=== PATIENT | male | born 1955 | race Caucasian/White ===

== ENCOUNTER 2017-09-16 04:02 | Inpatient (IN) | payer OTHER, SELFPAY ==
[2017-09-16] VITALS (23 sets, daily range): BP systolic 80–108; BP diastolic 44–66; PULSE 76–111; RESP 16–35; TEMP 36.3–37.4; O2SAT 76–96; BMI 16.9; BMI 16.5; BMI 17.0
--- NOTE | 2017-09-16 04:42 | EKG12_ITS ---
Test Reason : SOB Blood Pressure : / mmHG Vent. Rate : 101 BPM Atrial Rate : 101 BPM P-R Int : 238 ms QRS Dur : 136 ms QT Int : 336 ms P-R-T Axes : 081 041 191 degrees QTc Int : 435 ms Sinus tachycardia with 1st degree A-V block Left bundle branch block Abnormal ECG Confirmed by GAVINO CASON, JOSE ([id number]), magazine editor DIXON ALLEN ([id number] on 09/19/2017 3:05:17 PM Referred By: CHON Confirmed By:JOSE MANCIA MD
[2017-09-16 05:00] LABS: Absolute Lymphocyte Count 0.22 X10^3/ul (0.83-4.51); Absolute Neutrophil Count 11.2 X10^3/uL (2.0-7.7); Basophil# 0.02 X10^3/uL; Basophil% 0.2 % (0-1); Eosinophil# 0.02 X10^3/uL; Eosinophils% 0.2 % (0-5); Hematocrit 35.3 % (40-54); Hemoglobin 12.1 g/dl (13.0-16.5); Lymphocyte # 0.22 X10^3/ul (4.0); Lymphocyte % 1.8 % (19-41); Mean Corp Hgb Conc 34.3 g/gl (32-36); Mean Corpuscular Hgb 29.5 pg (27.0-32.0); Mean Corpuscular Volume 86.1 fL (80-94); Mean Platelet Vol. 10.4 fl (6.2-12.0); Monocyte# 0.47 X10^3/uL; Monocyte% 3.9 % (0-10); Neutrophil # 11.21 X10^3/uL (2.7-7.7); Neutrophil % 93.7 % (47-70); Platelet Count 386 K/mm3 (150-450); RBC Distribution Width CV 19.7 % (11.6-14.6); RBC Distribution Width SD 60.1 fl (35.1-43.9)
--- NOTE | 2017-09-16 05:00 | RAD_ITS ---
STUDY: X-RAY CHEST REASON FOR EXAM: Male, 62 years old. Shortness of breath TECHNIQUE: Single AP portable view of the chest. COMPARISON: 01/04/2017. FINDINGS: The lungs are hyper expanded. Patchy left lung opacities. Chronic interstitial changes. Surgical clips right apex. There is no demonstrated pleural abnormality. Normal size heart. Patient status post sternotomy. Normal mediastinum and liza. Normal visualized pulmonary arteries. Normal visualized aortic arch and descending thoracic aorta. Normal visualized thoracic spine. Normal visualized ribs and shoulders. Healed right clavicle. There is no demonstrated abnormality of the visualized soft tissue structures of the upper abdomen. RAD/Chest 1 View (Portable) IMPRESSION: Patchy left lung infiltrates. Hyperinflation. Electronically Signed: Live Fajardo DO at 6:08 EDT , Service support ,
[2017-09-16 05:02] LABS: Differential Indicated SCAN CRITERIA MET; POSITIVE COUNT NO; POSITIVE DIFFERENTIAL YES; POSITIVE MORPHOLOGY NO
[2017-09-16 05:09] LABS: ALB/GLOB Ratio 0.6 RATIO (0.9-2.4); AST(SGOT) 26 U/L (15-37); Alanine Aminotransfer ALT/SGPT 31 U/L (16-61); Albumin, Serum 2.9 g/dL (3.2-5.0); Alkaline Phosphatase 198 U/L (45-117); Anion Gap 9 (5-15); BUN 30 mg/dL (7-18); BUN/Creat Ratio 25.2 RATIO (10-20); Calcium,Total 8.2 mg/dL (8.5-10.1); Chloride 99 mmol/L (98-107); Creatinine, Serum 1.19 mg/dL (0.70-1.30); EST Glomerular Filtration Rate 66 mL/min (>60); Est Glom Filt Rate - Afr Amer 80 mL/min (>60); Estimated Creatinine Clearance 56.92 ml/min; Globulin 4.6 g/dL (2.2-4.2); Glucose 84 mg/dL (74-106); Potassium 4.3 mmol/L (3.5-5.1); Protein, Total 7.5 g/dL (6.4-8.2); Sodium Level 138 mmol/L (136-145)
[2017-09-16 05:12] LABS: Differential Comment SCANNED
[2017-09-16 05:16] LABS: Lactic Acid 2.7 mmol/L (0.4-2.0)
[2017-09-16 05:53] LABS: Prothrombin Time (Protime)PT. 42.8 SECONDS (11.7-14.9)
[2017-09-16 05:54] LABS: Partial Thromboplast Time 52.6 Seconds (24.1-36.2)
[2017-09-16 06:01] LABS: International Normalized Ratio 4.5
--- NOTE | 2017-09-16 06:02 | NURSING ---
Addendum entered by Aditi Lemus 09/16/17 06:10: Original Note: MD NOTIFIED OF PT4.5
[2017-09-16 06:11] LABS: Allen Test POS; Base Excess 2 mmol/L (-2 to +2); Bicarbonate 26.6 mmol/L (22-26); Blood Gas Specimen Type ART; O2 Delivery Device Nasal Can; PO2 75 mmHG (75-100); SITE R Radial; SO2 95 % (95-99); Time Given 606; Total Carbon Dioxide 28 mmol/L; pCO2 44.7 mmHg (35-45); pH 7.38 (7.35-7.45)
[2017-09-16 06:55] LABS: Mucous, Urine 0 SEEN /hpf (<or=2+); Red Blood Cells-Urine 0 SEEN /hpf (0-5)
[2017-09-16 07:01] LABS: Color, Urine Yellow (Yellow); Glucose, Dipstick Normal (Normal); Ketone-Dipstick 5 mg/dl (Negative); Leukocyte Esterase-Dipstick 25 /ul (Negative); Nitrite-Dipstick Negative (Negative); Occult Blood-Urine Negative /ul (Negative); Protein-Dipstick 30 mg/dl (Negative); Specific Gravity, Urine 1.025 (1.002-1.030); Urine Clarity Sl. Cloudy (Clear); Urine Urobilinogen 8 mg/dl (Normal)
[2017-09-16 07:08] LABS: Urine Bilirubin Dipstick 1 mg/dL (Negative)
[2017-09-16 07:09] LABS: Bacteria RARE /hpf (None Seen); Squamous Epithelial Cells - UA 0-5 SEEN /hpf (0-5); White Blood Cells 0-5 SEEN /hpf (0-5)
--- NOTE | 2017-09-16 07:35 | ED.RN ---
REPEAT LACTIC ACID DRAWN PER HOSPITAL POLICY
[2017-09-16 08:49] LABS: Reflex Lactate? Y
[2017-09-16 08:59] LABS: Lactic Acid 1.5 mmol/L (0.4-2.0)
--- NOTE | 2017-09-16 09:48 | NURSING ---
CALLED L[facility]TON IN ER TO TELL HER PT WAS OKAY TO SEND UP.
[2017-09-16] MEDS: 0.9% Normal Saline 1,000 ML 150 ML IV (10:30)
[2017-09-16] MEDS: Heparin Injection (Vial) 5,000 UNIT/ML VIAL 5000 UNIT SC ×2 (11:17→21:18)
--- NOTE | 2017-09-16 12:00 | CON.PCM_ITS ---
Problem List (1) Dysphasia Status: Acute (2) Aspiration pneumonia due to food (regurgitated) Status: Acute Qualifiers: Laterality: left Lung location: upper lobe of lung Qualified Code(s): J69.0 - Pneumonitis due to inhalation of food and vomit (3) CHF (congestive heart failure) Status: Chronic (4) Subtherapeutic international normalized ratio (INR) Status: Acute (5) Chronic anticoagulation Status: Chronic (6) Status post mitral valve replacement Status: Chronic (7) Status post aortic valve replacement Status: Chronic (8) Normochromic normocytic anemia Status: Chronic (9) Atrial fibrillation Status: Chronic Qualifiers: (10) Hodgkin's disease in remission Status: Chronic Reason for Consult Date of Consultation: 09/16/17 Reason for Consultation: Hypoxic respiratory failure History of Present Illness: The patient is a 62 year old M, with past medical history listed below, who presented to [facility] on 09/16/2017 secondary to increasing shortness of breath. Patient reports a long history of progressive shortness of breath, but had an acute aspiration event yesterday. Patient states that he tried to take some p.o. food while lying on his left side. Patient developed a coughing episode. Patient denies any obvious emesis, but states he had a cough productive of green to yellow sputum this morning. No ER documentation is reported at this time, but the E HR states the patient was 76% on room air, blood pressure of 94/66 with a temperature of 37.4?C. Patient was placed on 6 L nasal cannula oxygen with improvement. There was some concern patient may require intubation, but did improve with therapy provided in the emergency room. Patient was admitted to the PCU for further monitoring. On my arrival, patient reports subjective improvement in overall condition. Patient reports some fatigue and a cough productive of yellow to green sputum. Patient denies any exposure to asbestos or TB. Patient did receive radiation as part of his cancer therapy. Patient reports a history of pleural effusions, but this is improved after initiation of Lasix therapy. Patient states this does not feel like a pleural effusion. Chest x-ray shows extensive left-sided infiltrates. Patient was clear that he was lying on his left side during the choking episode. Patient reports a long history of breathing difficulties, but has had extensive workup and [facility] indicating dysphasia. Patient states he has been seen by Dr. Mallory in the past at [facility] secondary to pleural effusions. Patient is unclear if he ever had pulmonary function testing. Patient states he was on supplemental oxygen transiently in the past, but this was discontinued sometime ago. Patient does not routinely use inhaler therapy. Patient does have a history of Hodgkin's lymphoma status post radiation. Patient has noted significant weight loss following therapy in an inability to regain weight. Extensive workup at [facility] has shown patient has dysphasia and is supposed to have a PEG tube placed early next week per his report. Patient is on prednisone therapy at baseline, but is unclear of the medication. Patient does report an extensive heart history that is also taking care of at [facility]. Past Medical History Past Medical History (Chronic Problems): Chronic Problems CHF (congestive heart failure) (Chronic) Hypothyroidism (Chronic) Chronic anticoagulation (Chronic) Status post mitral valve replacement (Chronic) Status post aortic valve replacement (Chronic) Normochromic normocytic anemia (Chronic) Bilateral pleural effusion (Chronic) Atrial fibrillation (Chronic) Pleural effusion (Chronic) Hodgkin's disease in remission (Chronic) Mitral valve regurgitation (Chronic) Aortic valve regurgitation (Chronic) Allergies meloxicam Adverse Reaction (Verified 09/16/17 04:11) Nausea naproxen [From Naprosyn] Adverse Reaction (Verified 09/16/17 04:11) Nausea Home Medications: Ambulatory Orders Medication Instructions Recorded Aspirin [Aspirin, Baby] 81 mg PO DAILY@0800 01/23/16 Furosemide [Lasix] 20 mg PO QODAY 01/23/16 Levothyroxine [Synthroid] 100 mcg PO DAILY 01/23/16 Amiodarone HCl [Pacerone] 100 mg PO DAILY 01/01/17 Omeprazole 20 mg PO DAILY 01/01/17 Prednisone 5 mg PO DAILY 01/01/17 Spironolactone [Aldactone] 25 mg PO QODAY 09/16/17 Warfarin [Coumadin] 1 mg PO DAILY@1700 09/16/17 Surgical History: arthroscopy, knee, - - splenectomy for Hodgkin's disease, fracture rt arm, repair of right foot drop, exploratory laparotomy of chest and abdomen for Hodgkin's disease, s/p nasal surgery, bioprosthetic AVR and MVR at [facility] Psychiatric History: No pertinent psych hx Smoking Status: Former smoker - *Family History Maternal History Items: Cancer - colon cancer Review of Systems Comment: See HPI, otherwise negative ?10 systems. Patient Problems: Active and Suspected Problems Dysphasia (Acute) Aspiration pneumonia due to food (regurgitated) (Acute) Objective: Chest x-ray was personally reviewed and shows extensive alveolar infiltrates on the left. - Physical Exam General: Alert, Oriented x3, Cooperative, - - Mild respiratory distress. Cachectic. Appears older than stated age. HEENT: Atraumatic, PERRLA, EOMI, Normocephalic, - - No scleral icterus or injection noted. Oral: Moist Mucosa, No Gingival or Mucosal Lesions/ Ulcerations, - - Good dentition noted. Neck: Supple, No JVD, No Nodes, Trachea Midline Lungs: No wheeze, No rales, Diminished, Rhonchi - Left, - - Symmetric expansion. No dullness to percussion. Cardiovascular: Normal S1, Normal S2, No murmurs, Irregular Rate, No rub noted, No Gallop, - - Mechanical heart sounds noted. Abdomen: Bowel Sounds Present, Soft, Non Tender, Non-Distended Extremities: No cyanosis, No edema, Capillary Refill Less than 3 Seconds, Clubbing Skin: No rashes, No breakdown Musculoskeletal: No Tenderness to Palpation of Joints or Extremities Lymphatic: No Cervical, Supraclavicular, or Inguinal Adenopathy Neurological: Cranial nerves II-XII grossly intact, Neuro grossly intact, Motor Exam 5/5 strength throughout Psych/Mental Status: Alert and oriented to time, place, person, mood and affect Vital Signs Temp Pulse Resp BP Pulse Ox 36.7 C 78 18 103/57 L 95 09/16/17 11:19 09/16/17 11:19 09/16/17 11:19 09/16/17 11:19 09/16/17 11:19 Oxygen Flow Rate (L/min) 4 Oxygen Delivery Method Nasal Cannula Weight: 59.9 kg Body Mass Index (BMI) 16.5 Laboratory Tests 09/16/17 09/16/17 09/16/17 04:20 04:20 04:20 WBC 12.0 H RBC 4.10 L Hgb 12.1 L Hct 35.3 L MCV 86.1 MCH 29.5 MCHC 34.3 RDW 19.7 H RDW Differential 60.1 H Plt Count 386 MPV 10.4 Immature Gran % (Auto) 0.200 Neut % (Auto) 93.7 H Lymph % (Auto) 1.8 L Cottle % (Auto) 3.9 Eos % (Auto) 0.2 Baso % (Auto) 0.2 Absolute Neuts (auto) 11.2 H Absolute Lymphs (auto) 0.22 L Total Counted Not Reportable Differential Comment SCANNED PT Cancelled INR Cancelled APTT Cancelled Specimen Type Sample Site pH Bicarbonate Actual POC Total CO2 Base Excess O2 Saturation ABG pCO2 ABG pO2 Percy Test O2 Delivery Device Liter Flow Blood Gas Notified Whom Blood Gas Notified Time Sodium 138 Potassium 4.3 Chloride 99 Carbon Dioxide 30.0 Anion Gap 9 BUN 30 H Creatinine 1.19 Estim Creat Clear Calc 56.92 Est GFR (MDRD) Af Amer 80 Est GFR (MDRD) Non-Af 66 BUN/Creatinine Ratio 25.2 H Glucose 84 Lactic Acid Calcium 8.2 L Total Bilirubin 0.80 AST 26 ALT 31 Alkaline Phosphatase 198 H Troponin I < 0.015 Total Protein 7.5 Albumin 2.9 L Globulin 4.6 H Albumin/Globulin Ratio 0.6 L Urine Color Urine Clarity Urine pH Ur Specific [place] Urine Protein Urine Glucose (UA) Urine Ketones Urine Occult Blood Urine Nitrite Urine Bilirubin Urine Urobilinogen Ur Leukocyte Esterase Urine RBC Urine WBC Ur Squamous Epith Cells Urine Bacteria Urine Mucus 09/16/17 09/16/17 09/16/17 04:20 05:00 05:40 WBC RBC Hgb Hct MCV MCH MCHC RDW RDW Differential Plt Count MPV Immature Gran % (Auto) Neut % (Auto) Lymph % (Auto) Cottle % (Auto) Eos % (Auto) Baso % (Auto) Absolute Neuts (auto) Absolute Lymphs (auto) Total Counted Differential Comment PT Cancelled 42.8 H INR Cancelled 4.5 H* APTT Cancelled 52.6 H Specimen Type Sample Site pH Bicarbonate Actual POC Total CO2 Base Excess O2 Saturation ABG pCO2 ABG pO2 Percy Test O2 Delivery Device Liter Flow Blood Gas Notified Whom Blood Gas Notified Time Sodium Potassium Chloride Carbon Dioxide Anion Gap BUN Creatinine Estim Creat Clear Calc Est GFR (MDRD) Af Amer Est GFR (MDRD) Non-Af BUN/Creatinine Ratio Glucose Lactic Acid 2.7 H Calcium Total Bilirubin AST ALT Alkaline Phosphatase Troponin I Total Protein Albumin Globulin Albumin/Globulin Ratio Urine Color Urine Clarity Urine pH Ur Specific [place] Urine Protein Urine Glucose (UA) Urine Ketones Urine Occult Blood Urine Nitrite Urine Bilirubin Urine Urobilinogen Ur Leukocyte Esterase Urine RBC Urine WBC Ur Squamous Epith Cells Urine Bacteria Urine Mucus 09/16/17 09/16/17 09/16/17 06:08 06:51 07:50 WBC RBC Hgb Hct MCV MCH MCHC RDW RDW Differential Plt Count MPV Immature Gran % (Auto) Neut % (Auto) Lymph % (Auto) Cottle % (Auto) Eos % (Auto) Baso % (Auto) Absolute Neuts (auto) Absolute Lymphs (auto) Total Counted Differential Comment PT INR APTT Specimen Type ART Sample Site R Radial pH 7.38 Bicarbonate Actual 26.6 H POC Total CO2 28 Base Excess 2 O2 Saturation 95 ABG pCO2 44.7 ABG pO2 75 Percy Test POS O2 Delivery Device Nasal Can Liter Flow 4.0 Blood Gas Notified Whom ED Blood Gas Notified Time 606 Sodium Potassium Chloride Carbon Dioxide Anion Gap BUN Creatinine Estim Creat Clear Calc Est GFR (MDRD) Af Amer Est GFR (MDRD) Non-Af BUN/Creatinine Ratio Glucose Lactic Acid 1.5 Calcium Total Bilirubin AST ALT Alkaline Phosphatase Troponin I Total Protein Albumin Globulin Albumin/Globulin Ratio Urine Color Yellow Urine Clarity Sl. Cloudy Urine pH 6.0 Ur Specific [place] 1.025 Urine Protein 30 H Urine Glucose (UA) Normal Urine Ketones 5 H Urine Occult Blood Negative Urine Nitrite Negative Urine Bilirubin 1 H Urine Urobilinogen 8 H Ur Leukocyte Esterase 25 H Urine RBC 0 SEEN Urine WBC 0-5 SEEN Ur Squamous Epith Cells 0-5 SEEN Urine Bacteria RARE Urine Mucus 0 SEEN Clinical Impression(s) from Imaging Studies Chest X-Ray 09/16/17 05:00 IMPRESSION: Patchy left lung infiltrates. Hyperinflation. Electronically Signed: Live Fajardo DO at 6:08 EDT , Service support , Assessment/Plan All Active Problems Dysphasia (Acute) Aspiration pneumonia due to food (regurgitated) (Acute) Septic shock (Acute) Dehydration (Acute) Subtherapeutic international normalized ratio (INR) (Acute) Elevated troponin (Acute) Hyperbilirubinemia (Acute) Hyperkalemia (Acute) Hyponatremia (Acute) Acute renal failure (Acute) Community acquired pneumonia (Acute) CHF (congestive heart failure) (Ruled-out) RECOMMENDATIONS: 1. Continue empiric aspiration antibiotics 2. Bronchodilators as ordered 3. Wean oxygen as tolerated 4. Consider speech therapy evaluation versus surgery for PEG placement 5. Monitor telemetry and renal function IMPRESSIONS: 1. Acute hypoxic respiratory failure secondary to probable aspiration pneumonia Not much objective data to review at this time. Patient reportedly has been seen at [facility] with extensive workup showing aspiration. Patient does report appropriate positioning on the left side to lead to aspiration and radiologic findings. Patient appears to be responding well. Low clinical suspicion for pleural effusion leading to current situation despite reported systolic congestive heart failure. Defer to hospitalist on whether speech therapy should be consulted for possible modifications versus consultation with surgery to have PEG placement. Wean oxygen as tolerated. BiPAP rescue nightly if necessary. Cannot exclude decompensation over the next 24 hours, but currently appears to be improving with therapy. ABG shows adequate oxygenation and ventilation on nasal cannula oxygen. 2. Elevated INR Patient with a reported history of mechanical heart valves. Would not recommend aggressive reversal of INR without heparin drip coverage. Patient is not reporting any bleeding complications at this time. However, INR will likely be prolonged with the addition of IV antibiotics. Recommend checking INR on a daily basis. Rapid reversal can be initiated if patient develops bleeding complications. 3. Acute versus chronic kidney disease Patient has a creatinine of 1.19, but given current BMI this appears to be elevated. Patient does get most of his care at an outside facility. Unknown baseline at this time. This may be secondary to chronic kidney disease and not acute prerenal etiology. Avoid nephrotoxic medications. No indication for renal replacement therapy at this time. 4. Severe malnutrition/dysphagia/history of Hodgkin's lymphoma/chronic systolic congestive heart failure/A. fib Complicates care, management, recovery and prognosis. Patient would benefit from initiation of tube feeds. Low clinical suspicion for active congestive heart failure at this time. Code Visit Inpatient E&M: 49221 Init Hosp L3
--- NOTE | 2017-09-16 12:03 | PCM.HP.STD ---
History of Present Illness Date of Admission: 09/16/17 Chief Complaint: sob, cough The patient is a 62 year old M with a hx of malnutrition, esophageal dysmotility, COPD, bronchiectasis, Hodgkins disease in remission, chronic anemia, hypothyroid, CHF, afib, prior AV/MV replacement, who presented to the ER with chief complaint of SOB and cough. This became severely worse over the last two days after he choked on food at home. He is supposed to be having a PEG tube placed to help him recover severe malnourishment which he developed 2/2 radiation induced esophageal dysfunction from treatment for Hodgkins disease (pt of Dr. Vanegas). Despite this the speech therapists at [facility] have not placed him on a thickened diet. He also is supposed to use O2 at home but it was taken away because he stopped using it, stating he checked his sats and they were fine. He has had fever, chills, malaise, fatigue, cough productive of yellow/green mucus. He was initially found to have a low BP in the ER on presentation but this improved with IV fluid administration. He appears to have a left sided pna on film, and prior CT shows bronchiectasis, although he does not see a apprentice architect. He is currently resting comfortably on 6 lpm in the ER without signs of conversational dyspnea. He was last admitted December last year with CHF/Pleural effusions and did require ICU stay on pressors. [] Past Medical History Past Medical History (Chronic Problems): Chronic Problems CHF (congestive heart failure) (Chronic) Hypothyroidism (Chronic) Chronic anticoagulation (Chronic) Status post mitral valve replacement (Chronic) Status post aortic valve replacement (Chronic) Normochromic normocytic anemia (Chronic) Bilateral pleural effusion (Chronic) Atrial fibrillation (Chronic) Pleural effusion (Chronic) Hodgkin's disease in remission (Chronic) Mitral valve regurgitation (Chronic) Aortic valve regurgitation (Chronic) Allergies meloxicam Adverse Reaction (Verified 09/16/17 04:11) Nausea naproxen [From Naprosyn] Adverse Reaction (Verified 09/16/17 04:11) Nausea Home Medications: Ambulatory Orders Medication Instructions Recorded Aspirin [Aspirin, Baby] 81 mg PO DAILY@0800 01/23/16 Furosemide [Lasix] 20 mg PO QODAY 01/23/16 Levothyroxine [Synthroid] 100 mcg PO DAILY 01/23/16 Amiodarone HCl [Pacerone] 100 mg PO DAILY 01/01/17 Omeprazole 20 mg PO DAILY 01/01/17 Prednisone 5 mg PO DAILY 01/01/17 Spironolactone [Aldactone] 25 mg PO QODAY 09/16/17 Warfarin [Coumadin] 1 mg PO DAILY@1700 09/16/17 Surgical History: arthroscopy, knee, - - splenectomy for Hodgkin's disease, fracture rt arm, repair of right foot drop, exploratory laparotomy of chest and abdomen for Hodgkin's disease, s/p nasal surgery, bioprosthetic AVR and MVR at [facility] Psychiatric History: No pertinent psych hx Lives: Spouse/ Significant Other Smoking Status: Former smoker Tobacco Use: Non-smoker Alcohol: None Drugs: None - *Family History Maternal History Items: Cancer - colon cancer Review of Systems Constitutional: Reports: Chills, Fever, Malaise, Weakness, Fatigue Cardiovascular: Denies: Chest Pain, Chest Pressure, Chest Tightness, Heaviness, Light Headedness, Palpitations Respiratory: Reports: Cough, Shortness of Breath, Shortness of breath at rest, Shortness of breath upon exertion. Denies: Hemoptysis, Pleuritic Pain Gastrointestinal: Denies: Abdominal Pain, Nausea, Vomiting Genitourinary: Denies: Dysuria Musculoskeletal: Denies: Joint Pain, Joint Tenderness Neurological: Denies: Numbness, Tingling, Focal weakness Psychiatric: Denies: Anxiety, Depression, Homicidal Ideations, Suicidal Ideations VTE Information - Inpt Only VTE Present on Admission: No VTE Mechan Device Prophylaxis: None VTE Pharm Prophylaxis ordered?: Yes Patient Problems: Active and Suspected Problems Dysphasia (Acute) Aspiration pneumonia due to food (regurgitated) (Acute) - Physical Exam Vital Signs Temp Pulse Resp BP Pulse Ox 98.1 F 78 18 103/57 L 95 09/16/17 11:19 09/16/17 11:19 09/16/17 11:19 09/16/17 11:19 09/16/17 11:19 Oxygen Flow Rate (L/min) 4 Oxygen Delivery Method Nasal Cannula Weight: 132 lb 0.91 oz Body Mass Index (BMI) 16.5 Assessment/Plan All Active Problems Dysphasia (Acute) Aspiration pneumonia due to food (regurgitated) (Acute) Septic shock (Acute) Dehydration (Acute) Subtherapeutic international normalized ratio (INR) (Acute) Elevated troponin (Acute) Hyperbilirubinemia (Acute) Hyperkalemia (Acute) Hyponatremia (Acute) Acute renal failure (Acute) Community acquired pneumonia (Acute) CHF (congestive heart failure) (Ruled-out) 1. Acute severe sepsis 2/2 Acute left sided pna CAP vs. aspiration - start unasyn, received rocephin/azith in ER. Consult to pulm / critical care. Mucinex, aerosols, PEP/IS therapy, check sputum cx, blood cx, urine antigens. Severe sepsis as evidenced by pna, elevated WBCs, tachypnea, tachycardia, elevated lactate. BP recovered with fluids. 2. Acute hypoxic respiratory failure 2/2 above - stable on 6lpm O2. Continue care as above. Does not use home O2, but has in the past. 2. Esophageal dysmotility with dysphagia - speech therapy eval. was not doing anything at home. Is scheduled for outpatient PEG tube. 3. Severe protein calorie malnutrition - consult principal process engineer. 4. Hx AF - in NSR - hold coumadin for elevated inr. Continue amiodarone 5. COPD - does not appear to be in acute exacerbation 6. Hx CHF, diastolic - EF 50%. He does not appear volume overloaded. Hold lasix with borderline pressures. 7. Mild normocytic anemia - stable 8. Hypothyroidism - synthroid 9. GERD - ppi. 10. Hx MV, AV replacement. DVT ppx: Heparin DC planning: PTOT. This patient was seen by Lobo Dean PA-C under the supervision of Doctor Hutton.
--- NOTE | 2017-09-16 12:08 | HP.PCM_ITS ---
History of Present Illness Date of Admission: 09/16/17 Chief Complaint: sob, cough The patient is a 62 year old M with a hx of malnutrition, esophageal dysmotility , COPD, bronchiectasis, Hodgkins disease in remission, chronic anemia, hypothyroid, CHF, afib, prior AV/MV replacement, who presented to the ER with chief complaint of SOB and cough. This became severely worse over the last two days after he choked on food at home. He is supposed to be having a PEG tube placed to help him recover severe malnourishment which he developed 2/2 radiation induced esophageal dysfunction from treatment for Hodgkins disease ( pt of Dr. Vanegas). Despite this the speech therapists at [facility] have not placed him on a thickened diet. He also is supposed to use O2 at home but it was taken away because he stopped using it, stating he checked his sats and they were fine. He has had fever, chills, malaise, fatigue, cough productive of yellow/ green mucus. He was initially found to have a low BP in the ER on presentation but this improved with IV fluid administration. He appears to have a left sided pna on film, and prior CT shows bronchiectasis, although he does not see a tectonophysicist. He is currently resting comfortably on 6 lpm in the ER without signs of conversational dyspnea. He was last admitted December last year with CHF/Pleural effusions and did require ICU stay on pressors. [] Past Medical History Past Medical History (Chronic Problems): Chronic Problems CHF (congestive heart failure) (Chronic) Hypothyroidism (Chronic) Chronic anticoagulation (Chronic) Status post mitral valve replacement (Chronic) Status post aortic valve replacement (Chronic) Normochromic normocytic anemia (Chronic) Bilateral pleural effusion (Chronic) Atrial fibrillation (Chronic) Pleural effusion (Chronic) Hodgkin's disease in remission (Chronic) Mitral valve regurgitation (Chronic) Aortic valve regurgitation (Chronic) Allergies meloxicam Adverse Reaction (Verified 09/16/17 04:11) Nausea naproxen [From Naprosyn] Adverse Reaction (Verified 09/16/17 04:11) Nausea Home Medications: Ambulatory Orders Medication Instructions Recorded Aspirin [Aspirin, Baby] 81 mg PO DAILY@0800 01/23/16 Furosemide [Lasix] 20 mg PO QODAY 01/23/16 Levothyroxine [Synthroid] 100 mcg PO DAILY 01/23/16 Amiodarone HCl [Pacerone] 100 mg PO DAILY 01/01/17 Omeprazole 20 mg PO DAILY 01/01/17 Prednisone 5 mg PO DAILY 01/01/17 Spironolactone [Aldactone] 25 mg PO QODAY 09/16/17 Warfarin [Coumadin] 1 mg PO DAILY@1700 09/16/17 Surgical History: arthroscopy, knee, - - splenectomy for Hodgkin's disease, fracture rt arm, repair of right foot drop, exploratory laparotomy of chest and abdomen for Hodgkin's disease, s/p nasal surgery, bioprosthetic AVR and MVR at [facility] Psychiatric History: No pertinent psych hx Lives: Spouse/ Significant Other Smoking Status: Former smoker Tobacco Use: Non-smoker Alcohol: None Drugs: None - *Family History Maternal History Items: Cancer - colon cancer Review of Systems Constitutional: Reports: Chills, Fever, Malaise, Weakness, Fatigue Cardiovascular: Denies: Chest Pain, Chest Pressure, Chest Tightness, Heaviness, Light Headedness, Palpitations Respiratory: Reports: Cough, Shortness of Breath, Shortness of breath at rest, Shortness of breath upon exertion. Denies: Hemoptysis, Pleuritic Pain Gastrointestinal: Denies: Abdominal Pain, Nausea, Vomiting Genitourinary: Denies: Dysuria Musculoskeletal: Denies: Joint Pain, Joint Tenderness Neurological: Denies: Numbness, Tingling, Focal weakness Psychiatric: Denies: Anxiety, Depression, Homicidal Ideations, Suicidal Ideations VTE Information - Inpt Only VTE Present on Admission: No VTE Mechan Device Prophylaxis: None VTE Pharm Prophylaxis ordered?: Yes Patient Problems: Active and Suspected Problems Dysphasia (Acute) Aspiration pneumonia due to food (regurgitated) (Acute) - Physical Exam Vital Signs Temp Pulse Resp BP Pulse Ox 98.1 F 78 18 103/57 L 95 09/16/17 11:19 09/16/17 11:19 09/16/17 11:19 09/16/17 11:19 09/16/17 11:19 Oxygen Flow Rate (L/min) 4 Oxygen Delivery Method Nasal Cannula Weight: 132 lb 0.91 oz Body Mass Index (BMI) 16.5 Assessment/Plan All Active Problems Dysphasia (Acute) Aspiration pneumonia due to food (regurgitated) (Acute) Septic shock (Acute) Dehydration (Acute) Subtherapeutic international normalized ratio (INR) (Acute) Elevated troponin (Acute) Hyperbilirubinemia (Acute) Hyperkalemia (Acute) Hyponatremia (Acute) Acute renal failure (Acute) Community acquired pneumonia (Acute) CHF (congestive heart failure) (Ruled-out) 1. Acute severe sepsis 2/2 Acute left sided pna CAP vs. aspiration - start unasyn, received rocephin/azith in ER. Consult to pulm / critical care. Mucinex , aerosols, PEP/IS therapy, check sputum cx, blood cx, urine antigens. Severe sepsis as evidenced by pna, elevated WBCs, tachypnea, tachycardia, elevated lactate. BP recovered with fluids. 2. Acute hypoxic respiratory failure 2/2 above - stable on 6lpm O2. Continue care as above. Does not use home O2, but has in the past. 2. Esophageal dysmotility with dysphagia - speech therapy eval. was not doing anything at home. Is scheduled for outpatient PEG tube. 3. Severe protein calorie malnutrition - consult county engineer. 4. Hx AF - in NSR - hold coumadin for elevated inr. Continue amiodarone 5. COPD - does not appear to be in acute exacerbation 6. Hx CHF, diastolic - EF 50%. He does not appear volume overloaded. Hold lasix with borderline pressures. 7. Mild normocytic anemia - stable 8. Hypothyroidism - synthroid 9. GERD - ppi. 10. Hx MV, AV replacement. DVT ppx: Heparin DC planning: PTOT. This patient was seen by Lobo Dean PA-C under the supervision of Doctor Hutton.
[2017-09-16] MEDS: Ipratropium/Albuterol Sulfate 3 ML AMPUL.NEB INHALATION ×2 (13:22→20:21)
[2017-09-16] MEDS: 0.9% Normal Saline 1,000 ML 100 ML IV (16:20)
[2017-09-17] VITALS (15 sets, daily range): BP systolic 106–115; BP diastolic 50–61; PULSE 76–86; RESP 16–18; TEMP 36.6–36.8; O2SAT 88–95
[2017-09-17] MEDS: Ipratropium/Albuterol Sulfate 3 ML AMPUL.NEB INHALATION ×4 (01:42→21:00)
[2017-09-17] MEDS: 0.9% Normal Saline 1,000 ML 100 ML IV ×2 (03:50→14:11)
--- NOTE | 2017-09-17 06:00 | RAD_ITS ---
STUDY: X-RAY CHEST REASON FOR EXAM: Male, 62 years old. Shortness of breath. TECHNIQUE: Single AP portable view of the chest. COMPARISON: September 16, 2017. FINDINGS: The patient has had a sternotomy. Cardiac monitoring leads are present. The lungs are expanded. There is patchy left-sided airspace consolidation. There is diffuse increase in attenuation of the left hemithorax compared to the right. This is unchanged since the previous study. This could be the result of airspace disease or pleural thickening. There is also increased attenuation of the right lung base similar to previous study that may represent airspace disease. There is mild interstitial thickening in both lungs. There are bilateral pleural effusions. There is borderline cardiomegaly. Normal mediastinum and liza. There is prominence of the pulmonary hilar arteries without peripheral pulmonary vascular congestion. There is atherosclerotic calcification of the aortic arch with tortuosity. There is demineralization of the osseous structures. There is deformity of the right clavicle probably related to old fracture. Surgical clips are visible near the right lung apex. There is no demonstrated abnormality of the visualized soft tissue structures of the upper abdomen. RAD/Chest 1 View (Portable) IMPRESSION: Essentially unchanged appearance the chest with multiple findings as described. Electronically Signed: Kristi Leon MD at 11:52 EDT , Service support ,
[2017-09-17 06:05] LABS: Hematocrit 35.2 % (40-54); Hemoglobin 11.3 g/dl (13.0-16.5); Mean Corp Hgb Conc 32.1 g/gl (32-36); Mean Corpuscular Hgb 28.8 pg (27.0-32.0); Mean Corpuscular Volume 89.6 fL (80-94); Mean Platelet Vol. 10.6 fl (6.2-12.0); Platelet Count 346 K/mm3 (150-450); RBC Distribution Width CV 19.5 % (11.6-14.6); RBC Distribution Width SD 63.5 fl (35.1-43.9); Red Blood Count 3.93 M/mm3 (4.6-6.2); White Blood Count 13.2 K/mm3 (4.4-11.0)
[2017-09-17 06:12] LABS: Scan Indicated on CBC? Y/N NO
[2017-09-17 06:20] LABS: Prothrombin Time (Protime)PT. 56.5 SECONDS (11.7-14.9)
[2017-09-17 06:25] LABS: International Normalized Ratio 6.3
[2017-09-17 06:32] LABS: Anion Gap 11 (5-15); BUN 28 mg/dL (7-18); BUN/Creat Ratio 32.1 RATIO (10-20); Calcium,Total 8.4 mg/dL (8.5-10.1); Chloride 106 mmol/L (98-107); Creatinine, Serum 0.87 mg/dL (0.70-1.30); EST Glomerular Filtration Rate 94 mL/min (>60); Est Glom Filt Rate - Afr Amer 114 mL/min (>60); Estimated Creatinine Clearance 76.81 ml/min; Glucose 64 mg/dL (74-106); Potassium 4.2 mmol/L (3.5-5.1); Sodium Level 142 mmol/L (136-145)
[2017-09-17] MEDS: Aspirin 81 MG TAB.CHEW PO (10:28)
[2017-09-17] MEDS: Amiodarone 200 MG Tablet 100 MG PO (10:28)
[2017-09-17] MEDS: predniSONE 5 MG Tablet PO (10:29)
[2017-09-17] MEDS: Pantoprazole Sodium 20 MG Tablet PO (10:29)
[2017-09-17] MEDS: Levothyroxine 100 MCG Tablet PO (10:30)
--- NOTE | 2017-09-17 12:26 | PCM.PROGNOTE ---
Patient Problems: Active and Suspected Problems Dysphasia (Acute) Aspiration pneumonia due to food (regurgitated) (Acute) Subjective: overall improved. Continues to have yellow green productive sputum occasionally pink streaked without bright red blood. No fever or chills. He is anxious to eat. No chest pain at this time. - Physical Exam General: Alert, Oriented x3, Cooperative HEENT: Atraumatic, PERRLA, EOMI, Normocephalic Neck: Supple, No JVD, Negative Carotid Bruits Lungs: Rales - mild left sided Cardiovascular: Regular rate, No murmurs Abdomen: Bowel Sounds Present, Soft, Non Tender Extremities: No edema, Capillary Refill Less than 3 Seconds Skin: No rashes, No breakdown Musculoskeletal: No Tenderness to Palpation of Joints or Extremities Neurological: Cranial nerves II-XII grossly intact Psych/Mental Status: Normal Affect, Appropriate, Alert and oriented to time, place, person, mood and affect Vital Signs Temp Pulse Resp BP Pulse Ox 98.1 F 82 16 115/61 95 09/17/17 10:22 09/17/17 10:54 09/17/17 10:22 09/17/17 10:22 09/17/17 10:22 Oxygen Flow Rate (L/min) 1.5 Oxygen Delivery Method Room Air Weight: 134 lb 4.184 oz Body Mass Index (BMI) 16.5 Intake and Output for Last 24 Hours 09/15/17 09/16/17 09/17/17 23:59 23:59 23:59 Intake Total 892 / 892 1411 / 1411 Output Total 200 / 200 175 / 175 Balance 692 / 692 1236 / 1236 Laboratory Tests Past 24 Hrs 09/17/17 09/17/17 09/17/17 05:43 05:43 05:43 WBC 13.2 H RBC 3.93 L Hgb 11.3 L Hct 35.2 L MCV 89.6 MCH 28.8 MCHC 32.1 RDW 19.5 H RDW Differential 63.5 H Plt Count 346 MPV 10.6 PT 56.5 H INR 6.3 H* Sodium 142 Potassium 4.2 Chloride 106 Carbon Dioxide 25.0 Anion Gap 11 BUN 28 H Creatinine 0.87 Estim Creat Clear Calc 76.81 Est GFR (MDRD) Af Amer 114 Est GFR (MDRD) Non-Af 94 BUN/Creatinine Ratio 32.1 H Glucose 64 L Calcium 8.4 L Troponin I 09/17/17 08:35 WBC RBC Hgb Hct MCV MCH MCHC RDW RDW Differential Plt Count MPV PT INR Sodium Potassium Chloride Carbon Dioxide Anion Gap BUN Creatinine Estim Creat Clear Calc Est GFR (MDRD) Af Amer Est GFR (MDRD) Non-Af BUN/Creatinine Ratio Glucose Calcium Troponin I < 0.015 Medical Necessity - Tobacco Use Smoking Status: Former smoker Tobacco Use: Non-smoker Assessment/Plan All Active Problems Dysphasia (Acute) Aspiration pneumonia due to food (regurgitated) (Acute) Septic shock (Resolved) Dehydration (Resolved) Subtherapeutic international normalized ratio (INR) (Acute) Elevated troponin (Resolved) Hyperbilirubinemia (Resolved) Hyperkalemia (Resolved) Hyponatremia (Resolved) Acute renal failure (Resolved) Community acquired pneumonia (Acute) CHF (congestive heart failure) (Ruled-out) 1. Acute severe sepsis 2/2 Acute left sided pna CAP vs. aspiration - continue unasyn, speech therapy, IS/PEP, aerosols -Repeat CXR with minimal change -mild increase in leukocytosis. -strep antigen neg, legionella antigen pending -blood cx pending -pulm following 2. Acute hypoxic respiratory failure 2/2 above - Continue care as above. Does not use home O2, but has in the past. -O2 demand has improved significantly since admission. 2. Esophageal dysmotility with dysphagia - speech therapy eval. was not doing anything at home with regards to dietary modification. Is scheduled for outpatient PEG tube. 3. Severe protein calorie malnutrition - consult senior electronics technician. 4. Hx AF - in NSR - hold coumadin for elevated inr. Continue amiodarone. Defer vitK for now. 5. Hx Bronchiectasis per old CT. 6. Hx CHF, diastolic - EF 50%. He does not appear volume overloaded. Hold lasix with borderline pressures. 7. Mild normocytic anemia - stable 8. Hypothyroidism - synthroid 9. GERD - ppi. 10. Hx bioprosthetic MV, AV replacement. DVT ppx: Heparin DC planning: PTOT. This patient was seen by Lobo Dean PA-C under the supervision of Doctor Hutton.
--- NOTE | 2017-09-17 13:39 | PN_ITS ---
Patient Problems: Active and Suspected Problems Dysphasia (Acute) Aspiration pneumonia due to food (regurgitated) (Acute) Subjective: Patient reports significant improvement in overall condition compared to previous. Patient denies any dyspnea at rest and is currently at room air. Patient has reported a minimally productive cough. Patient's is currently at the bedside. - Physical Exam General: Alert, Oriented x3, Cooperative, - - Cachectic. Speaking in full sentences. HEENT: Atraumatic, PERRLA, EOMI, Normocephalic, - - Temporal wasting noted. Oral: Moist Mucosa, No Gingival or Mucosal Lesions/ Ulcerations Neck: Supple, No JVD, No Nodes, Trachea Midline Lungs: No wheeze, No rales, Diminished, Rhonchi - Left base Cardiovascular: Regular rate, Regular Rhythm, Normal S1, Normal S2, No murmurs, No rub noted, No Gallop Abdomen: Bowel Sounds Present, Soft, Non Tender, Non-Distended, - - Scaphoid abdomen Extremities: No cyanosis, No edema, Capillary Refill Less than 3 Seconds, Clubbing Skin: - - No significant change compared to previous Musculoskeletal: Cachexia, Muscle Wasting Lymphatic: No Cervical, Supraclavicular, or Inguinal Adenopathy Neurological: Cranial nerves II-XII grossly intact, Neuro grossly intact, Motor Exam 5/5 strength throughout Psych/Mental Status: Alert and oriented to time, place, person, mood and affect Vital Signs Temp Pulse Resp BP Pulse Ox 36.7 C 82 16 115/61 95 09/17/17 10:22 09/17/17 10:54 09/17/17 10:22 09/17/17 10:22 09/17/17 10:22 Oxygen Flow Rate (L/min) 1.5 Oxygen Delivery Method Room Air Weight: 60.9 kg Body Mass Index (BMI) 16.5 Intake and Output for Last 24 Hours 09/15/17 09/16/17 09/17/17 23:59 23:59 23:59 Intake Total 892 / 892 2140 / 2140 Output Total 200 / 200 475 / 475 Balance 692 / 692 1665 / 1665 Laboratory Tests Past 24 Hrs 09/17/17 09/17/17 09/17/17 05:43 05:43 05:43 WBC 13.2 H RBC 3.93 L Hgb 11.3 L Hct 35.2 L MCV 89.6 MCH 28.8 MCHC 32.1 RDW 19.5 H RDW Differential 63.5 H Plt Count 346 MPV 10.6 PT 56.5 H INR 6.3 H* Sodium 142 Potassium 4.2 Chloride 106 Carbon Dioxide 25.0 Anion Gap 11 BUN 28 H Creatinine 0.87 Estim Creat Clear Calc 76.81 Est GFR (MDRD) Af Amer 114 Est GFR (MDRD) Non-Af 94 BUN/Creatinine Ratio 32.1 H Glucose 64 L Calcium 8.4 L Troponin I 09/17/17 08:35 WBC RBC Hgb Hct MCV MCH MCHC RDW RDW Differential Plt Count MPV PT INR Sodium Potassium Chloride Carbon Dioxide Anion Gap BUN Creatinine Estim Creat Clear Calc Est GFR (MDRD) Af Amer Est GFR (MDRD) Non-Af BUN/Creatinine Ratio Glucose Calcium Troponin I < 0.015 Clinical Impression(s) from Imaging Studies Chest X-Ray 09/17/17 06:00 IMPRESSION: Essentially unchanged appearance the chest with multiple findings as described. Electronically Signed: Kristi Leon MD at 11:52 EDT , Service support , Medical Necessity - Tobacco Use Smoking Status: Former smoker Tobacco Use: Non-smoker Assessment/Plan All Active Problems Dysphasia (Acute) Aspiration pneumonia due to food (regurgitated) (Acute) Septic shock (Resolved) Dehydration (Resolved) Subtherapeutic international normalized ratio (INR) (Acute) Elevated troponin (Resolved) Hyperbilirubinemia (Resolved) Hyperkalemia (Resolved) Hyponatremia (Resolved) Acute renal failure (Resolved) Community acquired pneumonia (Acute) CHF (congestive heart failure) (Ruled-out) RECOMMENDATIONS: 1. Continue empiric aspiration antibiotics 2. Bronchodilators as ordered 3. Wean oxygen as tolerated 4. Consider speech therapy evaluation versus surgery for PEG placement 5. Consider low-dose vitamin K IMPRESSIONS: 1. Acute hypoxic respiratory failure secondary to probable aspiration pneumonia Not much objective data to review at this time. Patient reportedly has been seen at [facility] with extensive workup showing aspiration. Patient does report appropriate positioning on the left side to lead to aspiration and radiologic findings. Patient appears to be responding well. Patient is back to room air this morning. Patient should likely be treated with 5-7 days of antibiotics, Augmentin would be appropriate as a p.o. option. Did discuss with the patient at length about the importance of possibly moving up the PEG placement to avoid future aspiration events. Patient states that it is currently scheduled for October 03. 2. Elevated INR Patient with a reported history of mechanical heart valves. Would not recommend aggressive reversal of INR without heparin drip coverage. Patient is not reporting any bleeding complications at this time. However, INR will likely be prolonged with the addition of IV antibiotics. Recommend checking INR on a daily basis. Consider low-dose vitamin K. 3. Acute versus chronic kidney disease Improved compared to admission creatinine of 1.19, but given current BMI this appears to be elevated. Patient does get most of his care at an outside facility. Unknown baseline at this time. This may be secondary to chronic kidney disease and not acute prerenal etiology. Avoid nephrotoxic medications. No indication for renal replacement therapy at this time. 4. Severe malnutrition/dysphagia/history of Hodgkin's lymphoma/chronic systolic congestive heart failure/A. fib Complicates care, management, recovery and prognosis. Patient would benefit from initiation of tube feeds. Low clinical suspicion for active congestive heart failure at this time. Code Visit Inpatient E&M: 99051 Subs Hosp L2
[2017-09-18] VITALS (13 sets, daily range): BP systolic 130–146; BP diastolic 63–86; PULSE 77–91; RESP 16–18; TEMP 36.4–36.7; O2SAT 90–95
[2017-09-18] MEDS: 0.9% Normal Saline 1,000 ML 100 ML IV (00:25)
--- NOTE | 2017-09-18 01:25 | ED.VISSUMM ---
- ER Visit Summary Date of Service: 09/16/17 Chief Complaint: dyspnea, cough History of Present Illness: The patient is a 62 M presents with increasing dyspnea and c Complains of chills. Sputum production.No chest pains.patient history of Hodgkin's lymphoma d radiation therapy. Does have history of pleural effusions in the past requiring O2 therapy. His recommended continuing of oxygen, zizy reports that he signed a waiver to stop oxygSpouse is present. Does admit to congestive heart failure history. History of paroxysmal atrial fibrillat Patient complains of recent vomiting and diarrhea, no recent antibiotics. history of poor oral intake. States he is scheduled to get a feeding tube October 02 through the [facility]. Remote tobacco in the past. Physical Examination: General: Cachetic male, alert and oriented, no acute distress HEENT: Normocephalic, nontraumatic. Moist mucosa membranes. Neck: Supple, nontender Cardiovascular: Regular tachycardicrate and rhythm, no murmurs Lungs: no distress,mild wheezing left lung. Abdomen: Soft, nontender, nondistended, normal bowel sounds. Extremities: Active range of motion ?4. No edema. Pulses intact ?4. Neurological: No focal neurological deficits. Test Results: EKG sinus rhythm one oh one. First-degree block. No White count twelve. Humulin 12.1. Cr Liver enzymes normal. INR 9.5.Troponin negative. Blood culture ?2 pending. Lactic acid ABG pH 7.38, CO2 forty-four, PO2 seventy-fiveon 6 L of oxygen.Chest x-ray: Left sided infiltrate Emergency Department Course and Treatment: initial blood pressure 94/66 arrival. Pulse ox was 76% on RA. Sepsis protocol initiate due to low blood pressure. IV fluids were given continued on oxygen.chest x-ray noted left sided infiltrate. Blood cultures ?2. Lactic acid is 2.7. aBG stable on 6 L. Cardiac studies are negative. Patient meets community-acquired p 2 g Rocephin IV and Zithromax was Recheck blood pressure 96/50 with a map of 68. Blood pressure borderline, however clinic Initially spoke with hospitalist , checked with nursing staff initially, the bed availability's. Discussed with patient and spouse, and initiated process to transfer to the [facility]. During process and day team arrival, reported there was room for the patient to stay at this hospital. Discussed with patient, who would like to stay here.Awaiting call back from daytime hospitalist. Signout to morning physician to admit. Treatment Plan: [] Disposition: admission Impression: 1. Severe sepsis 2. community-acquired pneumonia 3. hypoxemia This note was generated with [employer] dictation software. It may contain incorrect words, spelling, and punctuation that were not noted in review of the chart prior to signing ED Disposition - Plan for ED Patient: Disposition: Acute Care Hospital [facility] Chief Complaint: Shortness of Breath Diagnosis: Community acquired pneumonia, Severe sepsis, Hypoxemia
--- NOTE | 2017-09-18 01:34 | ED.DCSUM_ITS ---
- ER Visit Summary Date of Service: 09/16/17 Chief Complaint: dyspnea, cough History of Present Illness: The patient is a 62 M presents with increasing dyspnea and c Complains of chills. Sputum production.No chest pains.patient history of Hodgkin's lymphoma d radiation therapy. Does have history of pleural effusions in the past requiring O2 therapy. His recommended continuing of oxygen , izzy reports that he signed a waiver to stop oxygSpouse is present. Does admit to congestive heart failure history. History of paroxysmal atrial fibrillat Patient complains of recent vomiting and diarrhea, no recent antibiotics. history of poor oral intake. States he is scheduled to get a feeding tube October 02 through the [facility]. Remote tobacco in the past. Physical Examination: General: Cachetic male, alert and oriented, no acute distress HEENT: Normocephalic, nontraumatic. Moist mucosa membranes. Neck: Supple, nontender Cardiovascular: Regular tachycardicrate and rhythm, no murmurs Lungs: no distress,mild wheezing left lung. Abdomen: Soft, nontender, nondistended, normal bowel sounds. Extremities: Active range of motion ?4. No edema. Pulses intact ?4. Neurological: No focal neurological deficits. Test Results: EKG sinus rhythm one oh one. First-degree block. No White count twelve. Humulin 12.1. Cr Liver enzymes normal. INR 9.5.Troponin negative. Blood culture ?2 pending. Lactic acid ABG pH 7.38, CO2 forty-four, PO2 seventy- fiveon 6 L of oxygen.Chest x-ray: Left sided infiltrate Emergency Department Course and Treatment: initial blood pressure 94/66 arrival. Pulse ox was 76% on RA. Sepsis protocol initiate due to low blood pressure. IV fluids were given continued on oxygen.chest x-ray noted left sided infiltrate. Blood cultures ?2. Lactic acid is 2.7. aBG stable on 6 L. Cardiac studies are negative. Patient meets community-acquired p 2 g Rocephin IV and Zithromax was Recheck blood pressure 96/50 with a map of 68. Blood pressure borderline, however clinic Initially spoke with hospitalist , checked with nursing staff initially, the bed availability's. Discussed with patient and spouse, and initiated process to transfer to the [facility]. During process and day team arrival, reported there was room for the patient to stay at this hospital. Discussed with patient, who would like to stay here.Awaiting call back from daytime hospitalist. Signout to morning physician to admit. Treatment Plan: [] Disposition: admission Impression: 1. Severe sepsis 2. community-acquired pneumonia 3. hypoxemia This note was generated with [employer] dictation software. It may contain incorrect words, spelling, and punctuation that were not noted in review of the chart prior to signing ED Disposition - Plan for ED Patient: Disposition: Acute Care Hospital [facility] Chief Complaint: Shortness of Breath Diagnosis: Community acquired pneumonia, Severe sepsis, Hypoxemia
[2017-09-18 05:54] LABS: Prothrombin Time (Protime)PT. 55.1 SECONDS (11.7-14.9)
[2017-09-18 06:12] LABS: Basophil# 0.01 X10^3/uL; Basophil% 0.1 % (0-1); Eosinophils% 0.9 % (0-5); Hematocrit 34.8 % (40-54); Lymphocyte % 4.5 % (19-41); Mean Corp Hgb Conc 31.6 g/gl (32-36); Mean Corpuscular Hgb 28.1 pg (27.0-32.0); Mean Platelet Vol. 10.3 fl (6.2-12.0); Monocyte# 0.46 X10^3/uL; Monocyte% 4.1 % (0-10); Neutrophil # 10.04 X10^3/uL (2.7-7.7); Neutrophil % 90.3 % (47-70); Platelet Count 334 K/mm3 (150-450); RBC Distribution Width CV 19.5 % (11.6-14.6); Red Blood Count 3.91 M/mm3 (4.6-6.2); White Blood Count 11.1 K/mm3 (4.4-11.0)
[2017-09-18] MEDS: Levothyroxine 100 MCG Tablet PO (06:20)
[2017-09-18 06:43] LABS: Differential Indicated SCAN CRITERIA MET; POSITIVE COUNT NO; POSITIVE DIFFERENTIAL YES; POSITIVE MORPHOLOGY NO
[2017-09-18 06:57] LABS: International Normalized Ratio 6.1
[2017-09-18 07:03] LABS: Acanthocytes 1+; Differential Comment SCANNED; Hypochromasia 1+; Microcytosis 2+; Ovalocyte 1+; Schistocytes RARE; Target Cells 1+
[2017-09-18 07:04] LABS: Howell-Jolly Body RARE
--- NOTE | 2017-09-18 07:09 | RAD_ITS ---
STUDY: X-RAY CHEST REASON FOR EXAM: Male, 62 years old. Shortness of breath. Pleural effusions. TECHNIQUE: AP and lateral views of the chest. COMPARISON: Comparison is made with prior study dated September 17, 2017. FINDINGS: EKG electrodes are seen. Surgical clips are seen in the right axillary region. Bilateral pleural effusions right greater than left with underlying infiltration and/or atelectasis superimposed on CHF. Since prior study, there has been progression of the bilateral effusions and bibasilar atelectasis. Sternal cerclage wires and vascular clips are present from a prior sternotomy and coronary artery bypass graft procedure (CABG). Normal mediastinum and liza. Normal visualized pulmonary arteries. There is atherosclerotic calcification of the aortic arch with tortuosity. Normal visualized thoracic spine. Normal visualized ribs, clavicles, and shoulders. There is no demonstrated abnormality of the visualized soft tissue structures of the upper abdomen. RAD/Chest PA and Lateral IMPRESSION: Progressive bilateral pleural effusions with underlying infiltration and/or atelectasis superimposed on CHF. Electronically Signed: Daniel Bueno MD at 14:30 EDT Tel [phone], Service support ,
[2017-09-18] MEDS: Ipratropium/Albuterol Sulfate 3 ML AMPUL.NEB INHALATION ×3 (07:26→19:40)
--- NOTE | 2017-09-18 07:37 | CPS ---
rt added oxygen humidity for dryness.
[2017-09-18] MEDS: Amiodarone 200 MG Tablet 100 MG PO (09:27)
[2017-09-18] MEDS: Spironolactone 25 MG Tablet PO (09:27)
[2017-09-18] MEDS: predniSONE 5 MG Tablet PO (09:27)
[2017-09-18] MEDS: Aspirin 81 MG TAB.CHEW PO (09:27)
[2017-09-18] MEDS: Pantoprazole Sodium 20 MG Tablet PO (09:27)
--- NOTE | 2017-09-18 10:29 | PCM.PROGNOTE ---
Patient Problems: Active and Suspected Problems Severe sepsis (Acute) Hypoxemia (Acute) Dysphasia (Acute) Aspiration pneumonia due to food (regurgitated) (Acute) Community acquired pneumonia (Acute) Subjective: The patient was seen and examined at the bedside this morning. Events from the last 24 hours have been reviewed. The patient is currently afebrile, hemodynamically stable and maintaining appropriate oxygen saturations on 2 L/min via nasal cannula. He is awaiting modified barium swallow today. He remains n.p.o. Objective: The patient's most recent lab work, culture data and imaging studies have all been personally reviewed. Blood cultures have shown no growth to date. Strep and urine Legionella antigens were both negative. Urine cultures show no growth to date. - Physical Exam General: Alert, Cooperative, No apparent distress, - - Sitting in bedside recliner. HEENT: Atraumatic, PERRLA, Normocephalic Oral: No Gingival or Mucosal Lesions/ Ulcerations Neck: Supple, No Nodes, Trachea Midline Lungs: No wheeze, No rales, Diminished, Rhonchi Cardiovascular: Regular rate, Regular Rhythm, Normal S1, Normal S2, No murmurs Abdomen: Bowel Sounds Present, Soft, Non Tender Extremities: No clubbing, No cyanosis, No edema Skin: No breakdown Musculoskeletal: Cachexia, Muscle Wasting Lymphatic: No Cervical, Supraclavicular, or Inguinal Adenopathy Neurological: Neuro grossly intact Psych/Mental Status: Normal Affect, Appropriate Vital Signs Temp Pulse Resp BP Pulse Ox 98.1 F 89 16 136/85 H 95 09/18/17 09:30 09/18/17 09:30 09/18/17 09:30 09/18/17 09:30 09/18/17 09:30 Oxygen Flow Rate (L/min) [ 2 AMBULATION with Oxygen] Oxygen Flow Rate (L/min) 2 Oxygen Delivery Method Nasal Cannula Weight: 138 lb 7.205 oz Body Mass Index (BMI) 16.5 Intake and Output for Last 24 Hours 09/16/17 09/17/17 09/18/17 23:59 23:59 23:59 Intake Total 892 / 892 3545 / 3545 120 / 120 Output Total 200 / 200 675 / 675 200 / 200 Balance 692 / 692 2870 / 2870 -80 / -80 Microbiology Past 72 Hours 09/17/17 06:51 Legionella Antigen - Final Urine, Clean Catch Laboratory Tests Past 24 Hrs 09/18/17 09/18/17 05:10 05:10 WBC 11.1 H RBC 3.91 L Hgb 11.0 L Hct 34.8 L MCV 89.0 MCH 28.1 MCHC 31.6 L RDW 19.5 H RDW Differential 63.0 H Plt Count 334 MPV 10.3 Immature Gran % (Auto) 0.100 Neut % (Auto) 90.3 H Lymph % (Auto) 4.5 L Esmeralda % (Auto) 4.1 Eos % (Auto) 0.9 Baso % (Auto) 0.1 Absolute Neuts (auto) 10.0 H Absolute Lymphs (auto) 0.50 L Total Counted Not Reportable Differential Comment SCANNED Hypochromasia 1+ Microcytosis 2+ Target Cells 1+ Ovalocytes 1+ [place] Bodies RARE Acanthocytes (Spur) 1+ Schistocytes RARE PT 55.1 H INR 6.1 H* Clinical Impression(s) from Imaging Studies Chest X-Ray 09/16/17 05:00 IMPRESSION: Patchy left lung infiltrates. Hyperinflation. Electronically Signed: Live Fajardo DO at 6:08 EDT , Service support , Chest X-Ray 09/17/17 06:00 IMPRESSION: Essentially unchanged appearance the chest with multiple findings as described. Electronically Signed: Kristi Leon MD at 11:52 EDT , Service support , Medical Necessity - Tobacco Use Smoking Status: Former smoker Tobacco Use: Non-smoker Assessment/Plan All Active Problems Severe sepsis (Acute) Hypoxemia (Acute) Dysphasia (Acute) Aspiration pneumonia due to food (regurgitated) (Acute) Septic shock (Resolved) Dehydration (Resolved) Subtherapeutic international normalized ratio (INR) (Acute) Elevated troponin (Resolved) Hyperbilirubinemia (Resolved) Hyperkalemia (Resolved) Hyponatremia (Resolved) Acute renal failure (Resolved) Community acquired pneumonia (Acute) CHF (congestive heart failure) (Ruled-out) RECOMMENDATIONS: 1. Patient to remain n.p.o. 2. Continue Unasyn for aspiration coverage. 3. Recommend evaluation by general surgery for PEG tube placement. 4. Continue to hold Coumadin. No indication for acute reversal of the patient's INR. Recommend administering FFP prior to potential PEG tube placement. 5. Modified barium swallow today. IMPRESSIONS: 1. Acute hypoxic respiratory failure secondary to probable aspiration pneumonia Patient reportedly has been seen at [facility] with extensive workup showing aspiration. Patient does report appropriate positioning on the left side to lead to aspiration and radiologic findings. Continue Unasyn and treatment for presumptive aspiration pneumonia. Speech therapy is following with the patient. Plan for modified barium swallow today. Will ask Dr. Sandoval of surgery to evaluate the patient for potential PEG placement. He will likely require FFP administration, given his supratherapeutic INR at the current time. 2. Elevated INR Patient with a reported history of mechanical heart valves. Would not recommend aggressive reversal of INR without heparin drip coverage. Patient is not reporting any bleeding complications at this time. However, INR will likely be prolonged with the addition of IV antibiotics. Recommend checking INR on a daily basis. No evidence of bleeding. Therefore, no acute indication for reversal. Plan to administer FFP prior to potential PEG tube placement. 3. Acute versus chronic kidney disease Improved compared to admission creatinine of 1.19, but given current BMI this appears to be elevated. Patient does get most of his care at an outside facility. Unknown baseline at this time. This may be secondary to chronic kidney disease and not acute prerenal etiology. Avoid nephrotoxic medications. No indication for renal replacement therapy at this time. 4. Severe malnutrition/dysphagia/history of Hodgkin's lymphoma/chronic systolic congestive heart failure/A. fib Complicates care, management, recovery and prognosis. Patient would benefit from initiation of tube feeds. Low clinical suspicion for active congestive heart failure at this time. This note was generated with [employer] dictation software. It may contain incorrect words, spelling, and punctuation that were not noted in checking the note before signing. Code Visit Inpatient E&M: 08631 Subs Hosp L2
--- NOTE | 2017-09-18 12:25 | CASEMGMT ---
Addendum entered by Louis Winston 09/18/17 12:44: Call to Jenny Zhu @ [facility]. They are able to accept pt for enteral TF teaching, care w/anticipated dc date Mon09/20/17. Order placed for RN EVELYN. Original Note: See RN RY Assessment. DC PLAN: Home with Enteral Feedings, Home Health through [facility]. -Plan is for feeding tube placement tomorrow. Pt will need Tube feed supplies and Home Health on discharge. -Spoke with pt re: [facility]/DME choices [facility] with insurance. Pt requested [facility] for DME supplies. -Script for Feeding supplies and tube feed to be completed by physician and signed. Will fax to [facility] when completed. Kymberly BSN RN ACM
--- NOTE | 2017-09-18 12:36 | PCM.PROGNOTE ---
Patient Problems: Active and Suspected Problems Severe sepsis (Acute) Hypoxemia (Acute) Dysphasia (Acute) Aspiration pneumonia due to food (regurgitated) (Acute) Community acquired pneumonia (Acute) Subjective: Pt is feeling overall improved. He is resting comfortably off O2. He has no fevers or chills. His cough is decreasing in frequency. Still some sputum production. No further pink sputum noted. He is anxious to eat. No nausea/vomiting. C/o right nasal congestion. - Physical Exam General: Alert, Oriented x3, Cooperative, - - frail/cachectic HEENT: Atraumatic, PERRLA, EOMI, Normocephalic Neck: Supple, No JVD, Negative Carotid Bruits Lungs: Rales - L>R. Cardiovascular: Regular rate, No murmurs Abdomen: Bowel Sounds Present, Soft, Non Tender Extremities: No edema, Capillary Refill Less than 3 Seconds Skin: No rashes, No breakdown Musculoskeletal: No Tenderness to Palpation of Joints or Extremities Neurological: Cranial nerves II-XII grossly intact Psych/Mental Status: Normal Affect, Appropriate Vital Signs Temp Pulse Resp BP Pulse Ox 98.1 F 83 16 136/85 H 95 09/18/17 09:30 09/18/17 11:03 09/18/17 09:30 09/18/17 09:30 09/18/17 09:30 Oxygen Flow Rate (L/min) [ 2 AMBULATION with Oxygen] Oxygen Flow Rate (L/min) 2 Oxygen Delivery Method Nasal Cannula Weight: 138 lb 7.205 oz Body Mass Index (BMI) 16.5 Intake and Output for Last 24 Hours 09/16/17 09/17/17 09/18/17 23:59 23:59 23:59 Intake Total 892 / 892 3545 / 3545 120 / 120 Output Total 200 / 200 675 / 675 200 / 200 Balance 692 / 692 2870 / 2870 -80 / -80 Microbiology Past 72 Hours 09/17/17 06:51 Legionella Antigen - Final Urine, Clean Catch Laboratory Tests Past 24 Hrs 09/18/17 09/18/17 05:10 05:10 WBC 11.1 H RBC 3.91 L Hgb 11.0 L Hct 34.8 L MCV 89.0 MCH 28.1 MCHC 31.6 L RDW 19.5 H RDW Differential 63.0 H Plt Count 334 MPV 10.3 Immature Gran % (Auto) 0.100 Neut % (Auto) 90.3 H Lymph % (Auto) 4.5 L [place] % (Auto) 4.1 Eos % (Auto) 0.9 Baso % (Auto) 0.1 Absolute Neuts (auto) 10.0 H Absolute Lymphs (auto) 0.50 L Total Counted Not Reportable Differential Comment SCANNED Hypochromasia 1+ Microcytosis 2+ Target Cells 1+ Ovalocytes 1+ Grady-[place] Bodies RARE Acanthocytes (Spur) 1+ Schistocytes RARE PT 55.1 H INR 6.1 H* Medical Necessity - Tobacco Use Smoking Status: Former smoker Tobacco Use: Non-smoker Assessment/Plan All Active Problems Severe sepsis (Acute) Hypoxemia (Acute) Dysphasia (Acute) Aspiration pneumonia due to food (regurgitated) (Acute) Septic shock (Resolved) Dehydration (Resolved) Subtherapeutic international normalized ratio (INR) (Acute) Elevated troponin (Resolved) Hyperbilirubinemia (Resolved) Hyperkalemia (Resolved) Hyponatremia (Resolved) Acute renal failure (Resolved) Community acquired pneumonia (Acute) CHF (congestive heart failure) (Ruled-out) 1. Acute severe sepsis 2/2 Acute left sided pna CAP vs. aspiration - continue unasyn, speech therapy, IS/PEP, aerosols. Needs peg placement. Dr. Sandoval consulted. Going for modified barium swallow. Leukocytosis improving. Afebrile. 2. Acute hypoxic respiratory failure 2/2 above - Continue care as above. Does not use home O2, but has in the past. -O2 demand has improved significantly since admission. -still using o2 overnight. 2. Esophageal dysmotility with dysphagia - speech therapy eval. was not doing anything at home with regards to dietary modification. As above, Jaime c/s. 3. Severe protein calorie malnutrition - consult football scout. 4. Hx AF - in NSR - hold coumadin for elevated inr. Continue amiodarone. Defer vitK for now. 5. Hx Bronchiectasis per old CT. 6. Hx CHF, diastolic - EF 50%. He does not appear volume overloaded. Hold lasix with borderline pressures. 7. Mild normocytic anemia - stable 8. Hypothyroidism - synthroid 9. GERD - ppi. 10. Hx bioprosthetic MV, AV replacement. 11. Hx Hodgkins in remission s/p radiation therapy. DVT ppx: Heparin DC planning: PTOT. This patient was seen by Lobo Dean PA-C under the supervision of Doctor Hutton.
--- NOTE | 2017-09-18 12:41 | PN_ITS ---
Patient Problems: Active and Suspected Problems Severe sepsis (Acute) Hypoxemia (Acute) Dysphasia (Acute) Aspiration pneumonia due to food (regurgitated) (Acute) Community acquired pneumonia (Acute) Subjective: Pt is feeling overall improved. He is resting comfortably off O2. He has no fevers or chills. His cough is decreasing in frequency. Still some sputum production. No further pink sputum noted. He is anxious to eat. No nausea/ vomiting. C/o right nasal congestion. - Physical Exam General: Alert, Oriented x3, Cooperative, - - frail/cachectic HEENT: Atraumatic, PERRLA, EOMI, Normocephalic Neck: Supple, No JVD, Negative Carotid Bruits Lungs: Rales - L>R. Cardiovascular: Regular rate, No murmurs Abdomen: Bowel Sounds Present, Soft, Non Tender Extremities: No edema, Capillary Refill Less than 3 Seconds Skin: No rashes, No breakdown Musculoskeletal: No Tenderness to Palpation of Joints or Extremities Neurological: Cranial nerves II-XII grossly intact Psych/Mental Status: Normal Affect, Appropriate Vital Signs Temp Pulse Resp BP Pulse Ox 98.1 F 83 16 136/85 H 95 09/18/17 09:30 09/18/17 11:03 09/18/17 09:30 09/18/17 09:30 09/18/17 09:30 Oxygen Flow Rate (L/min) [ 2 AMBULATION with Oxygen] Oxygen Flow Rate (L/min) 2 Oxygen Delivery Method Nasal Cannula Weight: 138 lb 7.205 oz Body Mass Index (BMI) 16.5 Intake and Output for Last 24 Hours 09/16/17 09/17/17 09/18/17 23:59 23:59 23:59 Intake Total 892 / 892 3545 / 3545 120 / 120 Output Total 200 / 200 675 / 675 200 / 200 Balance 692 / 692 2870 / 2870 -80 / -80 Microbiology Past 72 Hours 09/17/17 06:51 Legionella Antigen - Final Urine, Clean Catch Laboratory Tests Past 24 Hrs 09/18/17 09/18/17 05:10 05:10 WBC 11.1 H RBC 3.91 L Hgb 11.0 L Hct 34.8 L MCV 89.0 MCH 28.1 MCHC 31.6 L RDW 19.5 H RDW Differential 63.0 H Plt Count 334 MPV 10.3 Immature Gran % (Auto) 0.100 Neut % (Auto) 90.3 H Lymph % (Auto) 4.5 L [place] % (Auto) 4.1 Eos % (Auto) 0.9 Baso % (Auto) 0.1 Absolute Neuts (auto) 10.0 H Absolute Lymphs (auto) 0.50 L Total Counted Not Reportable Differential Comment SCANNED Hypochromasia 1+ Microcytosis 2+ Target Cells 1+ Ovalocytes 1+ Grady-[place] Bodies RARE Acanthocytes (Spur) 1+ Schistocytes RARE PT 55.1 H INR 6.1 H* Medical Necessity - Tobacco Use Smoking Status: Former smoker Tobacco Use: Non-smoker Assessment/Plan All Active Problems Severe sepsis (Acute) Hypoxemia (Acute) Dysphasia (Acute) Aspiration pneumonia due to food (regurgitated) (Acute) Septic shock (Resolved) Dehydration (Resolved) Subtherapeutic international normalized ratio (INR) (Acute) Elevated troponin (Resolved) Hyperbilirubinemia (Resolved) Hyperkalemia (Resolved) Hyponatremia (Resolved) Acute renal failure (Resolved) Community acquired pneumonia (Acute) CHF (congestive heart failure) (Ruled-out) 1. Acute severe sepsis 2/2 Acute left sided pna CAP vs. aspiration - continue unasyn, speech therapy, IS/PEP, aerosols. Needs peg placement. Dr. Sandoval consulted. Going for modified barium swallow. Leukocytosis improving. Afebrile. 2. Acute hypoxic respiratory failure 2/2 above - Continue care as above. Does not use home O2, but has in the past. -O2 demand has improved significantly since admission. -still using o2 overnight. 2. Esophageal dysmotility with dysphagia - speech therapy eval. was not doing anything at home with regards to dietary modification. As above, Jaime c/s. 3. Severe protein calorie malnutrition - consult manager ccu. 4. Hx AF - in NSR - hold coumadin for elevated inr. Continue amiodarone. Defer vitK for now. 5. Hx Bronchiectasis per old CT. 6. Hx CHF, diastolic - EF 50%. He does not appear volume overloaded. Hold lasix with borderline pressures. 7. Mild normocytic anemia - stable 8. Hypothyroidism - synthroid 9. GERD - ppi. 10. Hx bioprosthetic MV, AV replacement. 11. Hx Hodgkins in remission s/p radiation therapy. DVT ppx: Heparin DC planning: PTOT. This patient was seen by Lobo Dean PA-C under the supervision of Doctor Hutton.
--- NOTE | 2017-09-18 13:30 | SP.MBSS_ITS ---
PRIMARY / SECONDARY DIAGNOSIS: dysphagia (R13.2; R13.14) REFERRING PHYSICIAN: Dr. Albert Hutton MD CURRENT DIET: NPO DENTITION: WFL MENTAL STATUS: appropriate for participation RESPIRATORY STATUS: O2 via room air PREVIOUS MODIFIED BARIUM SWALLOW STUDY: MBS competed at [facility]: results unavailable at time of study, Patient reporting extensive deficits, no diet texture adjustments or compensatory strategies recalled by the Patient. REASON FOR REFERRAL: Patient is a 62 year old male referred for a modified barium swallow (MBS) study to objectively assess the Patients oropharyngeal swallow function under fluoroscopy secondary to reported persistent PO diet texture intolerance resulting in current admission for suspected aspiration related pneumonia attributed to esophageal dysmotility status post esophageal dilatation (x2) and resulting severe malnutrition following radiation intervention due to Hodgkin's disease (1986). Patient details a long history of dysphagia with multiple assessments under fluoroscopy via MBS (x1) and esophagram / upper GI series (at least once), as well as FEES; multiple dilatations (x2) with what sounds like aperistalsis vs. megaesophagus status post dilatation upon description from Patient; intolerance appearing to increase over the last few weeks, with the Patient reporting intermittent coughing with both solids and liquids. Patient initially planned to undergo percutaneous endoscopic gastrostomy (PEG) tube placement in September, though may proceed during current admission. ADDITIONAL OBJECTIVE ASSESSMENT RESULTS: 09/18/2017 CXR revealed 09/17/2017 CXR revealed patchy left-sided airspace consolidation; diffuse increase in attenuation of the left hemithorax compared to the right, unchanged since the previous study; increased attenuation of the right lung base similar to previous study that may represent airspace disease; bilateral pleural effusions; borderline cardiomegaly. 09/16/2017 CXR revealed patchy left lung infiltrates; hyperinflation. MEDICAL HISTORY: Hodgkin's disease in remission (1986) status post radiation intervention resulting in esophageal dysmotility status post esophageal dilatation (x2) and resulting severe malnutrition, bronchiectasis, chronic obstructive pulmonary disease, congestive heart failure STUDY FINDINGS: Patient participated in a Modified Barium Swallow (MBS) study on 09/18/2017. Dr. Bueno was the radiologist present for this evaluation. This study was recorded in the lateral view and images were sent to PACs for storage. The following consistencies were presented to this patient for analysis of oropharyngeal swallow function: thin liquids; remainder or protocol held due to concerns for safety. Results of the MBS are as follows: PENETRATION / ASPIRATION SCALE (PIERRE): 1 = does not enter airway 2 = enters airway/above vocal folds/ejected 3 = enters airway/above vocal folds/not ejected 4 = enters airway/contacts vocal folds/ejected 5 = enters airway/contacts vocal folds/not ejected 6 = enters airway/below vocal folds/ejected 7 = enters airway/below vocal folds/not ejected despite effort 8 = enters airway/below vocal folds/no effort PENETRATION / ASPIRATION SCALE (SCORE): Thin liquid - 5 mL tsp.: 1* Thin liquids via cup (single sip): 1* Thin liquids via cup (single sip): 1* * denotes no appreciated functional swallow response, with all contrast channeling from the valleculae laterally down through the pyriforms and into the esophagus where the upper esophageal sphincter was completely relaxed. Would clearly exhibit gross aspiration with any increase in volume; strong concern for asphyxiation with solids. IMPRESSION: DIAGNOSIS: profound oropharyngeal and pharyngoesophageal phase dysphagia ( R13.12, R13.14) ORAL PHASE CHARACTERIZED BY: LABIAL SEAL: no labial escape TONGUE CONTROL DURING BOLUS MANIPULATION: posterior escape of greater than half of bolus BOLUS TRANSPORT / LINGUAL MOTION: slowed tongue motion ORAL RESIDUE: residue collection on oral structures PHARYNGEAL PHASE CHARACTERIZED BY: INITIATION OF PHARYNGEAL SWALLOW: no visible initiation at any location SOFT PALATE ELEVATION: trace column of contrast/air between soft palate and pharyngeal wall LARYNGEAL ELEVATION: minimal to partial superior movement of thyroid cartilage/ minimal approximation of arytenoids cartilage to epiglottic petiole ANTERIOR HYOID EXCURSION: no anterior movement EPIGLOTTIC MOVEMENT: no epiglottic inversion LARYNGEAL VESTIBULE CLOSURE AT HEIGHT OF SWALLOW: no laryngeal vestibule closure with wide column of air/contrast in laryngeal vestibule PHARYNGEAL STRIPPING WAVE: pharyngeal stripping wave absent PHARYNGOESOPHAGEAL SEGMENT OPENING: complete distension throughout the assessment, with brief contraction during the swallow TONGUE BASE RETRACTION: no visible posterior motion of tongue base PHARYNGEAL RESIDUE: minimal to no pharyngeal clearance ESOPHAGEAL PHASE CHARACTERIZED BY: ESOPHAGEAL BOLUS CLEARANCE IN THE UPRIGHT POSITION: no esophageal contraction DIET TEXTURE RECOMMENDATIONS: Recommend strict NPO with considerations for alternative means of nutrition. INTERPRETATION OF RESULTS: Patient presents with profound oropharyngeal dysphagia (R13.12) and pharyngoesophageal dysphagia (R13.14) secondary to prior Hodgkin's disease status post radiation intervention (1986) resulting in esophageal dysmotility status post esophageal dilatation (x2) and resulting severe malnutrition, bronchiectasis, chronic obstructive pulmonary disease. Patiens swallow function impaired globally, most notably within the pharyngeal phase, with absent pharyngeal swallow (Patient reporting on multiple occasions that he swallowed, with no significant movement appreciated or any effect on bolus motility); inability to effect closure of the airway during deglutition with the laryngeal vestibule completely exposed while the bolus gradually moved through the pharynx ; and profound pharyngeal dysmotility, with no pharyngeal constriction noted, all bolus movement attributed to gravity vs. pharyngeal constrictor action. Very wide diameter within the pharyngeal arena, with clear musculature atrophy. Results indicate not only a high risk for aspiration, but also an extremely high risk for asphyxiation with more solid textures, with trials of more viscous textures held due to concerns for safety. RECOMMENDATIONS: It is unlikely that the Patient will achieve improvements necessary to clinically return to a PO diet without either non-compliance or alterations in care to include quality vs. quantity of life approach. However, would recommend a repeat modified barium swallow study status post PEG tube placement if the Patient is able to stabilize and increase weight / strength, with possible improvements in swallow function, though this would be considered unlikely. Would consider implementation of the [place] Free Water Protocol (FFWP) following Patient and family education if deemed clinically appropriate. Patient may benefit from continued skilled speech-language intervention targeting training and implementation of recommended oropharyngeal strengthening exercises to facilitate improved oropharyngeal strength and coordination; training, implementation, and Patient education regarding implementation of the FFWP. ADDITIONAL COMMENTS/RECOMMENDATIONS: Results and recommendations were discussed with the Patient immediately following MBS completion, with the Patient verbalizing understanding and agreement with all recommendations and education provided. IMAGE COUNT: [id number] Tristan Cisse M.A., CCC-SWAT TEAM MEMBER [facility] Speech-Language Pathology Department [email or web address]
--- NOTE | 2017-09-18 13:30 | RAD_ITS ---
STUDY: SWALLOWING STUDY REASON FOR EXAM: Male, 62 years old. Dysphagia. TECHNIQUE: The examination was performed with Speech Pathology in attendance. Under fluoroscopic observation, the patient ingested thin barium, thick barium, barium pudding, and barium coated cracker. FLUOROSCOPY TIME: 2:06 minutes/seconds. Possible aspiration. RADIOLOGIST INVOLVEMENT: Radiologist was present and providing direct supervision. COMPARISON: None. FINDINGS: The following was observed during swallowing of the various mixtures of barium: Severe impairment of the swallowing mechanism. Thin Barium: There was no evidence of aspiration or laryngeal penetration. Large amount of residual is seen in the vallecula and piriform sinuses. RAD/Swallowing Function w/Video IMPRESSION: Limited examination. Marked impairment of the swallowing mechanism. Large amount of residual is seen in the vallecula as well as piriform sinus. The swallow study findings were discussed with the patient by the speech pathologist at the conclusion of the examination. Please see speech pathology report for more information and recommendations. Electronically Signed: Daniel Bueno MD at 14:16 EDT Tel [phone], Service support ,
--- NOTE | 2017-09-18 14:28 | CASEMGMT ---
RN CM Note: Tube feed order script completed by Dr. Sandoval. Discussed continuous vs bolus. Per Dr. Sandoval, would like continuous 24/day tube feed first week or two. Script Faxed to [facility]. Genie @ [facility] said they will order the tube feed for delivery. Anticipated Dc Date Mon09/20/17. Pt updated that [facility] will provide DME/Tube feeds and [facility] will provide mcfp. Kymberly CEEN RN ACM
--- NOTE | 2017-09-18 15:08 | CASEMGMT ---
Addendum entered by Louis Winston 09/18/17 15:38: [facility] cannot staff pt until next week. Referral declined. Referral called and faxed to Yazmin @ [facility] Phone: Fax: Original Note: RN RY NOTE. Received call from [facility] that they cannot staff pt on dc due to distance. Call to Corrie @ [facility] . Referral faxed to . It will need to be reviewed and approved prior to accepting pt. Kymberly BSN YOLANDA ACM
--- NOTE | 2017-09-18 17:32 | PCM.CONS.GEN ---
Reason for Consult Date of Consultation: 09/18/17 History of Present Illness: The patient is a 62 year old M with weight loss, dysphagia and failed a cookie swallowing test. He was admitted on September 16 with a diagnosis of likely aspiration pneumonia and early sepsis. The patient is currently being treated with antibiotics.-Unisyn. The patient has a long-standing relatively complex history. He was treated for Hodgkin's lymphoma including radiation to the chest. the patient has had progressive issues with dysphagia for some time. He was referred to and was seen by Dr. Live Licea GI/[facility]. Dr. Licea noted on his last office note: ~Sin was last seen by me in the office on March 10. ~At that time, the impression was dysphagia. ~His last EGD did ~not show a stenosis and on further evaluation, he had on May 10 a barium swallow from Speech Pathology showing oral phase ~dysphagia and pharyngeal dysphagia. ~The patient was also seen by Dr. Bryant in swallowing and this showed low LES pressure failed ~peristalsis and all swallows with absence of contractility. ~He has ~weakness in all muscles. ~There is no motor function in both the ~proximal and distal esophagus indicating a myopathy. 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 ~The patient did have an EMG, May 24, 2017, and on May, the patient was notified by Neurology and told that there is ~clearly a myopathic process. 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 ~Consider feeding tube placement Dr. Licea planned to perform EGD with PEG tube placement. The patient states he wanted to try oral feeding to maintain his weight for the last 2 months, but is failing. He states his maximum weight in the past was around 175, 280 pounds. He is now in the 125 to 1:30 range he feels. the patient has a history of valvular heart disease secondary to he understands his radiation. he underwent aortic and mitral valve replacement [facility] December,. he had staging laparotomy with splenectomy for his Hodgkin's lymphoma in 1986. He has undergone previous upper and lower endoscopies. He has had esophageal dilation in the past. He is taking Coumadin. His INR level has been increasing felt to be secondary to his antibiotic use. His INR today is 6.1. I am being consulted for PEG tube placement. Past Medical History Past Medical History (Chronic Problems): Chronic Problems CHF (congestive heart failure) (Chronic) Hypothyroidism (Chronic) Chronic anticoagulation (Chronic) Status post mitral valve replacement (Chronic) Status post aortic valve replacement (Chronic) Normochromic normocytic anemia (Chronic) Bilateral pleural effusion (Chronic) Atrial fibrillation (Chronic) Pleural effusion (Chronic) Hodgkin's disease in remission (Chronic) Mitral valve regurgitation (Chronic) Aortic valve regurgitation (Chronic) Allergies meloxicam Adverse Reaction (Verified 09/16/17 04:11) Nausea naproxen [From Naprosyn] Adverse Reaction (Verified 09/16/17 04:11) Nausea Home Medications: Ambulatory Orders Medication Instructions Recorded Aspirin [Aspirin, Baby] 81 mg PO DAILY@0800 01/23/16 Furosemide [Lasix] 20 mg PO QODAY 01/23/16 Levothyroxine [Synthroid] 100 mcg PO DAILY 01/23/16 Amiodarone HCl [Pacerone] 100 mg PO DAILY 01/01/17 Omeprazole 20 mg PO DAILY 01/01/17 Prednisone 5 mg PO DAILY 01/01/17 Spironolactone [Aldactone] 25 mg PO QODAY 09/16/17 Warfarin [Coumadin] 1 mg PO DAILY@1700 09/16/17 Surgical History: arthroscopy, knee, - - splenectomy for Hodgkin's disease, fracture rt arm, repair of right foot drop, exploratory laparotomy of chest and abdomen for Hodgkin's disease, s/p nasal surgery, bioprosthetic AVR and MVR at [facility] Psychiatric History: No pertinent psych hx Lives: Spouse/ Significant Other Smoking Status: Former smoker Tobacco Use: Non-smoker Alcohol: None Drugs: None - *Family History Maternal History Items: Cancer - colon cancer Review of Systems Constitutional: Reports: Anorexia, Weight Change. Denies: Chills, Fever HEENT: Reports: Difficulty Swallowing. Denies: Head Aches, Sinus Congestion, Sinus Drainage Cardiovascular: Denies: Chest Pain, Palpitations Respiratory: Reports: Shortness of Breath. Denies: Cough, Shortness of breath at rest, Sputum production Gastrointestinal: Denies: Abdominal Pain, Nausea, Vomiting Genitourinary: Denies: Dysuria Musculoskeletal: Denies: Joint Pain, Joint Tenderness Skin: Denies: Rash, Wounds Neurological: Denies: Numbness, Tingling, Focal weakness Psychiatric: Denies: Anxiety, Depression, Homicidal Ideations, Suicidal Ideations Hematologic/ Lymphatic: Denies: Easy Bruising, Easy Bleeding Patient Problems: Active and Suspected Problems Severe sepsis (Acute) Hypoxemia (Acute) Dysphasia (Acute) Aspiration pneumonia due to food (regurgitated) (Acute) Community acquired pneumonia (Acute) - Physical Exam General: Alert, Oriented x3, - - protein malnourished, well hydrated Lungs: Clear to auscultation, Diminished Cardiovascular: Regular rate, Regular Rhythm Abdomen: Bowel Sounds Present, Soft, - - well-healed midline incision Vital Signs Temp Pulse Resp BP Pulse Ox 98.0 F 88 18 141/86 H 93 09/18/17 15:30 09/18/17 15:30 09/18/17 15:30 09/18/17 15:30 09/18/17 15:30 Oxygen Flow Rate (L/min) [ 2 AMBULATION with Oxygen] Oxygen Flow Rate (L/min) 2 Oxygen Delivery Method Nasal Cannula Weight: 62.8 kg Body Mass Index (BMI) 16.5 Intake and Output for Last 24 Hours 09/16/17 09/17/17 09/18/17 23:59 23:59 23:59 Intake Total 892 / 892 3545 / 3545 1380 / 1380 Output Total 200 / 200 675 / 675 450 / 450 Balance 692 / 692 2870 / 2870 930 / 930 Microbiology Past 72 Hours 09/17/17 06:51 Legionella Antigen - Final Urine, Clean Catch Laboratory Tests Past 24 Hrs 09/18/17 09/18/17 09/18/17 05:10 05:10 12:50 WBC 11.1 H RBC 3.91 L Hgb 11.0 L Hct 34.8 L MCV 89.0 MCH 28.1 MCHC 31.6 L RDW 19.5 H RDW Differential 63.0 H Plt Count 334 MPV 10.3 Immature Gran % (Auto) 0.100 Neut % (Auto) 90.3 H Lymph % (Auto) 4.5 L [place] % (Auto) 4.1 Eos % (Auto) 0.9 Baso % (Auto) 0.1 Absolute Neuts (auto) 10.0 H Absolute Lymphs (auto) 0.50 L Total Counted Not Reportable Differential Comment SCANNED Hypochromasia 1+ Microcytosis 2+ Target Cells 1+ Ovalocytes 1+ [place] Bodies RARE Acanthocytes (Spur) 1+ Schistocytes RARE PT 55.1 H INR 6.1 H* Blood Type O POSITIVE Antibody Screen NEGATIVE Assessment/Plan All Active Problems Severe sepsis (Acute) Hypoxemia (Acute) Dysphasia (Acute) Aspiration pneumonia due to food (regurgitated) (Acute) Septic shock (Resolved) Dehydration (Resolved) Subtherapeutic international normalized ratio (INR) (Acute) Elevated troponin (Resolved) Hyperbilirubinemia (Resolved) Hyperkalemia (Resolved) Hyponatremia (Resolved) Acute renal failure (Resolved) Community acquired pneumonia (Acute) CHF (congestive heart failure) (Ruled-out) esophageal motility disorder, aspiration, aspiration pneumonia, warfarin toxicity, need for feeding access I plan to perform an EGD with PEG tube placement tomorrow. The patient understands the risks, benefits, possible complications, including risk of bleeding, and agrees to the procedure.. We will make him nothing by mouth for the procedure tomorrow. He is currently on Unasyn for his pneumonia. This will be appropriate robotic coverage for his PEG tube. Since he will require repeat anticoagulation due to his replaced aortic and mitral valves, I have asked that we just give 2 units of FFP at a proximally 10:30 with planned for procedure at noon
--- NOTE | 2017-09-18 17:40 | CON.PCM_ITS ---
Reason for Consult Date of Consultation: 09/18/17 History of Present Illness: The patient is a 62 year old M with weight loss, dysphagia and failed a cookie swallowing test. He was admitted on September 16 with a diagnosis of likely aspiration pneumonia and early sepsis. The patient is currently being treated with antibiotics.-Unisyn. The patient has a long-standing relatively complex history. He was treated for Hodgkin's lymphoma including radiation to the chest. the patient has had progressive issues with dysphagia for some time. He was referred to and was seen by Dr. Live Licea GI/[facility]. Dr. Licea noted on his last office note: ~Sin was last seen by me in the office on March 10. ~At that time, the impression was dysphagia. ~His last EGD did ~not show a stenosis and on further evaluation, he had on May 10 a barium swallow from Speech Pathology showing oral phase ~dysphagia and pharyngeal dysphagia. ~The patient was also seen by Dr. Bryant in swallowing and this showed low LES pressure failed ~peristalsis and all swallows with absence of contractility. ~He has ~ weakness in all muscles. ~There is no motor function in both the ~proximal and distal esophagus indicating a myopathy. 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 ~The patient did have an EMG, May, and on May, the patient was notified by Neurology and told that there is ~clearly a myopathic process. 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 ~Consider feeding tube placement Dr. Licea planned to perform EGD with PEG tube placement. The patient states he wanted to try oral feeding to maintain his weight for the last 2 months, but is failing. He states his maximum weight in the past was around 175, 280 pounds. He is now in the 125 to 1:30 range he feels. the patient has a history of valvular heart disease secondary to he understands his radiation. he underwent aortic and mitral valve replacement [facility] December,. he had staging laparotomy with splenectomy for his Hodgkin's lymphoma in 1986. He has undergone previous upper and lower endoscopies. He has had esophageal dilation in the past. He is taking Coumadin. His INR level has been increasing felt to be secondary to his antibiotic use. His INR today is 6.1. I am being consulted for PEG tube placement. Past Medical History Past Medical History (Chronic Problems): Chronic Problems CHF (congestive heart failure) (Chronic) Hypothyroidism (Chronic) Chronic anticoagulation (Chronic) Status post mitral valve replacement (Chronic) Status post aortic valve replacement (Chronic) Normochromic normocytic anemia (Chronic) Bilateral pleural effusion (Chronic) Atrial fibrillation (Chronic) Pleural effusion (Chronic) Hodgkin's disease in remission (Chronic) Mitral valve regurgitation (Chronic) Aortic valve regurgitation (Chronic) Allergies meloxicam Adverse Reaction (Verified 09/16/17 04:11) Nausea naproxen [From Naprosyn] Adverse Reaction (Verified 09/16/17 04:11) Nausea Home Medications: Ambulatory Orders Medication Instructions Recorded Aspirin [Aspirin, Baby] 81 mg PO DAILY@0800 01/23/16 Furosemide [Lasix] 20 mg PO QODAY 01/23/16 Levothyroxine [Synthroid] 100 mcg PO DAILY 01/23/16 Amiodarone HCl [Pacerone] 100 mg PO DAILY 01/01/17 Omeprazole 20 mg PO DAILY 01/01/17 Prednisone 5 mg PO DAILY 01/01/17 Spironolactone [Aldactone] 25 mg PO QODAY 09/16/17 Warfarin [Coumadin] 1 mg PO DAILY@1700 09/16/17 Surgical History: arthroscopy, knee, - - splenectomy for Hodgkin's disease, fracture rt arm, repair of right foot drop, exploratory laparotomy of chest and abdomen for Hodgkin's disease, s/p nasal surgery, bioprosthetic AVR and MVR at [facility] Psychiatric History: No pertinent psych hx Lives: Spouse/ Significant Other Smoking Status: Former smoker Tobacco Use: Non-smoker Alcohol: None Drugs: None - *Family History Maternal History Items: Cancer - colon cancer Review of Systems Constitutional: Reports: Anorexia, Weight Change. Denies: Chills, Fever HEENT: Reports: Difficulty Swallowing. Denies: Head Aches, Sinus Congestion, Sinus Drainage Cardiovascular: Denies: Chest Pain, Palpitations Respiratory: Reports: Shortness of Breath. Denies: Cough, Shortness of breath at rest, Sputum production Gastrointestinal: Denies: Abdominal Pain, Nausea, Vomiting Genitourinary: Denies: Dysuria Musculoskeletal: Denies: Joint Pain, Joint Tenderness Skin: Denies: Rash, Wounds Neurological: Denies: Numbness, Tingling, Focal weakness Psychiatric: Denies: Anxiety, Depression, Homicidal Ideations, Suicidal Ideations Hematologic/ Lymphatic: Denies: Easy Bruising, Easy Bleeding Patient Problems: Active and Suspected Problems Severe sepsis (Acute) Hypoxemia (Acute) Dysphasia (Acute) Aspiration pneumonia due to food (regurgitated) (Acute) Community acquired pneumonia (Acute) - Physical Exam General: Alert, Oriented x3, - - protein malnourished, well hydrated Lungs: Clear to auscultation, Diminished Cardiovascular: Regular rate, Regular Rhythm Abdomen: Bowel Sounds Present, Soft, - - well-healed midline incision Vital Signs Temp Pulse Resp BP Pulse Ox 98.0 F 88 18 141/86 H 93 09/18/17 15:30 09/18/17 15:30 09/18/17 15:30 09/18/17 15:30 09/18/17 15:30 Oxygen Flow Rate (L/min) [ 2 AMBULATION with Oxygen] Oxygen Flow Rate (L/min) 2 Oxygen Delivery Method Nasal Cannula Weight: 62.8 kg Body Mass Index (BMI) 16.5 Intake and Output for Last 24 Hours 09/16/17 09/17/17 09/18/17 23:59 23:59 23:59 Intake Total 892 / 892 3545 / 3545 1380 / 1380 Output Total 200 / 200 675 / 675 450 / 450 Balance 692 / 692 2870 / 2870 930 / 930 Microbiology Past 72 Hours 09/17/17 06:51 Legionella Antigen - Final Urine, Clean Catch Laboratory Tests Past 24 Hrs 09/18/17 09/18/17 09/18/17 05:10 05:10 12:50 WBC 11.1 H RBC 3.91 L Hgb 11.0 L Hct 34.8 L MCV 89.0 MCH 28.1 MCHC 31.6 L RDW 19.5 H RDW Differential 63.0 H Plt Count 334 MPV 10.3 Immature Gran % (Auto) 0.100 Neut % (Auto) 90.3 H Lymph % (Auto) 4.[address] [place] % (Auto) 4.1 Eos % (Auto) 0.9 Baso % (Auto) 0.1 Absolute Neuts (auto) 10.0 H Absolute Lymphs (auto) 0.50 L Total Counted Not Reportable Differential Comment SCANNED Hypochromasia 1+ Microcytosis 2+ Target Cells 1+ Ovalocytes 1+ [place] Bodies RARE Acanthocytes (Spur) 1+ Schistocytes RARE PT 55.1 H INR 6.1 H* Blood Type O POSITIVE Antibody Screen NEGATIVE Assessment/Plan All Active Problems Severe sepsis (Acute) Hypoxemia (Acute) Dysphasia (Acute) Aspiration pneumonia due to food (regurgitated) (Acute) Septic shock (Resolved) Dehydration (Resolved) Subtherapeutic international normalized ratio (INR) (Acute) Elevated troponin (Resolved) Hyperbilirubinemia (Resolved) Hyperkalemia (Resolved) Hyponatremia (Resolved) Acute renal failure (Resolved) Community acquired pneumonia (Acute) CHF (congestive heart failure) (Ruled-out) esophageal motility disorder, aspiration, aspiration pneumonia, warfarin toxicity, need for feeding access I plan to perform an EGD with PEG tube placement tomorrow. The patient understands the risks, benefits, possible complications, including risk of bleeding, and agrees to the procedure.. We will make him nothing by mouth for the procedure tomorrow. He is currently on Unasyn for his pneumonia. This will be appropriate robotic coverage for his PEG tube. Since he will require repeat anticoagulation due to his replaced aortic and mitral valves, I have asked that we just give 2 units of FFP at a proximally 10:30 with planned for procedure at noon
[2017-09-18] MEDS: Sodium Chloride 0.65% 1 SPRAY SPRAY.BTL 2 SPRAY NASAL (21:32)
[2017-09-19] VITALS (29 sets, daily range): BP systolic 118–160; BP diastolic 63–95; PULSE 81–91; RESP 16–21; TEMP 36.4–37.1; O2SAT 89–96; BMI 17.3
[2017-09-19] MEDS: Ipratropium/Albuterol Sulfate 3 ML AMPUL.NEB INHALATION ×3 (01:19→19:36)
[2017-09-19] MEDS: 0.9% NaCl Peripheral Flush Adult/Peds IV (05:59)
[2017-09-19 06:19] LABS: Prothrombin Time (Protime)PT. 55.3 SECONDS (11.7-14.9)
[2017-09-19 06:27] LABS: International Normalized Ratio 6.2
[2017-09-19 06:37] LABS: Anion Gap 10 (5-15); BUN 22 mg/dL (7-18); BUN/Creat Ratio 30.4 RATIO (10-20); Calcium,Total 8.9 mg/dL (8.5-10.1); Chloride 107 mmol/L (98-107); Creatinine, Serum 0.72 mg/dL (0.70-1.30); EST Glomerular Filtration Rate 117 mL/min (>60); Est Glom Filt Rate - Afr Amer 142 mL/min (>60); Estimated Creatinine Clearance 95.32 ml/min; Glucose 70 mg/dL (74-106); Potassium 4.5 mmol/L (3.5-5.1); Sodium Level 142 mmol/L (136-145)
[2017-09-19 06:39] LABS: Absolute Lymphocyte Count 0.57 X10^3/ul (0.83-4.51); Absolute Neutrophil Count 9.9 X10^3/uL (2.0-7.7); Basophil# 0.02 X10^3/uL; Basophil% 0.2 % (0-1); Differential Indicated SCAN CRITERIA MET; Eosinophil# 0.02 X10^3/uL; Eosinophils% 0.2 % (0-5); Hematocrit 35.7 % (40-54); Hemoglobin 11.5 g/dl (13.0-16.5); Lymphocyte # 0.57 X10^3/ul (4.0); Lymphocyte % 5.2 % (19-41); Mean Corp Hgb Conc 32.2 g/gl (32-36); Mean Corpuscular Hgb 28.7 pg (27.0-32.0); Monocyte# 0.46 X10^3/uL; Monocyte% 4.2 % (0-10); Neutrophil # 9.85 X10^3/uL (2.7-7.7); Neutrophil % 90.1 % (47-70); POSITIVE COUNT NO; POSITIVE DIFFERENTIAL YES; POSITIVE MORPHOLOGY NO; Platelet Count 338 K/mm3 (150-450); RBC Distribution Width CV 19.8 % (11.6-14.6); RBC Distribution Width SD 63.5 fl (35.1-43.9); Red Blood Count 4.01 M/mm3 (4.6-6.2); White Blood Count 10.9 K/mm3 (4.4-11.0)
[2017-09-19 06:51] LABS: Anisocytosis 2+; Differential Comment SCANNED; Macrocytosis 1+; Target Cells 2+
[2017-09-19] MEDS: Sodium Chloride 0.65% 1 SPRAY SPRAY.BTL 2 SPRAY NASAL ×2 (08:29→21:30)
--- NOTE | 2017-09-19 10:20 | PCM.PROGNOTE ---
Patient Problems: Active and Suspected Problems Severe sepsis (Acute) Hypoxemia (Acute) Dysphasia (Acute) Aspiration pneumonia due to food (regurgitated) (Acute) Community acquired pneumonia (Acute) Subjective: The patient was seen and examined at the bedside this morning. Events from the last 24 hours have been reviewed. The patient is currently afebrile, hemodynamically stable and maintaining appropriate oxygen saturations on 3 L/min via nasal cannula. The patient swallowing study was completed yesterday and did reveal marked impairment of the swallowing mechanism. He is currently scheduled to undergo PEG tube placement today. FFP is being prepared to be hung, as the patient's INR is still elevated at 6.2 this morning. Objective: The patient's most recent lab work, culture data and imaging studies have all been personally reviewed. Blood cultures have shown no growth to date. Strep and urine Legionella antigens were both negative. Urine cultures show no growth to date. - Physical Exam General: Alert, Cooperative, No apparent distress, - - Sitting in bedside recliner. HEENT: Atraumatic, PERRLA, Normocephalic Oral: No Gingival or Mucosal Lesions/ Ulcerations, Dry Mucosa Neck: Supple, No Nodes, Trachea Midline Lungs: No rhonchi, No wheeze, No rales, Diminished Cardiovascular: Regular rate, Regular Rhythm, Normal S1, Normal S2, No murmurs Abdomen: Bowel Sounds Present, Soft, Non Tender, Non-Distended Extremities: No clubbing, No cyanosis, No edema Skin: No breakdown Musculoskeletal: Cachexia, Muscle Wasting Lymphatic: No Cervical, Supraclavicular, or Inguinal Adenopathy Neurological: Neuro grossly intact Psych/Mental Status: Normal Affect, Appropriate Vital Signs Temp Pulse Resp BP Pulse Ox 97.5 F L 86 18 128/81 H 94 09/19/17 10:15 09/19/17 10:15 09/19/17 10:15 09/19/17 10:15 09/19/17 10:15 Oxygen Flow Rate (L/min) [ 2 AMBULATION with Oxygen] Oxygen Flow Rate (L/min) 3 Oxygen Delivery Method Nasal Cannula Weight: 137 lb 14.4 oz Body Mass Index (BMI) 17.3 Intake and Output for Last 24 Hours 09/17/17 09/18/17 09/19/17 23:59 23:59 23:59 Intake Total 3545 / 3545 1504 / 1504 137 / 137 Output Total 675 / 675 450 / 450 400 / 400 Balance 2870 / 2870 1054 / 1054 -263 / -263 Microbiology Past 72 Hours 09/18/17 15:20 Gram Stain - Final Sputum, Expectorated/Coughed Respiratory Culture - Preliminary Appears to be normal respiratory lucio. Further studies to follow. 09/17/17 06:51 Legionella Antigen - Final Urine, Clean Catch Laboratory Tests Past 24 Hrs 09/18/17 09/19/17 09/19/17 12:50 05:45 05:45 WBC 10.9 RBC 4.01 L Hgb 11.5 L Hct 35.7 L MCV 89.0 MCH 28.7 MCHC 32.2 RDW 19.8 H RDW Differential 63.5 H Plt Count 338 MPV 10.0 Immature Gran % (Auto) 0.100 Neut % (Auto) 90.1 H Lymph % (Auto) 5.2 L [place] % (Auto) 4.2 Eos % (Auto) 0.2 Baso % (Auto) 0.2 Absolute Neuts (auto) 9.9 H Absolute Lymphs (auto) 0.57 L Total Counted Not Reportable Differential Comment SCANNED Anisocytosis 2+ Macrocytosis 1+ Target Cells 2+ PT 55.3 H INR 6.2 H* Sodium Potassium Chloride Carbon Dioxide Anion Gap BUN Creatinine Estim Creat Clear Calc Est GFR (MDRD) Af Amer Est GFR (MDRD) Non-Af BUN/Creatinine Ratio Glucose Calcium Blood Type O POSITIVE Antibody Screen NEGATIVE 09/19/17 05:45 WBC RBC Hgb Hct MCV MCH MCHC RDW RDW Differential Plt Count MPV Immature Gran % (Auto) Neut % (Auto) Lymph % (Auto) [place] % (Auto) Eos % (Auto) Baso % (Auto) Absolute Neuts (auto) Absolute Lymphs (auto) Total Counted Differential Comment Anisocytosis Macrocytosis Target Cells PT INR Sodium 142 Potassium 4.5 Chloride 107 Carbon Dioxide 25.0 Anion Gap 10 BUN 22 H Creatinine 0.72 Estim Creat Clear Calc 95.32 Est GFR (MDRD) Af Amer 142 Est GFR (MDRD) Non-Af 117 BUN/Creatinine Ratio 30.4 H Glucose 70 L Calcium 8.9 Blood Type Antibody Screen Clinical Impression(s) from Imaging Studies Chest X-Ray 09/16/17 05:00 IMPRESSION: Patchy left lung infiltrates. Hyperinflation. Electronically Signed: Live Fajardo DO at 6:08 EDT , Service support , Chest X-Ray 09/17/17 06:00 IMPRESSION: Essentially unchanged appearance the chest with multiple findings as described. Electronically Signed: Kristi Leon MD at 11:52 EDT , Service support , Chest X-Ray 09/18/17 07:09 IMPRESSION: Progressive bilateral pleural effusions with underlying infiltration and/or atelectasis superimposed on CHF. Electronically Signed: Daniel Bueno MD at 14:30 EDT Tel [phone], Service support , Videofluoroscopic Swallow 09/18/17 13:30 IMPRESSION: Limited examination. Marked impairment of the swallowing mechanism. Large amount of residual is seen in the vallecula as well as piriform sinus. The swallow study findings were discussed with the patient by the speech pathologist at the conclusion of the examination. Please see speech pathology report for more information and recommendations. Electronically Signed: Daniel Bueno MD at 14:16 EDT Tel [phone], Service support , Medical Necessity - Tobacco Use Smoking Status: Former smoker Tobacco Use: Non-smoker Assessment/Plan All Active Problems Severe sepsis (Acute) Hypoxemia (Acute) Dysphasia (Acute) Aspiration pneumonia due to food (regurgitated) (Acute) Septic shock (Resolved) Dehydration (Resolved) Subtherapeutic international normalized ratio (INR) (Acute) Elevated troponin (Resolved) Hyperbilirubinemia (Resolved) Hyperkalemia (Resolved) Hyponatremia (Resolved) Acute renal failure (Resolved) Community acquired pneumonia (Acute) CHF (congestive heart failure) (Ruled-out) RECOMMENDATIONS: 1. Patient to remain n.p.o. 2. PEG tube placement today 3. Continue Unasyn for aspiration coverage. 4. Administer FFP given ongoing coagulopathy and plans for surgical intervention. 5. Continue to hold Coumadin. 6. Wean supplemental oxygen as tolerated. Encourage incentive spirometer use. IMPRESSIONS: 1. Acute hypoxic respiratory failure secondary to probable aspiration pneumonia Patient reportedly has been seen at [facility] with extensive workup showing aspiration. Repeat swallowing evaluation completed here did reveal market impairment of the swallowing mechanism. The patient is currently scheduled to undergo PEG tube placement later this morning. FFP will be administered in order to correct the patient's underlying coagulopathy. Continue Unasyn as ordered to complete treatment course. 2. Elevated INR Patient with a reported history of mechanical heart valves. Would not recommend aggressive reversal of INR without heparin drip coverage. Patient is not reporting any bleeding complications at this time. However, INR will likely be increased in the setting of antibiotic utilization. Recommend checking INR on a daily basis. No evidence of bleeding. Therefore, no acute indication for reversal. Plan to administer FFP prior to potential PEG tube placement. 3. Acute versus chronic kidney disease Improved compared to admission creatinine of 1.19, but given current BMI this appears to be elevated. Patient does get most of his care at an outside facility. Unknown baseline at this time. This may be secondary to chronic kidney disease and not acute prerenal etiology. Avoid nephrotoxic medications. No indication for renal replacement therapy at this time. 4. Severe malnutrition/dysphagia/history of Hodgkin's lymphoma/chronic systolic congestive heart failure/A. fib Complicates care, management, recovery and prognosis. Patient would benefit from initiation of tube feeds. As above, PEG tube placement is planned for today. This note was generated with [employer] dictation software. It may contain incorrect words, spelling, and punctuation that were not noted in checking the note before signing. Code Visit Inpatient E&M: 48715 Subs Hosp L2
--- NOTE | 2017-09-19 10:26 | PN_ITS ---
Patient Problems: Active and Suspected Problems Severe sepsis (Acute) Hypoxemia (Acute) Dysphasia (Acute) Aspiration pneumonia due to food (regurgitated) (Acute) Community acquired pneumonia (Acute) Subjective: The patient was seen and examined at the bedside this morning. Events from the last 24 hours have been reviewed. The patient is currently afebrile, hemodynamically stable and maintaining appropriate oxygen saturations on 3 L/ min via nasal cannula. The patient swallowing study was completed yesterday and did reveal marked impairment of the swallowing mechanism. He is currently scheduled to undergo PEG tube placement today. FFP is being prepared to be hung , as the patient's INR is still elevated at 6.2 this morning. Objective: The patient's most recent lab work, culture data and imaging studies have all been personally reviewed. Blood cultures have shown no growth to date. Strep and urine Legionella antigens were both negative. Urine cultures show no growth to date. - Physical Exam General: Alert, Cooperative, No apparent distress, - - Sitting in bedside recliner. HEENT: Atraumatic, PERRLA, Normocephalic Oral: No Gingival or Mucosal Lesions/ Ulcerations, Dry Mucosa Neck: Supple, No Nodes, Trachea Midline Lungs: No rhonchi, No wheeze, No rales, Diminished Cardiovascular: Regular rate, Regular Rhythm, Normal S1, Normal S2, No murmurs Abdomen: Bowel Sounds Present, Soft, Non Tender, Non-Distended Extremities: No clubbing, No cyanosis, No edema Skin: No breakdown Musculoskeletal: Cachexia, Muscle Wasting Lymphatic: No Cervical, Supraclavicular, or Inguinal Adenopathy Neurological: Neuro grossly intact Psych/Mental Status: Normal Affect, Appropriate Vital Signs Temp Pulse Resp BP Pulse Ox 97.5 F L 86 18 128/81 H 94 09/19/17 10:15 09/19/17 10:15 09/19/17 10:15 09/19/17 10:15 09/19/17 10:15 Oxygen Flow Rate (L/min) [ 2 AMBULATION with Oxygen] Oxygen Flow Rate (L/min) 3 Oxygen Delivery Method Nasal Cannula Weight: 137 lb 14.4 oz Body Mass Index (BMI) 17.3 Intake and Output for Last 24 Hours 09/17/17 09/18/17 09/19/17 23:59 23:59 23:59 Intake Total 3545 / 3545 1504 / 1504 137 / 137 Output Total 675 / 675 450 / 450 400 / 400 Balance 2870 / 2870 1054 / 1054 -263 / -263 Microbiology Past 72 Hours 09/18/17 15:20 Gram Stain - Final Sputum, Expectorated/Coughed Respiratory Culture - Preliminary Appears to be normal respiratory lucio. Further studies to follow. 09/17/17 06:51 Legionella Antigen - Final Urine, Clean Catch Laboratory Tests Past 24 Hrs 09/18/17 09/19/17 09/19/17 12:50 05:45 05:45 WBC 10.9 RBC 4.01 L Hgb 11.5 L Hct 35.7 L MCV 89.0 MCH 28.7 MCHC 32.2 RDW 19.8 H RDW Differential 63.5 H Plt Count 338 MPV 10.0 Immature Gran % (Auto) 0.100 Neut % (Auto) 90.1 H Lymph % (Auto) 5.2 L [place] % (Auto) 4.2 Eos % (Auto) 0.2 Baso % (Auto) 0.2 Absolute Neuts (auto) 9.9 H Absolute Lymphs (auto) 0.57 L Total Counted Not Reportable Differential Comment SCANNED Anisocytosis 2+ Macrocytosis 1+ Target Cells 2+ PT 55.3 H INR 6.2 H* Sodium Potassium Chloride Carbon Dioxide Anion Gap BUN Creatinine Estim Creat Clear Calc Est GFR (MDRD) Af Amer Est GFR (MDRD) Non-Af BUN/Creatinine Ratio Glucose Calcium Blood Type O POSITIVE Antibody Screen NEGATIVE 09/19/17 05:45 WBC RBC Hgb Hct MCV MCH MCHC RDW RDW Differential Plt Count MPV Immature Gran % (Auto) Neut % (Auto) Lymph % (Auto) [place] % (Auto) Eos % (Auto) Baso % (Auto) Absolute Neuts (auto) Absolute Lymphs (auto) Total Counted Differential Comment Anisocytosis Macrocytosis Target Cells PT INR Sodium 142 Potassium 4.5 Chloride 107 Carbon Dioxide 25.0 Anion Gap 10 BUN 22 H Creatinine 0.72 Estim Creat Clear Calc 95.32 Est GFR (MDRD) Af Amer 142 Est GFR (MDRD) Non-Af 117 BUN/Creatinine Ratio 30.4 H Glucose 70 L Calcium 8.9 Blood Type Antibody Screen Clinical Impression(s) from Imaging Studies Chest X-Ray 09/16/17 05:00 IMPRESSION: Patchy left lung infiltrates. Hyperinflation. Electronically Signed: Live Fajardo DO at 6:08 EDT , Service support , Chest X-Ray 09/17/17 06:00 IMPRESSION: Essentially unchanged appearance the chest with multiple findings as described. Electronically Signed: Kristi Leon MD at 11:52 EDT , Service support , Chest X-Ray 09/18/17 07:09 IMPRESSION: Progressive bilateral pleural effusions with underlying infiltration and/or atelectasis superimposed on CHF. Electronically Signed: Daniel Bueno MD at 14:30 EDT Tel [phone], Service support , Videofluoroscopic Swallow 09/18/17 13:30 IMPRESSION: Limited examination. Marked impairment of the swallowing mechanism. Large amount of residual is seen in the vallecula as well as piriform sinus. The swallow study findings were discussed with the patient by the speech pathologist at the conclusion of the examination. Please see speech pathology report for more information and recommendations. Electronically Signed: Daniel Bueno MD at 14:16 EDT Tel [phone], Service support , Medical Necessity - Tobacco Use Smoking Status: Former smoker Tobacco Use: Non-smoker Assessment/Plan All Active Problems Severe sepsis (Acute) Hypoxemia (Acute) Dysphasia (Acute) Aspiration pneumonia due to food (regurgitated) (Acute) Septic shock (Resolved) Dehydration (Resolved) Subtherapeutic international normalized ratio (INR) (Acute) Elevated troponin (Resolved) Hyperbilirubinemia (Resolved) Hyperkalemia (Resolved) Hyponatremia (Resolved) Acute renal failure (Resolved) Community acquired pneumonia (Acute) CHF (congestive heart failure) (Ruled-out) RECOMMENDATIONS: 1. Patient to remain n.p.o. 2. PEG tube placement today 3. Continue Unasyn for aspiration coverage. 4. Administer FFP given ongoing coagulopathy and plans for surgical intervention. 5. Continue to hold Coumadin. 6. Wean supplemental oxygen as tolerated. Encourage incentive spirometer use. IMPRESSIONS: 1. Acute hypoxic respiratory failure secondary to probable aspiration pneumonia Patient reportedly has been seen at [facility] with extensive workup showing aspiration. Repeat swallowing evaluation completed here did reveal market impairment of the swallowing mechanism. The patient is currently scheduled to undergo PEG tube placement later this morning. FFP will be administered in order to correct the patient's underlying coagulopathy. Continue Unasyn as ordered to complete treatment course. 2. Elevated INR Patient with a reported history of mechanical heart valves. Would not recommend aggressive reversal of INR without heparin drip coverage. Patient is not reporting any bleeding complications at this time. However, INR will likely be increased in the setting of antibiotic utilization. Recommend checking INR on a daily basis. No evidence of bleeding. Therefore, no acute indication for reversal. Plan to administer FFP prior to potential PEG tube placement. 3. Acute versus chronic kidney disease Improved compared to admission creatinine of 1.19, but given current BMI this appears to be elevated. Patient does get most of his care at an outside facility. Unknown baseline at this time. This may be secondary to chronic kidney disease and not acute prerenal etiology. Avoid nephrotoxic medications. No indication for renal replacement therapy at this time. 4. Severe malnutrition/dysphagia/history of Hodgkin's lymphoma/chronic systolic congestive heart failure/A. fib Complicates care, management, recovery and prognosis. Patient would benefit from initiation of tube feeds. As above, PEG tube placement is planned for today. This note was generated with [employer] dictation software. It may contain incorrect words, spelling, and punctuation that were not noted in checking the note before signing. Code Visit Inpatient E&M: 78404 Subs Hosp L2
[2017-09-19 11:47] LABS: Prothrombin Time (Protime)PT. 38.2 SECONDS (11.7-14.9)
[2017-09-19 11:59] LABS: International Normalized Ratio 3.9
--- NOTE | 2017-09-19 12:03 | PCM.OPRPT ---
Report of Operation Date of Procedure: 09/19/17 Pre-Operative Diagnosis: malnutrition, dysphagia, aspiration Post-Operative Diagnosis: malnutrition, dysphagia, aspiration, oral candidiasis, successful PEG placement Surgery/Procedure Performed:: EGD with PEG placement thread grinder tool: None Type of Anesthesia:: MAC Anesthesiologist: Pernell Fitzpatrick - ASA3 Specimen's removed: none Description of Procedure: The patient was brought to the endoscopy suite. Sign in was performed verifying patient, site, planned procedure, critical nursing information, the patient was monitored with cardiac, pulse oximetric, and blood pressure monitoring devices. Monitored anesthetic care was provided for sedation. Following IV sedation and after the oropharynx was sprayed with Cetacaine spray, a video gastroscope was inserted in the oropharynx and advanced down the esophagus without difficulty. The scope was advanced through the stomach, through the pylorus through the duodenum to the proximal jejunum. Following this, 2 finger breaths below the left costal margin. A site was marked. The demonstrated indentation over the anterior aspect of the body of the stomach. The site was cleaned with Betadine. Local anesthetic was injected and a needle inserted into the stomach under endoscopic guidance. A wire was placed through the needle and grasped with a snare, brought up to the oropharynx. A Ponsky pull-type tube was then affixed to the wire. A small incision made on the anterior skin and the Ponsky pull-type tube was brought to the stomach and secured to the anterior abdominal wall. The wire was cut. A buttress was placed and the catheter secured at 1.5 cm. A roller clamp and feeding adapter applied. Repeat upper endoscopy was performed. This demonstrated good positioning of the mushroom of the feeding tube with no signs of bleeding. The remainder of the stomach and the esophagus were unremarkable The patient tolerated the procedure well and was brought to recovery in stable condition
--- NOTE | 2017-09-19 12:15 | CASEMGMT ---
Addendum entered by Louis Winston 09/19/17 13:20: Intro role of CM to in room. [place] [facility] will go picker tender pump today. Discussed that pt may need Home oxygen and would [place] [facility] [place]. Concentrator that ordered for home will not arrive until Oct 06. - Ana María's phone: [phone] -RN RY discussed coumadin resumption on dc w/physician. Per Dr. Hutton, pt will resume coumadin, no bridge therapy will be needed. -[facility] staff. Referral faxed to Alexia @ [facility]. She has arranged for [facility] to take pt with anticipated dc date dominic. Alexia @ [facility] PH: FAX: Original Note: RN RY Note. Call to [employer]- per Gi they attempted to contact for pump delivery. Notified Gi that pt is having PEG placed today, is not in room. Anticipate discharge home tomorrow. Recommended delivery of TF and supplies be prior to dc tomorrow. needs to contact them for delivery. Kymberly CEEN RN ACM
[2017-09-19] MEDS: Acetaminophen 325 MG Tablet 650 MG PO (13:28)
--- NOTE | 2017-09-19 13:39 | CPS ---
pep on own
--- NOTE | 2017-09-19 15:15 | PCM.PROGNOTE ---
Patient Problems: Active and Suspected Problems Severe sepsis (Acute) Hypoxemia (Acute) Dysphasia (Acute) Aspiration pneumonia due to food (regurgitated) (Acute) Community acquired pneumonia (Acute) Subjective: He is resting comfortably in bed post op. Minimal pain. O2 demand has increased however he is not more SOB. He is not coughing since surgery. No fevers or chills. He will start tube feeds tonight. present at bedside. - Physical Exam General: Alert, Oriented x3, Cooperative HEENT: Atraumatic, PERRLA, EOMI, Normocephalic Neck: Supple, No JVD, Negative Carotid Bruits Lungs: Clear to auscultation, Normal air movement Cardiovascular: Regular rate, No murmurs Abdomen: Bowel Sounds Present, Soft, Non Tender Extremities: No edema, Capillary Refill Less than 3 Seconds Skin: No rashes, No breakdown Musculoskeletal: No Tenderness to Palpation of Joints or Extremities Neurological: Cranial nerves II-XII grossly intact Psych/Mental Status: Normal Affect, Appropriate, Alert and oriented to time, place, person, mood and affect Vital Signs Temp Pulse Resp BP Pulse Ox 97.5 F L 88 21 H 145/95 H 90 09/19/17 12:50 09/19/17 13:31 09/19/17 13:31 09/19/17 12:50 09/19/17 12:50 Oxygen Flow Rate (L/min) [ 2 AMBULATION with Oxygen] Oxygen Flow Rate (L/min) 5 Oxygen Delivery Method Nasal Cannula Weight: 137 lb 14.4 oz Body Mass Index (BMI) 17.3 Intake and Output for Last 24 Hours 09/17/17 09/18/17 09/19/17 23:59 23:59 23:59 Intake Total 3545 / 3545 1504 / 1504 787 / 787 Output Total 675 / 675 450 / 450 650 / 650 Balance 2870 / 2870 1054 / 1054 137 / 137 Microbiology Past 72 Hours 09/18/17 15:20 Gram Stain - Final Sputum, Expectorated/Coughed Respiratory Culture - Preliminary Appears to be normal respiratory lucio. Further studies to follow. 09/17/17 06:51 Legionella Antigen - Final Urine, Clean Catch Laboratory Tests Past 24 Hrs 09/19/17 09/19/17 09/19/17 05:45 05:45 05:45 WBC 10.9 RBC 4.01 L Hgb 11.5 L Hct 35.7 L MCV 89.0 MCH 28.7 MCHC 32.2 RDW 19.8 H RDW Differential 63.5 H Plt Count 338 MPV 10.0 Immature Gran % (Auto) 0.100 Neut % (Auto) 90.1 H Lymph % (Auto) 5.2 L [place] % (Auto) 4.2 Eos % (Auto) 0.2 Baso % (Auto) 0.2 Absolute Neuts (auto) 9.9 H Absolute Lymphs (auto) 0.57 L Total Counted Not Reportable Differential Comment SCANNED Anisocytosis 2+ Macrocytosis 1+ Target Cells 2+ PT 55.3 H INR 6.2 H* Sodium 142 Potassium 4.5 Chloride 107 Carbon Dioxide 25.0 Anion Gap 10 BUN 22 H Creatinine 0.72 Estim Creat Clear Calc 95.32 Est GFR (MDRD) Af Amer 142 Est GFR (MDRD) Non-Af 117 BUN/Creatinine Ratio 30.4 H Glucose 70 L Calcium 8.9 09/19/17 11:26 WBC RBC Hgb Hct MCV MCH MCHC RDW RDW Differential Plt Count MPV Immature Gran % (Auto) Neut % (Auto) Lymph % (Auto) [place] % (Auto) Eos % (Auto) Baso % (Auto) Absolute Neuts (auto) Absolute Lymphs (auto) Total Counted Differential Comment Anisocytosis Macrocytosis Target Cells PT 38.2 H INR 3.9 H* Sodium Potassium Chloride Carbon Dioxide Anion Gap BUN Creatinine Estim Creat Clear Calc Est GFR (MDRD) Af Amer Est GFR (MDRD) Non-Af BUN/Creatinine Ratio Glucose Calcium Medical Necessity - Tobacco Use Smoking Status: Former smoker Tobacco Use: Non-smoker Assessment/Plan All Active Problems Severe sepsis (Acute) Hypoxemia (Acute) Dysphasia (Acute) Aspiration pneumonia due to food (regurgitated) (Acute) Septic shock (Resolved) Dehydration (Resolved) Subtherapeutic international normalized ratio (INR) (Acute) Elevated troponin (Resolved) Hyperbilirubinemia (Resolved) Hyperkalemia (Resolved) Hyponatremia (Resolved) Acute renal failure (Resolved) Community acquired pneumonia (Acute) CHF (congestive heart failure) (Ruled-out) 1. Acute severe sepsis 2/2 Acute left sided pna CAP vs. aspiration - continue unasyn, speech therapy, IS/PEP, aerosols. PEG tube placed today per dr. Sandoval. Doing well. -02 demand increased - encouraged spirometry. Lungs are now clear. 2. Acute hypoxic respiratory failure 2/2 above - Continue care as above. Does not use home O2, but has in the past. 3. Esophageal dysmotility with dysphagia - speech therapy. PEG tube in place. Start feeding tonight 20cc/hr advance 20cc/hr [id number] to 60cc/hr check for residuals. 4. Severe protein calorie malnutrition - consult business technology professor. 5. Hx AF - in NSR - hold coumadin for elevated inr. Continue amiodarone. 2 units ffp this AM. Still high. Recheck inr in am. 6. Hx Bronchiectasis per old CT. 7. Hx CHF, diastolic - EF 50%. He does not appear volume overloaded. Hold lasix with borderline pressures. 8. Mild normocytic anemia - stable 9. Hypothyroidism - synthroid 10. GERD - ppi. 11. Hx bioprosthetic MV and AV replacement. 12. Hx Hodgkins in remission s/p radiation therapy. DVT ppx: coumadin DC planning: PTOT. This patient was seen by Lobo Dean PA-C under the supervision of Doctor Hutton.
--- NOTE | 2017-09-19 15:38 | CASEMGMT ---
YOLANDA RAZA NOTE: Call received from nurse with [facility] [phone] requesting we contact [facility] when has received TF and supplies @ home (being shipped from [employer] via [employer]) and pt is discharged. They will have a nurse on standby to set up pump and tube feed. If pt is not being dc'd, she requested we contact them as soon as possible in am. SHalima GUERRERO CM updated. Kymberly MCDERMOTT RN ACM
[2017-09-19] MEDS: Morphine 2 MG/ML Syringe 1 MG IV (16:02)
[2017-09-19] MEDS: Jevity 1.5 1,000 ML 20 ML GT (16:34)
--- NOTE | 2017-09-19 19:00 | PN.SURG_ITS ---
Patient Problems: Active and Suspected Problems Severe sepsis (Acute) Hypoxemia (Acute) Dysphasia (Acute) Aspiration pneumonia due to food (regurgitated) (Acute) Community acquired pneumonia (Acute) - Physical Exam General: Alert, Oriented x3 Lungs: Clear to auscultation, Normal air movement Cardiovascular: Regular rate, No murmurs Abdomen: Bowel Sounds Present, Soft, Non Tender Vital Signs Temp Pulse Resp BP Pulse Ox 97.6 F L 84 18 131/83 H 95 09/19/17 17:50 09/19/17 17:50 09/19/17 17:50 09/19/17 17:50 09/19/17 17:50 Oxygen Flow Rate (L/min) [ 2 AMBULATION with Oxygen] Oxygen Flow Rate (L/min) 3 Oxygen Delivery Method Room Air Weight: 62.55 kg Body Mass Index (BMI) 17.3 Intake and Output for Last 24 Hours 09/17/17 09/18/17 09/19/17 23:59 23:59 23:59 Intake Total 3545 / 3545 1504 / 1504 969 / 969 Output Total 675 / 675 450 / 450 650 / 650 Balance 2870 / 2870 1054 / 1054 319 / 319 Microbiology Past 72 Hours 09/18/17 15:20 Gram Stain - Final Sputum, Expectorated/Coughed Respiratory Culture - Preliminary Appears to be normal respiratory lucio. Further studies to follow. 09/17/17 06:51 Legionella Antigen - Final Urine, Clean Catch Laboratory Tests Past 24 Hrs 09/19/17 09/19/17 09/19/17 05:45 05:45 05:45 WBC 10.9 RBC 4.01 L Hgb 11.5 L Hct 35.7 L MCV 89.0 MCH 28.7 MCHC 32.2 RDW 19.8 H RDW Differential 63.5 H Plt Count 338 MPV 10.0 Immature Gran % (Auto) 0.100 Neut % (Auto) 90.1 H Lymph % (Auto) 5.2 L [place] % (Auto) 4.2 Eos % (Auto) 0.2 Baso % (Auto) 0.2 Absolute Neuts (auto) 9.9 H Absolute Lymphs (auto) 0.57 L Total Counted Not Reportable Differential Comment SCANNED Anisocytosis 2+ Macrocytosis 1+ Target Cells 2+ PT 55.3 H INR 6.2 H* Sodium 142 Potassium 4.5 Chloride 107 Carbon Dioxide 25.0 Anion Gap 10 BUN 22 H Creatinine 0.72 Estim Creat Clear Calc 95.32 Est GFR (MDRD) Af Amer 142 Est GFR (MDRD) Non-Af 117 BUN/Creatinine Ratio 30.4 H Glucose 70 L Calcium 8.9 09/19/17 11:26 WBC RBC Hgb Hct MCV MCH MCHC RDW RDW Differential Plt Count MPV Immature Gran % (Auto) Neut % (Auto) Lymph % (Auto) [place] % (Auto) Eos % (Auto) Baso % (Auto) Absolute Neuts (auto) Absolute Lymphs (auto) Total Counted Differential Comment Anisocytosis Macrocytosis Target Cells PT 38.2 H INR 3.9 H* Sodium Potassium Chloride Carbon Dioxide Anion Gap BUN Creatinine Estim Creat Clear Calc Est GFR (MDRD) Af Amer Est GFR (MDRD) Non-Af BUN/Creatinine Ratio Glucose Calcium Medical Necessity - Tobacco Use Smoking Status: Former smoker Tobacco Use: Non-smoker Assessment/Plan All Active Problems Severe sepsis (Acute) Hypoxemia (Acute) Dysphasia (Acute) Aspiration pneumonia due to food (regurgitated) (Acute) Septic shock (Resolved) Dehydration (Resolved) Subtherapeutic international normalized ratio (INR) (Acute) Elevated troponin (Resolved) Hyperbilirubinemia (Resolved) Hyperkalemia (Resolved) Hyponatremia (Resolved) Acute renal failure (Resolved) Community acquired pneumonia (Acute) CHF (congestive heart failure) (Ruled-out) esophageal motility disorder, aspiration, aspiration pneumonia, warfarin toxicity, need for feeding access I plan to perform an EGD with PEG tube placement at noon today. The patient understands the risks, benefits, possible complications, including risk of bleeding, and agrees to the procedure.. We will make him nothing by mouth for the procedure tomorrow. He is currently on Unasyn for his pneumonia. This will be appropriate robotic coverage for his PEG tube. Since he will require repeat anticoagulation due to his replaced aortic and mitral valves, I have asked that we just give 2 units of FFP at a proximally 10:00 with planned for procedure at noon. - INR will be obtained between the first and second
[2017-09-19] MEDS: ALPRAZolam 0.5 MG Tablet GT (21:31)
[2017-09-20] VITALS (13 sets, daily range): BP systolic 126–139; BP diastolic 71–84; PULSE 83–87; RESP 16–24; TEMP 36.5–36.8; O2SAT 86–95
[2017-09-20] MEDS: Ipratropium/Albuterol Sulfate 3 ML AMPUL.NEB INHALATION ×2 (01:35→06:55)
[2017-09-20] MEDS: Levothyroxine 100 MCG Tablet PO (06:25)
[2017-09-20 06:36] LABS: Absolute Neutrophil Count 7.8 X10^3/uL (2.0-7.7); Basophil# 0.02 X10^3/uL; Basophil% 0.2 % (0-1); Eosinophil# 0.06 X10^3/uL; Eosinophils% 0.7 % (0-5); Hematocrit 35.1 % (40-54); Hemoglobin 11.1 g/dl (13.0-16.5); Lymphocyte % 5.6 % (19-41); Mean Corp Hgb Conc 31.6 g/gl (32-36); Mean Corpuscular Hgb 28.5 pg (27.0-32.0); Monocyte# 0.51 X10^3/uL; Monocyte% 5.8 % (0-10); Neutrophil # 7.75 X10^3/uL (2.7-7.7); Neutrophil % 87.5 % (47-70); Platelet Count 343 K/mm3 (150-450); RBC Distribution Width CV 19.9 % (11.6-14.6); RBC Distribution Width SD 64.3 fl (35.1-43.9); White Blood Count 8.9 K/mm3 (4.4-11.0)
[2017-09-20 06:37] LABS: Prothrombin Time (Protime)PT. 39.1 SECONDS (11.7-14.9)
[2017-09-20 06:39] LABS: Differential Indicated SCAN CRITERIA MET; POSITIVE COUNT NO; POSITIVE DIFFERENTIAL YES; POSITIVE MORPHOLOGY NO
[2017-09-20 06:47] LABS: ALB/GLOB Ratio 0.6 RATIO (0.9-2.4); AST(SGOT) 31 U/L (15-37); Alanine Aminotransfer ALT/SGPT 29 U/L (16-61); Albumin, Serum 2.9 g/dL (3.2-5.0); Alkaline Phosphatase 190 U/L (45-117); Anion Gap 7 (5-15); BUN 22 mg/dL (7-18); Calcium,Total 8.8 mg/dL (8.5-10.1); Chloride 106 mmol/L (98-107); Creatinine, Serum 0.82 mg/dL (0.70-1.30); EST Glomerular Filtration Rate 102 mL/min (>60); Est Glom Filt Rate - Afr Amer 124 mL/min (>60); Globulin 5.2 g/dL (2.2-4.2); Glucose 178 mg/dL (74-106); Protein, Total 8.1 g/dL (6.4-8.2); Sodium Level 143 mmol/L (136-145)
--- NOTE | 2017-09-20 07:43 | CPS ---
patient does not want the venti mask. put back on 6 lpm, and placed in pt's mouth, discussed with nursing.
[2017-09-20] MEDS: Aspirin 81 MG TAB.CHEW PO (08:56)
[2017-09-20] MEDS: predniSONE 5 MG Tablet PO (08:56)
[2017-09-20] MEDS: Amiodarone 200 MG Tablet 100 MG PO (09:01)
[2017-09-20] MEDS: Pantoprazole Sodium 20 MG Tablet PO (09:01)
--- NOTE | 2017-09-20 10:02 | PCM.PROGNOTE ---
Patient Problems: Active and Suspected Problems Severe sepsis (Acute) Hypoxemia (Acute) Dysphasia (Acute) Aspiration pneumonia due to food (regurgitated) (Acute) Community acquired pneumonia (Acute) Subjective: The patient was seen and examined at the bedside this morning. Events from the last 24 hours have been reviewed. The patient is currently afebrile, hemodynamically stable and maintaining appropriate oxygen saturations on 3 L/min via nasal cannula. The patient did undergo successful PEG tube placement yesterday. INR remains elevated at 4.0. He is in good spirits and tolerating tube feeds currently. Objective: The patient's most recent lab work, culture data and imaging studies have all been personally reviewed. Blood cultures have shown no growth to date. Strep and urine Legionella antigens were both negative. Urine cultures show no growth to date. - Physical Exam General: Alert, Cooperative, No apparent distress HEENT: Atraumatic, PERRLA, Normocephalic Oral: No Gingival or Mucosal Lesions/ Ulcerations, Dry Mucosa Neck: Supple, No Nodes, Trachea Midline Lungs: No rhonchi, No wheeze, No rales, Diminished Cardiovascular: Regular rate, Regular Rhythm, Normal S1, Normal S2, No murmurs Abdomen: Bowel Sounds Present, Soft, Non Tender, - - +PEG (C/D/I) Extremities: No clubbing, No cyanosis, No edema Skin: No breakdown Musculoskeletal: Cachexia, Muscle Wasting Neurological: Neuro grossly intact Psych/Mental Status: Normal Affect, Appropriate Vital Signs Temp Pulse Resp BP Pulse Ox 97.7 F L 87 18 133/71 H 95 09/20/17 09:18 09/20/17 09:18 09/20/17 09:18 09/20/17 09:18 09/20/17 09:18 Oxygen Flow Rate (L/min) [ 2 AMBULATION with Oxygen] Oxygen Flow Rate (L/min) 3 Oxygen Delivery Method Nasal Cannula Weight: 136 lb 10.986 oz Body Mass Index (BMI) 17.3 Intake and Output for Last 24 Hours 09/18/17 09/19/17 09/20/17 23:59 23:59 23:59 Intake Total 1504 / 1504 1158 / 1158 303 / 303 Output Total 450 / 450 950 / 950 300 / 300 Balance 1054 / 1054 208 / 208 3 / 3 Microbiology Past 72 Hours 07/30/18 15:20 Gram Stain - Final Sputum, Expectorated/Coughed Respiratory Culture - Final Presumptive C albicans 09/17/17 06:51 Legionella Antigen - Final Urine, Clean Catch Laboratory Tests Past 24 Hrs 09/19/17 09/20/17 09/20/17 11:26 05:20 05:20 WBC 8.9 RBC 3.90 L Hgb 11.1 L Hct 35.1 L MCV 90.0 MCH 28.5 MCHC 31.6 L RDW 19.9 H RDW Differential 64.3 H Plt Count 343 MPV 10.0 Immature Gran % (Auto) 0.200 Neut % (Auto) 87.5 H Lymph % (Auto) 5.6 L [place] % (Auto) 5.8 Eos % (Auto) 0.7 Baso % (Auto) 0.2 Absolute Neuts (auto) 7.8 H Absolute Lymphs (auto) 0.50 L Total Counted Not Reportable PT 38.2 H 39.1 H INR 3.9 H* 4.0 H* Sodium Potassium Chloride Carbon Dioxide Anion Gap BUN Creatinine Estim Creat Clear Calc Est GFR (MDRD) Af Amer Est GFR (MDRD) Non-Af BUN/Creatinine Ratio Glucose Calcium Total Bilirubin AST ALT Alkaline Phosphatase Total Protein Albumin Globulin Albumin/Globulin Ratio 09/20/17 05:20 WBC RBC Hgb Hct MCV MCH MCHC RDW RDW Differential Plt Count MPV Immature Gran % (Auto) Neut % (Auto) Lymph % (Auto) [place] % (Auto) Eos % (Auto) Baso % (Auto) Absolute Neuts (auto) Absolute Lymphs (auto) Total Counted PT INR Sodium 143 Potassium 4.0 Chloride 106 Carbon Dioxide 30.0 Anion Gap 7 BUN 22 H Creatinine 0.82 Estim Creat Clear Calc 83.70 Est GFR (MDRD) Af Amer 124 Est GFR (MDRD) Non-Af 102 BUN/Creatinine Ratio 27.0 H Glucose 178 H Calcium 8.8 Total Bilirubin 0.90 AST 31 ALT 29 Alkaline Phosphatase 190 H Total Protein 8.1 Albumin 2.9 L Globulin 5.2 H Albumin/Globulin Ratio 0.6 L Clinical Impression(s) from Imaging Studies Chest X-Ray 09/16/17 05:00 IMPRESSION: Patchy left lung infiltrates. Hyperinflation. Electronically Signed: Live Fajardo DO at 6:08 EDT , Service support , Chest X-Ray 09/17/17 06:00 IMPRESSION: Essentially unchanged appearance the chest with multiple findings as described. Electronically Signed: Kristi Leon MD at 11:52 EDT , Service support , Chest X-Ray 09/18/17 07:09 IMPRESSION: Progressive bilateral pleural effusions with underlying infiltration and/or atelectasis superimposed on CHF. Electronically Signed: Daneil Bueno MD at 14:30 EDT Tel [phone], Service support , Videofluoroscopic Swallow 09/18/17 13:30 IMPRESSION: Limited examination. Marked impairment of the swallowing mechanism. Large amount of residual is seen in the vallecula as well as piriform sinus. The swallow study findings were discussed with the patient by the speech pathologist at the conclusion of the examination. Please see speech pathology report for more information and recommendations. Electronically Signed: Daniel Bueno MD at 14:16 EDT Tel [phone], Service support , Medical Necessity - Tobacco Use Smoking Status: Former smoker Tobacco Use: Non-smoker Assessment/Plan All Active Problems Severe sepsis (Acute) Hypoxemia (Acute) Dysphasia (Acute) Aspiration pneumonia due to food (regurgitated) (Acute) Septic shock (Resolved) Dehydration (Resolved) Subtherapeutic international normalized ratio (INR) (Acute) Elevated troponin (Resolved) Hyperbilirubinemia (Resolved) Hyperkalemia (Resolved) Hyponatremia (Resolved) Acute renal failure (Resolved) Community acquired pneumonia (Acute) CHF (congestive heart failure) (Ruled-out) RECOMMENDATIONS: 1. Continue tube feeds as ordered. 2. Transition to Augmentin to complete treatment course for aspiration pneumonia. 3. Continue to hold Coumadin, given supratherapeutic INR 4. Wean supplemental oxygen as tolerated. Encourage incentive spirometer use. IMPRESSIONS: 1. Acute hypoxic respiratory failure secondary to probable aspiration pneumonia Patient reportedly has been seen at [facility] with extensive workup showing aspiration. Repeat swallowing evaluation completed here did reveal market impairment of the swallowing mechanism. The patient subsequently underwent PEG tube placement on September 19 and is currently tolerating tube feeds. He is continued to improve clinically following treatment with Unasyn for aspiration pneumonia. IV antibiotics can be transitioned to Augmentin to complete treatment course. 2. Elevated INR Patient with a reported history of mechanical heart valves. Would not recommend aggressive reversal of INR without heparin drip coverage. Patient is not reporting any bleeding complications at this time. However, INR will likely be increased in the setting of antibiotic utilization. Recommend checking INR on a daily basis. No evidence of bleeding. Therefore, no acute indication for reversal. 3. Acute versus chronic kidney disease Improved compared to admission creatinine of 1.19, but given current BMI this appears to be elevated. Patient does get most of his care at an outside facility. Unknown baseline at this time. This may be secondary to chronic kidney disease and not acute prerenal etiology. Avoid nephrotoxic medications. No indication for renal replacement therapy at this time. 4. Severe malnutrition/dysphagia/history of Hodgkin's lymphoma/chronic systolic congestive heart failure/A. fib Complicates care, management, recovery and prognosis. This note was generated with [employer] dictation software. It may contain incorrect words, spelling, and punctuation that were not noted in checking the note before signing. Code Visit Inpatient E&M: 88637 Subs Hosp L2
--- NOTE | 2017-09-20 10:40 | PN.SURG_ITS ---
Patient Problems: Active and Suspected Problems Severe sepsis (Acute) Hypoxemia (Acute) Dysphasia (Acute) Aspiration pneumonia due to food (regurgitated) (Acute) Community acquired pneumonia (Acute) Subjective: mild discomfort at PEG insertion site - Physical Exam General: Alert, Oriented x3, Cooperative Lungs: Rhonchi Cardiovascular: Regular rate, Regular Rhythm Abdomen: Bowel Sounds Present, Soft, - - PEG site clean Vital Signs Temp Pulse Resp BP Pulse Ox 97.7 F L 87 18 133/71 H 95 09/20/17 09:18 09/20/17 09:18 09/20/17 09:18 09/20/17 09:18 09/20/17 09:18 Oxygen Flow Rate (L/min) [ 2 AMBULATION with Oxygen] Oxygen Flow Rate (L/min) 3 Oxygen Delivery Method Nasal Cannula Weight: 62 kg Body Mass Index (BMI) 17.3 Intake and Output for Last 24 Hours 09/18/17 09/19/17 09/20/17 23:59 23:59 23:59 Intake Total 1504 / 1504 1158 / 1158 303 / 303 Output Total 450 / 450 950 / 950 300 / 300 Balance 1054 / 1054 208 / 208 3 / 3 Microbiology Past 72 Hours 09/18/17 15:20 Gram Stain - Final Sputum, Expectorated/Coughed Respiratory Culture - Final Presumptive C albicans 09/17/17 06:51 Legionella Antigen - Final Urine, Clean Catch Laboratory Tests Past 24 Hrs 09/19/17 09/20/17 09/20/17 11:26 05:20 05:20 WBC 8.9 RBC 3.90 L Hgb 11.1 L Hct 35.1 L MCV 90.0 MCH 28.5 MCHC 31.6 L RDW 19.9 H RDW Differential 64.3 H Plt Count 343 MPV 10.0 Immature Gran % (Auto) 0.200 Neut % (Auto) 87.5 H Lymph % (Auto) 5.6 L [place] % (Auto) 5.8 Eos % (Auto) 0.7 Baso % (Auto) 0.2 Absolute Neuts (auto) 7.8 H Absolute Lymphs (auto) 0.50 L Total Counted Not Reportable PT 38.2 H 39.1 H INR 3.9 H* 4.0 H* Sodium Potassium Chloride Carbon Dioxide Anion Gap BUN Creatinine Estim Creat Clear Calc Est GFR (MDRD) Af Amer Est GFR (MDRD) Non-Af BUN/Creatinine Ratio Glucose Calcium Total Bilirubin AST ALT Alkaline Phosphatase Total Protein Albumin Globulin Albumin/Globulin Ratio 09/20/17 05:20 WBC RBC Hgb Hct MCV MCH MCHC RDW RDW Differential Plt Count MPV Immature Gran % (Auto) Neut % (Auto) Lymph % (Auto) [place] % (Auto) Eos % (Auto) Baso % (Auto) Absolute Neuts (auto) Absolute Lymphs (auto) Total Counted PT INR Sodium 143 Potassium 4.0 Chloride 106 Carbon Dioxide 30.0 Anion Gap 7 BUN 22 H Creatinine 0.82 Estim Creat Clear Calc 83.70 Est GFR (MDRD) Af Amer 124 Est GFR (MDRD) Non-Af 102 BUN/Creatinine Ratio 27.0 H Glucose 178 H Calcium 8.8 Total Bilirubin 0.90 AST 31 ALT 29 Alkaline Phosphatase 190 H Total Protein 8.1 Albumin 2.9 L Globulin 5.2 H Albumin/Globulin Ratio 0.6 L Medical Necessity - Tobacco Use Smoking Status: Former smoker Tobacco Use: Non-smoker Assessment/Plan All Active Problems Severe sepsis (Acute) Hypoxemia (Acute) Dysphasia (Acute) Aspiration pneumonia due to food (regurgitated) (Acute) Septic shock (Resolved) Dehydration (Resolved) Subtherapeutic international normalized ratio (INR) (Acute) Elevated troponin (Resolved) Hyperbilirubinemia (Resolved) Hyperkalemia (Resolved) Hyponatremia (Resolved) Acute renal failure (Resolved) Community acquired pneumonia (Acute) CHF (congestive heart failure) (Ruled-out) esophageal motility disorder, aspiration, aspiration pneumonia, warfarin toxicity, need for feeding access POD #1 EGD with PEG tube placement at noon today. The patient understands the risks, benefits, possible complications, including risk of bleeding, and agrees to the procedure. His tube feed rate is 60cc - at goal..
--- NOTE | 2017-09-20 11:24 | CASEMGMT ---
Addendum entered by Tanisha Hammonds 09/20/17 16:29: Dr Hutton put D/C order/instructions in at this time. Per Dr. Hutton, pt also needs 150cc tap water flush via PEG four times daily to meet dietary requirement and this was added as order and faxed to [facility], along with d/c paperwork at this time and call to Brooke at [facility] to update on all, voices understanding. Pt's oxygen tank was already delivered and pt to be discharged at this time. Nikita GUERRERO CM Original Note: Addendum entered by Tanisha Hammonds 09/20/17 14:14: Call also placed to Brooke at [facility] to notify her that supplies are at home and that pt will be discharged, voices understanding. D/C summary/instructions to be faxed when obtained. Nikita GUERRERO CM Original Note: Addendum entered by Tanisha Hammonds 09/20/17 14:09: Per Fernanda GUERRERO, pt did qualify for home oxygen and referral faxed to [facility] previously per pt preference. This RN CM spoke with and per , the meds/supplies are at their home at this time. updated on all at this time, voices understanding. [facility] states referral was received and they are sending a tank over at this time. Call to Yohan ACHARYA to check on pt disposition and he states he will be working on discharge momentarily. Pt/ updated at this time. Nikita GUERRERO CM Original Note: Call to Queenie at [facility] and she states that pt's picked up pole and pump yesterday and supplies are scheduled to be delivered today via [employer]. Call to Brooke at [facility] to notify of pt discharge today and about supplies. Brooke inquires about sending home pt with a bag of tube feed. This RN CM will speak with Gurpreet bermudez RN regarding this. Pt is to be tested for home oxygen prior to discharge. Advised Brooke that this RN CM would call back with further updates and also fax discharge instructions/summary when obtained, voices understanding. Contact for Brooke at [facility] [phone]. Nikita GUERRERO CM
--- NOTE | 2017-09-20 14:08 | DS.PCM_ITS ---
Discharge Date and Diagnosis - Problem List Patient Problems: Active and Suspected Problems Severe sepsis (Acute) Hypoxemia (Acute) Dysphasia (Acute) Aspiration pneumonia due to food (regurgitated) (Acute) Community acquired pneumonia (Acute) Date of Admission: 09/16/17 Date of Discharge: 09/20/17 - Primary Discharge Diagnosis Active and Suspected Problems Acute severe sepsis 2/2 Aspiration pna Severe esophageal dysmotility, dysphagia 2/2 radiation therapy, s/p new PEG tube this admission Severe protein malnutrition 2/2 above Paroxysmal Afib Coumadin coagulopathy Hx Bronchiectasis Hx CHF Chronic anemia Hypothyroidism GERD Hx Bioprosthetic AV, MV Hx Hodgkins disease in remission s/p radiation. - Secondary Discharge Diagnosis Chronic Problems CHF (congestive heart failure) (Chronic) Hypothyroidism (Chronic) Chronic anticoagulation (Chronic) Status post mitral valve replacement (Chronic) Status post aortic valve replacement (Chronic) Normochromic normocytic anemia (Chronic) Bilateral pleural effusion (Chronic) Atrial fibrillation (Chronic) Pleural effusion (Chronic) Hodgkin's disease in remission (Chronic) Mitral valve regurgitation (Chronic) Aortic valve regurgitation (Chronic) Hospital Course and Treatment Imaging Results: RAD/Chest 1 View (Portable) IMPRESSION: Patchy left lung infiltrates. Hyperinflation. RAD/Chest 1 View (Portable) IMPRESSION: Essentially unchanged appearance the chest with multiple findings as described. Barium Swallow: INTERPRETATION OF RESULTS: Patient presents with profound oropharyngeal dysphagia (R13.12) and pharyngoesophageal dysphagia (R13.14) secondary to prior Hodgkin's disease status post radiation intervention (1986) resulting in esophageal dysmotility status post esophageal dilatation (x2) and resulting severe malnutrition, bronchiectasis, chronic obstructive pulmonary disease. Patiens swallow function impaired globally, most notably within the pharyngeal phase, with absent pharyngeal swallow (Patient reporting on multiple occasions that he swallowed, with no significant movement appreciated or any effect on bolus motility); inability to effect closure of the airway during deglutition with the laryngeal vestibule completely exposed while the bolus gradually moved through the pharynx ; and profound pharyngeal dysmotility, with no pharyngeal constriction noted, all bolus movement attributed to gravity vs. pharyngeal constrictor action. Very wide diameter within the pharyngeal arena, with clear musculature atrophy. Results indicate not only a high risk for aspiration, but also an extremely high risk for asphyxiation with more solid textures, with trials of more viscous textures held due to concerns for safety. RAD/Swallowing Function w/Video IMPRESSION: Limited examination. Marked impairment of the swallowing mechanism. Large amount of residual is seen in the vallecula as well as piriform sinus. RAD/Chest PA and Lateral IMPRESSION: Progressive bilateral pleural effusions with underlying infiltration and/or atelectasis superimposed on CHF. Consults: Pulmonary - [facility] Gen surgery - Jaime Procedures: Peg tube placement Summary of Care Provided: physical exam on day of discharge: General: Resting comfortably NAD, cachectic Psych: A/Ox3 normal affect HEENT: PEARRLA AT NC Neck: Supple NT CV: RRR no m/t/r/g/h Resp: CTA Abd: [id number] Soft NT no guarding or rigidity Ext: DP2+= no edema Skin: W/D normal turgor Lymph/Heme: No active bleeding or adenopathy Neuro: CN2-12 intact Patient is a 62 year old M with a hx of dysphagia 2/2 esophageal dysmotility induced by radiation for hodgkins lymphoma, with a hx of protein malnutrition, CHF, bronchiectasis, paroxysmal afib, chronic anemia, GERD, hypothyroidism, bioprosthetic aortic and mitral valves, who presented to the ER with increased SOB and productive cough. CXR showed infiltrates, and he appeared to be severely septic with leukocytosis, tachypnea, tachycardia, and elevated lactate. He required 6 lpm O2 via NC and was fet to be in acute hypoxic respiratory failure. With his severe dysphagia it was presumed that he had aspiration pna. He was placed on unasyn, aerosols, mucinex. Cultures were sent. Blood cultures negative. Sputum showed c albicans.He had a very poor swallow study as above and was kept NPO. Pulmonary medicine and general surgery were consulted. With his inability to tolerate any diet and malnourishment, it was felt that he needed a PEG tube now - he planned to have this done as an outpatient. Given his current situation it was felt that it could not wait, and he was agreeable. He tolerated the procedure well. Tube feeds were started per Dr. Sandoval and his meds were changed to GT. Lab Support Technician recommended Jevity 1.5 with a goal of 56 cc/hr with 15 cc H2O flushes q 4 hours for 2016 calories, 86 g protein, 1921 cc fluid per day. He did continue to require up to 3 lpm O2 via NC at rest and will need to continue this going forward. He was arranged to have home tube feeds and home O2. He was discharged home with home health care. He will need to have 5 more days of augmentin liquid 800mg BID via the PEG tube to complete a total of 10 days of therapy for aspiration pna. He will need to continue to hold his coumadin as throughout his stay it was supratherapeutic and is still needing to trend down. He will have an outpatient INR on Monday. He needs to follow up with his PCP, general surgery, and pulmonology. This patient was seen by Lobo Dean PA-C under the supervision of Doctor Hutton. [] Discharge Diet: - - TF recommendations: Jevity 1.5 at goal rate of 56 cc/hr with 150 cc H2O flushes every 4 hours to provide 2016 calories, 86 g protein, 1921 cc total fluid per day. Recommend starting at 20 cc/hour and increasing by 20 cc every 6-8 hours as pt tolerates until goal rate acheived. Discharge Activity: Return to Normal Activity Home Medications: Medications to take at Discharge Aspirin [Aspirin, Baby] 81 mg PO DAILY@0800 01/23/16 Furosemide [Lasix] 20 mg PO QODAY 01/23/16 Levothyroxine [Synthroid] 100 mcg PO DAILY 01/23/16 Amiodarone HCl [Pacerone] 100 mg PO DAILY 01/01/17 Omeprazole 20 mg PO DAILY 01/01/17 Prednisone 5 mg PO DAILY 01/01/17 Spironolactone [Aldactone] 25 mg PO QODAY 09/16/17 Warfarin [Coumadin] 1 mg PO DAILY@1700 09/16/17 Primary Care Physician: Criss Leyva MD [Primary Care Provider] - Please follow up with your Primary Care Physician in: 1-2 weeks Please Follow Up With: Wayne Dumont DO When: 2 weeks Please Follow Up With: Biju Sandoval MD - Call for appointment When: As directed Disposition: Home Minutes spent on discharge:: 35 Patient Condition:: Stable Medical Necessity - Tobacco Use Smoking Status: Former smoker Tobacco Use: Non-smoker Meaningful Use Info Meaningful Use Diagnoses (Choose all that apply): None applicable
--- NOTE | 2017-09-20 15:49 | DCINST_ITS ---
- Discharge Diagnoses Current Active Problems: Current Active and Chronic Problems Severe sepsis (Acute) Hypoxemia (Acute) Dysphasia (Acute) Aspiration pneumonia due to food (regurgitated) (Acute) Community acquired pneumonia (Acute) You will use the following diet at home:: Other - nothing per oral Discharge Activity: Return to Normal Activity Allergies/Adverse Reactions: Allergies meloxicam Adverse Reaction (Verified 09/16/17 04:11) Nausea naproxen [From Naprosyn] Adverse Reaction (Verified 09/16/17 04:11) Nausea Medications to take at Discharge Aspirin [Aspirin, Baby] 81 mg PO DAILY@0800 01/23/16 Levothyroxine [Synthroid] 100 mcg PO DAILY 01/23/16 Amiodarone HCl [Pacerone] 100 mg PO DAILY 01/01/17 Omeprazole 20 mg PO DAILY 01/01/17 Prednisone 5 mg PO DAILY 01/01/17 Amox/Clav 400mg/5ml Susp [Augmentin Suspension 400mg/5ml] 875 mg GT BIDCM #120 ml 09/20/17 The following prescriptions were given: Amox/Clav 400mg/5ml Susp [Augmentin Suspension 400mg/5ml] 875 mg GT BIDCM #120 ml Primary Care Physician: Criss Leyva MD [Primary Care Provider] - Please follow up with your Primary Care Physician in: 1-2 weeks Test Results: Test results from this visit will be discussed in further detail at your follow- up appointment, if applicable. Please Follow Up With: Wayne Dumont DO When: 2 weeks Please Follow Up With: Biju Sandoval MD - Call for appointment When: As directed
== END 2017-09-20 16:34 | disposition home health service (06) | DRG 871 ==
LOC: ED 04:33 → ICU 09:46 → PCU 09:54
PROVIDERS: Physician Assistant; Surgery; Admitting Provider Internal Medicine; Emergency Provider Emergency Medicine; Family Provider Internal Medicine; PCP Internal Medicine; Visit Provider Internal Medicine
PROC: 0DH64UZ Insertion of Feeding Device into Stomach, Percutaneous Endoscopic Approach (ICD-10-PCS; CPT 43246; principal; 2017-09-19 11:25)
DX: A41.9 Sepsis, unspecified organism (principal); J69.0 Pneumonitis due to inhalation of food and vomit; R65.21 Severe sepsis with septic shock; J96.01 Acute respiratory failure with hypoxia; E43 Unspecified severe protein-calorie malnutrition; I50.32 Chronic diastolic (congestive) heart failure; B37.0 Candidal stomatitis; R79.1 Abnormal coagulation profile; T45.515A Adverse effect of anticoagulants, initial encounter; K22.4 Dyskinesia of esophagus; R13.11 Dysphagia, oral phase; R13.13 Dysphagia, pharyngeal phase; I48.0 Paroxysmal atrial fibrillation; E86.0 Dehydration; J44.9 Chronic obstructive pulmonary disease, unspecified; E03.9 Hypothyroidism, unspecified; K21.9 Gastro-esophageal reflux disease without esophagitis; Y84.2 Radiological procedure and radiotherapy as the cause of abnormal reaction of the patient, or of later complication, without mention of misadventure at the time of the procedure; Y92.9 Unspecified place or not applicable; Z79.82 Long term (current) use of aspirin; Z79.01 Long term (current) use of anticoagulants; Z79.52 Long term (current) use of systemic steroids; Z79.899 Other long term (current) drug therapy; Z85.71 Personal history of Hodgkin lymphoma; Z92.3 Personal history of irradiation; Z87.891 Personal history of nicotine dependence; Z95.2 Presence of prosthetic heart valve; Z90.81 Acquired absence of spleen
CPT/HCPCS: 36415; 36600; 71045; 71046; 74230; 80048; 80053; 81001; 82803; 83605; 84484; 85025; 85027; 85610; 85730; 86644; 86850; 86900; 87040; 87070; 87086; 87205; 87449; 92526; 92611; 93005; 94640; 94667; 94668; 97802; 99285; J7030; J7040; J7050; P9017; A4216; J0295; J0696

== ENCOUNTER 2017-09-21 15:25 | Inpatient (IN) | payer OTHER, SELFPAY ==
[2017-09-21] VITALS (23 sets, daily range): BP systolic 118–176; BP diastolic 67–95; PULSE 77–95; RESP 14–26; TEMP 36.1–36.6; O2SAT 69–100; BMI 16.5; BMI 18.0
--- NOTE | 2017-09-21 15:56 | RAD_ITS ---
STUDY: X-RAY CHEST REASON FOR EXAM: Male, 62 years old. SENT IN BY HOME HEALTH FOR SPO2 OF 79 ON 5L O2. PNEUMONIA, PEG PLACEMENT. TECHNIQUE: Single frontal view of the chest. COMPARISON: September 18, 2017 FINDINGS: There are multiple median sternotomy wires. Postsurgical clips near the right upper lobe. Slight prominence of the pulmonary vasculature. Fluffy bilateral infiltrates. There is no pneumothorax. There are bilateral pleural effusions. The osseous structures are intact. The heart appears enlarged. Normal mediastinum and liza. There is prominence of the pulmonary hilar arteries and peripheral pulmonary arteries, consistent with congestive heart failure (CHF). There is atherosclerotic calcification of the aortic arch with tortuosity. There are diffuse degenerative changes of the visualized thoracic spine. There is degenerative osteoarthritis of the bilateral shoulders. There is no demonstrated abnormality of the visualized soft tissue structures of the upper abdomen. IMPRESSION: Central pulmonary vascular congestion vs pulmonary edema-stable. Overlying pneumonia cannot be excluded. Electronically Signed: Jose De Jesus Marie MD at 17:18 EDT , Service support , RAD/Chest 1 View (Portable)
--- NOTE | 2017-09-21 15:57 | EKG12_ITS ---
Test Reason : SOB Blood Pressure : / mmHG Vent. Rate : 089 BPM Atrial Rate : 089 BPM P-R Int : 228 ms QRS Dur : 136 ms QT Int : 416 ms P-R-T Axes : 084 -15 114 degrees QTc Int : 506 ms Sinus rhythm with 1st degree A-V block Left bundle branch block Abnormal ECG Confirmed by MARTÍNEZ CASON, ALYSHA ([id number]), book or script editor DIXON ALLEN ([id number] on 09/25/2017 2:02:42 PM Referred By: VIC Confirmed By:ALYSHA SOLIZ MD
--- NOTE | 2017-09-21 15:58 | ED.VISSUMM ---
- ER Visit Summary Date of Service: 09/21/17 Chief Complaint: Shortness of breath History of Present Illness: The patient is a 62 M presenting with shortness of breath, low pulse ox. Patient was sent in by his home health nurse. He was found to have a pulse ox of 69% on 5 L. He was discharged from the hospital yesterday. He was admitted on Monday for aspiration pneumonia. He had a PEG tube placed on Monday. He has chronic dysphagia secondary to radiation therapy for Hodgkin's lymphoma. History of COPD. He is currently on Augmentin for aspiration pneumonia. states he was doing well when he went home but he worsened today. He has history of mitral and atrial valve replacement. His Coumadin is on hold for elevated INR. He is a previous smoker. Temperature up to 99.1 at home. He denies chest pain. Physical Examination: Vitals are stable. Patient is afebrile. Alert no acute distress. HEENT exam is dry mucous membranes Neck is supple. Lungs are wheezing bilaterally. Heart is regular tachycardic Abdomen is soft nontender nondistended. PEG tube Extremities are unremarkable. Skin is warm and dry. No focal neurologic deficit. Remainder of exam is unremarkable. Emergency Department Course and Treatment: EKG is sinus rate of 89 with left bundle branch block. ABG shows pH 7.28, PO2 74, PCO2 76.2. He is given IV fluids, albuterol, Atrovent. He is currently on Augmentin. He was started on noninvasive ventilation in the emergency department. Chest x-ray shows central pulmonary vascular congestion vs pulmonary edema-stable. Overlying pneumonia cannot be excluded. CBC shows a white count of 15.4, hemoglobin 11.2. Chemistries show glucose 137, BUN 21. INR is 2.6. Troponin is less than 0.015. Lactic acid is 2.2. Patient has improvement on BiPAP. Will discuss with the hospitalist for admission. Disposition: Admission Impression: Hypercapnic respiratory failure, aspiration pneumonia This note was generated with [employer] dictation software. It may contain incorrect words, spelling, and punctuation that were not noted in review of the chart prior to signing ED Disposition - Plan for ED Patient: Chief Complaint: Weakness Referrals: Criss Leyva MD [Primary Care Provider] -
[2017-09-21] MEDS: Ipratropium/Albuterol Sulfate 3 ML AMPUL.NEB INHALATION ×2 (16:17→22:46)
[2017-09-21] MEDS: Albuterol 2.5 MG/3 ML VIAL.NEB. INHALATION ×2 (16:17)
[2017-09-21] MEDS: 0.9% Normal Saline 1,000 ML 1000 ML IV (16:28)
--- NOTE | 2017-09-21 16:35 | ED.RN ---
RECENT PEG TUBE. STARTED TUBE FEEDS WED 08/20.
[2017-09-21 16:36] LABS: Allen Test POS; Base Excess 9 mmol/L (-2 to +2); Bicarbonate 35.4 mmol/L (22-26); Blood Gas Specimen Type ART; O2 Delivery Device Nasal Can; PO2 74 mmHG (75-100); SITE L Radial; SO2 92 % (95-99); Time Given 420; Total Carbon Dioxide 38 mmol/L; pCO2 76.2 mmHg (35-45); pH 7.28 (7.35-7.45)
[2017-09-21 16:43] LABS: International Normalized Ratio 2.6; Prothrombin Time (Protime)PT. 27.8 SECONDS (11.7-14.9)
--- NOTE | 2017-09-21 16:45 | ED.RN ---
PT LETHARGIC, DIFFICULTY STAYING AWAKE. ABLE TO ANSWER QUESTIONS. OPENS EYES TO VOICE. ACCESSORY MUSCLES TO BREATH
[2017-09-21 16:55] LABS: Anion Gap 3 (5-15); BUN 21 mg/dL (7-18); BUN/Creat Ratio 28.1 RATIO (10-20); Calcium,Total 8.9 mg/dL (8.5-10.1); Chloride 104 mmol/L (98-107); Creatinine, Serum 0.75 mg/dL (0.70-1.30); EST Glomerular Filtration Rate 113 mL/min (>60); Est Glom Filt Rate - Afr Amer 137 mL/min (>60); Estimated Creatinine Clearance 87.59 ml/min; Glucose 137 mg/dL (74-106); Potassium 4.8 mmol/L (3.5-5.1); Sodium Level 142 mmol/L (136-145)
[2017-09-21 16:57] LABS: Basophil# 0.01 X10^3/uL; Basophil% 0.1 % (0-1); Eosinophil# 0.01 X10^3/uL; Eosinophils% 0.1 % (0-5); RBC Distribution Width SD 67.6 fl (35.1-43.9)
[2017-09-21 17:04] LABS: Differential Indicated SCAN CRITERIA MET; Hematocrit 35.9 % (40-54); Hemoglobin 11.2 g/dl (13.0-16.5); Mean Corp Hgb Conc 31.2 g/gl (32-36); Mean Corpuscular Hgb 28.6 pg (27.0-32.0); Mean Corpuscular Volume 91.8 fL (80-94); Mean Platelet Vol. 11.2 fl (6.2-12.0); Neutrophil % 91.2 % (47-70); POSITIVE COUNT NO; POSITIVE DIFFERENTIAL NO; POSITIVE MORPHOLOGY YES; Platelet Count 382 K/mm3 (150-450); RBC Distribution Width CV 20.5 % (11.6-14.6); Red Blood Count 3.91 M/mm3 (4.6-6.2); White Blood Count 15.4 K/mm3 (4.4-11.0)
[2017-09-21 17:05] LABS: Absolute Lymphocyte Count 0.62 X10^3/ul (0.83-4.51); Absolute Neutrophil Count 14.1 X10^3/uL (2.0-7.7); Lymphocyte # 0.62 X10^3/ul (4.0); Monocyte# 0.65 X10^3/uL; Monocyte% 4.2 % (0-10); Neutrophil # 14.09 X10^3/uL (2.7-7.7)
[2017-09-21 17:12] LABS: Lactic Acid 2.2 mmol/L (0.4-2.0)
[2017-09-21 17:40] LABS: Anisocytosis 1+; Macrocytosis RARE; Platelet Estimate ADEQUATE (ADEQ)
[2017-09-21 18:21] LABS: Allen Test POS; Base Excess 5 mmol/L (-2 to +2); Bicarbonate 32.2 mmol/L (22-26); Blood Gas Specimen Type ART; EPAP 6; FI02 40; IPAP 15; PO2 78 mmHG (75-100); RR 14; SITE L Radial; SO2 92 % (95-99); Time Given 545; Total Carbon Dioxide 34 mmol/L; pCO2 75.2 mmHg (35-45); pH 7.24 (7.35-7.45)
--- NOTE | 2017-09-21 18:26 | PCM.HP.STD ---
Problem List (1) Dysphasia Status: Acute (2) Aspiration pneumonia due to food (regurgitated) Status: Acute Qualifiers: (3) CHF (congestive heart failure) Status: Chronic (4) Hypothyroidism Status: Chronic Qualifiers: (5) Chronic anticoagulation Status: Chronic (6) Status post mitral valve replacement Status: Chronic (7) Normochromic normocytic anemia Status: Chronic (8) Bilateral pleural effusion Status: Chronic (9) Atrial fibrillation Status: Chronic Qualifiers: History of Present Illness Date of Admission: 09/21/17 Chief Complaint: Worsening shortness of breath, hypoxia. The patient is a 62 year old M with complicated past medical history as mentioned above presented to the emergency room from home because of worsening shortness of breath and low pulse oximeter. This patient was discharged from the hospital yesterday and he was admitted for aspiration pneumonia and dysphagia status post PEG tube placement, was discharged on Augmentin and returning back to the for worsening shortness of breath and hypoxia. Reportedly, his pulse ox at home was 69% on 5 L. At this time, patient is dyspneic, tachypneic and sleepy but easily arousable. He was able to answer my questions. He did mention that his breathing got worse since yesterday, was weak and tired and complains of productive cough. He denied chest pain, dizziness or lightheadedness. He denies fever or chills. Denied abdominal pain, nausea vomiting. He has a history of mitral and aortic valve replacement with bioprosthetic valves for mitral and aortic valve regurgitation. He had a history of paroxysmal atrial fibrillation and he has been on Coumadin for anticoagulation. He has history of Hodgkin's lymphoma status post chemotherapy, in remission. He has a history of chronic bilateral pleural effusion which is unclear if it is due to transudative or exudative effusion. He has a history of chronic heart failure which is apparently due to valvular heart disease. In the emergency room, patient was dyspneic and tachypneic, heart rate and blood pressure was stable his pulse ox was 69% on room air upon arrival to ER. His routine blood work was remarkable for leukocytosis, otherwise normal. His lactic acid was 2.2. Troponin was negative. EKG revealed normal sinus rhythm with left bundle branch work which is chronic, no acute ischemic changes. INR was 2.6. ABG revealed pH of 7.24, PCO2 of 75 and PO2 of 78. Chest x-ray revealed bilateral pleural effusion, more on the left side, findings consistent with pulmonary vascular congestion and underlying infiltrate cannot be ruled out. Patient is being admitted for acute hypoxic and hypercapnic respiratory failure which could be due to acute on chronic congestive heart failure versus partially treated aspiration pneumonia which is less likely. Past Medical History Past Medical History (Chronic Problems): Chronic Problems CHF (congestive heart failure) (Chronic) Hypothyroidism (Chronic) Chronic anticoagulation (Chronic) Status post mitral valve replacement (Chronic) Status post aortic valve replacement (Chronic) Normochromic normocytic anemia (Chronic) Bilateral pleural effusion (Chronic) Atrial fibrillation (Chronic) Pleural effusion (Chronic) Hodgkin's disease in remission (Chronic) Mitral valve regurgitation (Chronic) Aortic valve regurgitation (Chronic) Allergies meloxicam Adverse Reaction (Verified 09/21/17 15:31) Nausea naproxen [From Naprosyn] Adverse Reaction (Verified 09/21/17 15:31) Nausea Home Medications: Ambulatory Orders Medication Instructions Recorded Aspirin [Aspirin, Baby] 81 mg GT DAILY@0800 01/23/16 Levothyroxine [Synthroid] 100 mcg GT DAILY 01/23/16 Amiodarone HCl [Pacerone] 100 mg GT DAILY 01/01/17 Omeprazole 20 mg GT DAILY 01/01/17 Prednisone 5 mg GT DAILY 01/01/17 Amox/Clav 400mg/5ml Susp 875 mg GT BIDCM 09/21/17 [Augmentin Suspension 400mg/5ml] Surgical History: arthroscopy, knee, - - splenectomy for Hodgkin's disease, fracture rt arm, repair of right foot drop, exploratory laparotomy of chest and abdomen for Hodgkin's disease, s/p nasal surgery, bioprosthetic AVR and MVR at [facility] Psychiatric History: No pertinent psych hx Lives: Spouse/ Significant Other Smoking Status: Former smoker Alcohol: None Drugs: None - *Family History Maternal History Items: Cancer - colon cancer Paternal History Items: No pertinent history Review of Systems Constitutional: Reports: Weakness. Denies: Anorexia, Chills, Fever Eyes: Denies: Blurred vision, Double vision, Drainage, Redness HEENT: Denies: Difficulty Hearing, Ear Pain, Eye Pain, Nasal Congestion, Sore Throat Cardiovascular: Denies: Chest Pain, Chest Pressure, Chest Tightness, Edema, Palpitations, Syncope Respiratory: Reports: Cough, Shortness of Breath, Shortness of breath at rest, Sputum production. Denies: Wheezing Gastrointestinal: Denies: Abdominal Pain, Constipation, Diarrhea, Nausea, Vomiting Genitourinary: Denies: Dysuria, Frequency, Hematuria Musculoskeletal: Denies: Arm Pain, Back Pain, Foot Pain Skin: Denies: Dryness, Rash Neurological: Denies: Balance problems, Double vision, Change in Speech, Slurred speech, Headaches, Incoordination, Numbness Psychiatric: Denies: Anxiety, Depression Endocrine: Denies: Change in Body Habitus, Polydipsia VTE Information - Inpt Only VTE Present on Admission: No VTE Mechan Device Prophylaxis: None VTE Pharm Prophylaxis ordered?: No - Physical Exam General: Alert, Cooperative, - - He is in moderate to severe respiratory distress. HEENT: Atraumatic, PERRLA, EOMI, Normocephalic Oral: Moist Mucosa, No Gingival or Mucosal Lesions/ Ulcerations Neck: Supple, No JVD, Negative Carotid Bruits, Trachea Midline, Thyroid Normal Size and Texture Lungs: Diminished, Rales, Rhonchi, Short of Breath, Tachypneic, Wheezes, - - Decreased breath sounds bilateral more at the bases, bilateral rhonchi, crackles, scattered wheezing. Cardiovascular: Regular rate, Regular Rhythm, Normal S1, Normal S2, PMI Normal Abdomen: Bowel Sounds Present, Soft, Non Tender, Non-Distended, No Hepato-splenomegaly, - - PEG tube in place. Extremities: No clubbing, No cyanosis, No edema Skin: No rashes, No breakdown Lymphatic: No Cervical, Supraclavicular, or Inguinal Adenopathy Neurological: Cranial nerves II-XII grossly intact, Neuro grossly intact, Motor Exam 5/5 strength throughout Psych/Mental Status: Normal Affect, Appropriate Vital Signs Temp Pulse Resp BP Pulse Ox 97 F L 91 26 H 152/87 H 93 09/21/17 15:26 09/21/17 18:21 09/21/17 18:21 09/21/17 18:08 09/21/17 18:21 Oxygen Flow Rate (L/min) 6 Oxygen Delivery Method Nasal Cannula Weight: 132 lb Body Mass Index (BMI) 16.5 Laboratory Tests Past 24 Hrs 09/21/17 09/21/17 09/21/17 15:56 16:15 16:15 WBC 15.4 H RBC 3.91 L Hgb 11.2 L Hct 35.9 L MCV 91.8 MCH 28.6 MCHC 31.2 L RDW 20.5 H RDW Differential 67.6 H Plt Count 382 MPV 11.2 Immature Gran % (Auto) 0.400 Neut % (Auto) 91.2 H Lymph % (Auto) 4.0 L Pike % (Auto) 4.2 Eos % (Auto) 0.1 Baso % (Auto) 0.1 Absolute Neuts (auto) 14.1 H Absolute Lymphs (auto) 0.62 L Total Counted Not Reportable Platelet Estimate ADEQUATE Anisocytosis 1+ Macrocytosis RARE PT 27.8 H INR 2.6 Specimen Type Sample Site pH Bicarbonate Actual POC Total CO2 Base Excess O2 Saturation O2 % ABG pCO2 ABG pO2 Percy Test Respiration Rate O2 Delivery Device Liter Flow EPAP IPAP Blood Gas Notified Whom Blood Gas Notified Time Sodium 142 Potassium 4.8 Chloride 104 Carbon Dioxide 35.0 H Anion Gap 3 L BUN 21 H Creatinine 0.75 Estim Creat Clear Calc 87.59 Est GFR (MDRD) Af Amer 137 Est GFR (MDRD) Non-Af 113 BUN/Creatinine Ratio 28.1 H Glucose 137 H Lactic Acid Calcium 8.9 Troponin I < 0.015 09/21/17 09/21/17 09/21/17 16:15 16:24 18:15 WBC RBC Hgb Hct MCV MCH MCHC RDW RDW Differential Plt Count MPV Immature Gran % (Auto) Neut % (Auto) Lymph % (Auto) Pike % (Auto) Eos % (Auto) Baso % (Auto) Absolute Neuts (auto) Absolute Lymphs (auto) Total Counted Platelet Estimate Anisocytosis Macrocytosis PT INR Specimen Type ART ART Sample Site L Radial L Radial pH 7.28 L 7.24 L Bicarbonate Actual 35.4 H 32.2 H POC Total CO2 38 34 Base Excess 9 H 5 H O2 Saturation 92 L 92 L O2 % 40 ABG pCO2 76.2 H* 75.2 H* ABG pO2 74 L 78 Percy Test POS POS Respiration Rate 14 O2 Delivery Device Nasal Can Bi / C PAP Liter Flow 6.0 EPAP 6 IPAP 15 Blood Gas Notified Whom ED MD ED MD Blood Gas Notified Time 420 545 Sodium Potassium Chloride Carbon Dioxide Anion Gap BUN Creatinine Estim Creat Clear Calc Est GFR (MDRD) Af Amer Est GFR (MDRD) Non-Af BUN/Creatinine Ratio Glucose Lactic Acid 2.2 H Calcium Troponin I Clinical Impression(s) from Imaging Studies Chest X-Ray 09/21/17 15:56 IMPRESSION: Central pulmonary vascular congestion vs pulmonary edema-stable. Overlying pneumonia cannot be excluded. Electronically Signed: Jose De Jesus Marie MD at 17:18 EDT , Service support , RAD/Chest 1 View (Portable) Assessment/Plan All Active Problems Dysphasia (Acute) Aspiration pneumonia due to food (regurgitated) (Acute) This is a 62 years old male patient presented to the emergency room because of worsening shortness of breath and low pulse oximeter in context of discharge from the hospital yesterday, was admitted for aspiration pneumonia and dysphagia and he was discharged on Augmentin and tube feeds, found to have findings consistent with probable acute on chronic congestive heart failure and found also to have severe sepsis could be due to partially treated aspiration pneumonia. #1 acute hypoxic and hypercapnic respiratory failure: Differential diagnoses include acute on chronic CHF versus aspiration pneumonia. Patient is a big time smoker, quit smoking years ago and probably he has COPD as well. Chest x-ray reviewed, revealed increasing bilateral pleural effusion, more on the left side with findings consistent with CHF. Underlying pneumonia cannot be ruled out. Patient was discharged from the hospital yesterday on Augmentin for aspiration pneumonia. EKG revealed normal sinus rhythm with left bundle branch block which is chronic, no acute changes. Troponin is negative. He does have history of aortic and mitral valve replacement with bioprosthetic valve as well as history of CHF. He had an echocardiogram done on December 2016 that showed ejection fraction of 50%, stable appearing bioprosthetic mitral and aortic valve. No history of CAD. Plan: Admit to ICU, complete bedrest, n.p.o., insert Busch catheter, continue BiPAP, start IV Zosyn, bronchodilators, 2D echocardiogram, serial cardiac enzymes, EKG tomorrow morning, repeat lactic acid in 3 hours, blood culture, sputum culture, urine culture, repeat CBC and CMP tomorrow morning, critical care consult, PT OT evaluation and treatment. #2 severe sepsis: Based on tachypnea, hypoxia, elevated lactic acid, respiratory acidosis as well as probable evidence of infection which is the aspiration pneumonia. At this time, blood pressure and heart rate are stable. Patient received 1 L of IV fluid bolus in the ER. Plan: Blood culture, urine culture, sputum culture, IV Zosyn, repeat lactic acid in 3 hours. At this time, my suspicion is that patient has acute on chronic CHF and IV fluids might worsen his respiratory status. Plan to repeat lactic acid 3 hours and start IV antibiotics as above. #3 probable acute on chronic congestive heart failure, probably diastolic: This is based on symptoms of shortness of breath and chest x-ray findings as well as history of aortic and mitral valve replacement. EKG revealed left bundle branch block, no acute ischemic changes. Troponin is negative. Plan: 2D echocardiogram, BNP, start IV Lasix. 2D echocardiogram from December, reviewed as above. #4 recent history of aspiration pneumonia: Patient was discharged yesterday from the hospital on Augmentin. mentioned that patient may drink some water yesterday but no obvious aspiration. He has been afebrile, he does have leukocytosis. Plan: Start IV Zosyn, diabetes, blood, sputum and urine cultures #5 dysphagia status post PEG tube placement: We will keep on n.p.o. for now, nutrition consult, speech therapy evaluation and treatment. #6 status post aortic and mitral valve replacement with bioprosthetic valve: From 2D echocardiogram on December 2016, the bioprosthetic aortic and mitral valve appeared to be stable. Plan for 2D echocardiogram. #7 paroxysmal atrial fibrillation: At this time, is in sinus rhythm, rate is controlled. Plan to continue amiodarone for rate control. His INR is 2.6, therapeutic. Plan to resume Coumadin tomorrow. #8 hypothyroidism: Continue levothyroxine through GT tube. #9 history of Hodgkin's lymphoma: Status post chemotherapy, in remission, stable. #10 DVT prophylaxis: INR is 2.6. #11 CODE STATUS: Full code. After discussion with the patient and his , patient stated that he once everything to be done including CPR, chest compressions and mechanical ventilation. At this time, he seemed to be oriented and competent. was at the bedside and she agreed and she mentioned that he is alert and oriented and competent as well. This note was generated with [employer] software. It may contain incorrect words, spelling, and punctuation that were not noted in checking the note before signing. Code Visit Inpatient E&M: 10906 Init Hosp L3
--- NOTE | 2017-09-21 18:35 | HP.PCM_ITS ---
Problem List (1) Dysphasia Status: Acute (2) Aspiration pneumonia due to food (regurgitated) Status: Acute Qualifiers: (3) CHF (congestive heart failure) Status: Chronic (4) Hypothyroidism Status: Chronic Qualifiers: (5) Chronic anticoagulation Status: Chronic (6) Status post mitral valve replacement Status: Chronic (7) Normochromic normocytic anemia Status: Chronic (8) Bilateral pleural effusion Status: Chronic (9) Atrial fibrillation Status: Chronic Qualifiers: History of Present Illness Date of Admission: 09/21/17 Chief Complaint: Worsening shortness of breath, hypoxia. The patient is a 62 year old M with complicated past medical history as mentioned above presented to the emergency room from home because of worsening shortness of breath and low pulse oximeter. This patient was discharged from the hospital yesterday and he was admitted for aspiration pneumonia and dysphagia status post PEG tube placement, was discharged on Augmentin and returning back to the for worsening shortness of breath and hypoxia. Reportedly , his pulse ox at home was 69% on 5 L. At this time, patient is dyspneic, tachypneic and sleepy but easily arousable. He was able to answer my questions. He did mention that his breathing got worse since yesterday, was weak and tired and complains of productive cough. He denied chest pain, dizziness or lightheadedness. He denies fever or chills. Denied abdominal pain , nausea vomiting. He has a history of mitral and aortic valve replacement with bioprosthetic valves for mitral and aortic valve regurgitation. He had a history of paroxysmal atrial fibrillation and he has been on Coumadin for anticoagulation. He has history of Hodgkin's lymphoma status post chemotherapy , in remission. He has a history of chronic bilateral pleural effusion which is unclear if it is due to transudative or exudative effusion. He has a history of chronic heart failure which is apparently due to valvular heart disease. In the emergency room, patient was dyspneic and tachypneic, heart rate and blood pressure was stable his pulse ox was 69% on room air upon arrival to ER. His routine blood work was remarkable for leukocytosis, otherwise normal. His lactic acid was 2.2. Troponin was negative. EKG revealed normal sinus rhythm with left bundle branch work which is chronic, no acute ischemic changes. INR was 2.6. ABG revealed pH of 7.24, PCO2 of 75 and PO2 of 78. Chest x-ray revealed bilateral pleural effusion, more on the left side, findings consistent with pulmonary vascular congestion and underlying infiltrate cannot be ruled out. Patient is being admitted for acute hypoxic and hypercapnic respiratory failure which could be due to acute on chronic congestive heart failure versus partially treated aspiration pneumonia which is less likely. Past Medical History Past Medical History (Chronic Problems): Chronic Problems CHF (congestive heart failure) (Chronic) Hypothyroidism (Chronic) Chronic anticoagulation (Chronic) Status post mitral valve replacement (Chronic) Status post aortic valve replacement (Chronic) Normochromic normocytic anemia (Chronic) Bilateral pleural effusion (Chronic) Atrial fibrillation (Chronic) Pleural effusion (Chronic) Hodgkin's disease in remission (Chronic) Mitral valve regurgitation (Chronic) Aortic valve regurgitation (Chronic) Allergies meloxicam Adverse Reaction (Verified 09/21/17 15:31) Nausea naproxen [From Naprosyn] Adverse Reaction (Verified 09/21/17 15:31) Nausea Home Medications: Ambulatory Orders Medication Instructions Recorded Aspirin [Aspirin, Baby] 81 mg GT DAILY@0800 01/23/16 Levothyroxine [Synthroid] 100 mcg GT DAILY 01/23/16 Amiodarone HCl [Pacerone] 100 mg GT DAILY 01/01/17 Omeprazole 20 mg GT DAILY 01/01/17 Prednisone 5 mg GT DAILY 01/01/17 Amox/Clav 400mg/5ml Susp 875 mg GT BIDCM 09/21/17 [Augmentin Suspension 400mg/5ml] Surgical History: arthroscopy, knee, - - splenectomy for Hodgkin's disease, fracture rt arm, repair of right foot drop, exploratory laparotomy of chest and abdomen for Hodgkin's disease, s/p nasal surgery, bioprosthetic AVR and MVR at [facility] Psychiatric History: No pertinent psych hx Lives: Spouse/ Significant Other Smoking Status: Former smoker Alcohol: None Drugs: None - *Family History Maternal History Items: Cancer - colon cancer Paternal History Items: No pertinent history Review of Systems Constitutional: Reports: Weakness. Denies: Anorexia, Chills, Fever Eyes: Denies: Blurred vision, Double vision, Drainage, Redness HEENT: Denies: Difficulty Hearing, Ear Pain, Eye Pain, Nasal Congestion, Sore Throat Cardiovascular: Denies: Chest Pain, Chest Pressure, Chest Tightness, Edema, Palpitations, Syncope Respiratory: Reports: Cough, Shortness of Breath, Shortness of breath at rest, Sputum production. Denies: Wheezing Gastrointestinal: Denies: Abdominal Pain, Constipation, Diarrhea, Nausea, Vomiting Genitourinary: Denies: Dysuria, Frequency, Hematuria Musculoskeletal: Denies: Arm Pain, Back Pain, Foot Pain Skin: Denies: Dryness, Rash Neurological: Denies: Balance problems, Double vision, Change in Speech, Slurred speech, Headaches, Incoordination, Numbness Psychiatric: Denies: Anxiety, Depression Endocrine: Denies: Change in Body Habitus, Polydipsia VTE Information - Inpt Only VTE Present on Admission: No VTE Mechan Device Prophylaxis: None VTE Pharm Prophylaxis ordered?: No - Physical Exam General: Alert, Cooperative, - - He is in moderate to severe respiratory distress. HEENT: Atraumatic, PERRLA, EOMI, Normocephalic Oral: Moist Mucosa, No Gingival or Mucosal Lesions/ Ulcerations Neck: Supple, No JVD, Negative Carotid Bruits, Trachea Midline, Thyroid Normal Size and Texture Lungs: Diminished, Rales, Rhonchi, Short of Breath, Tachypneic, Wheezes, - - Decreased breath sounds bilateral more at the bases, bilateral rhonchi, crackles , scattered wheezing. Cardiovascular: Regular rate, Regular Rhythm, Normal S1, Normal S2, PMI Normal Abdomen: Bowel Sounds Present, Soft, Non Tender, Non-Distended, No Hepato- splenomegaly, - - PEG tube in place. Extremities: No clubbing, No cyanosis, No edema Skin: No rashes, No breakdown Lymphatic: No Cervical, Supraclavicular, or Inguinal Adenopathy Neurological: Cranial nerves II-XII grossly intact, Neuro grossly intact, Motor Exam 5/5 strength throughout Psych/Mental Status: Normal Affect, Appropriate Vital Signs Temp Pulse Resp BP Pulse Ox 97 F L 91 26 H 152/87 H 93 09/21/17 15:26 09/21/17 18:21 09/21/17 18:21 09/21/17 18:08 09/21/17 18:21 Oxygen Flow Rate (L/min) 6 Oxygen Delivery Method Nasal Cannula Weight: 132 lb Body Mass Index (BMI) 16.5 Laboratory Tests Past 24 Hrs 09/21/17 09/21/17 09/21/17 15:56 16:15 16:15 WBC 15.4 H RBC 3.91 L Hgb 11.2 L Hct 35.9 L MCV 91.8 MCH 28.6 MCHC 31.2 L RDW 20.5 H RDW Differential 67.6 H Plt Count 382 MPV 11.2 Immature Gran % (Auto) 0.400 Neut % (Auto) 91.2 H Lymph % (Auto) 4.0 L [place] % (Auto) 4.2 Eos % (Auto) 0.1 Baso % (Auto) 0.1 Absolute Neuts (auto) 14.1 H Absolute Lymphs (auto) 0.62 L Total Counted Not Reportable Platelet Estimate ADEQUATE Anisocytosis 1+ Macrocytosis RARE PT 27.8 H INR 2.6 Specimen Type Sample Site pH Bicarbonate Actual POC Total CO2 Base Excess O2 Saturation O2 % ABG pCO2 ABG pO2 Percy Test Respiration Rate O2 Delivery Device Liter Flow EPAP IPAP Blood Gas Notified Whom Blood Gas Notified Time Sodium 142 Potassium 4.8 Chloride 104 Carbon Dioxide 35.0 H Anion Gap 3 L BUN 21 H Creatinine 0.75 Estim Creat Clear Calc 87.59 Est GFR (MDRD) Af Amer 137 Est GFR (MDRD) Non-Af 113 BUN/Creatinine Ratio 28.1 H Glucose 137 H Lactic Acid Calcium 8.9 Troponin I < 0.015 09/21/17 09/21/17 09/21/17 16:15 16:24 18:15 WBC RBC Hgb Hct MCV MCH MCHC RDW RDW Differential Plt Count MPV Immature Gran % (Auto) Neut % (Auto) Lymph % (Auto) [place] % (Auto) Eos % (Auto) Baso % (Auto) Absolute Neuts (auto) Absolute Lymphs (auto) Total Counted Platelet Estimate Anisocytosis Macrocytosis PT INR Specimen Type ART ART Sample Site L Radial L Radial pH 7.28 L 7.24 L Bicarbonate Actual 35.4 H 32.2 H POC Total CO2 38 34 Base Excess 9 H 5 H O2 Saturation 92 L 92 L O2 % 40 ABG pCO2 76.2 H* 75.2 H* ABG pO2 74 L 78 Percy Test POS POS Respiration Rate 14 O2 Delivery Device Nasal Can Bi / C PAP Liter Flow 6.0 EPAP 6 IPAP 15 Blood Gas Notified Whom ED MD ED MD Blood Gas Notified Time 420 545 Sodium Potassium Chloride Carbon Dioxide Anion Gap BUN Creatinine Estim Creat Clear Calc Est GFR (MDRD) Af Amer Est GFR (MDRD) Non-Af BUN/Creatinine Ratio Glucose Lactic Acid 2.2 H Calcium Troponin I Clinical Impression(s) from Imaging Studies Chest X-Ray 09/21/17 15:56 IMPRESSION: Central pulmonary vascular congestion vs pulmonary edema-stable. Overlying pneumonia cannot be excluded. Electronically Signed: Jose De Jesus Marie MD at 17:18 EDT , Service support , RAD/Chest 1 View (Portable) Assessment/Plan All Active Problems Dysphasia (Acute) Aspiration pneumonia due to food (regurgitated) (Acute) This is a 62 years old male patient presented to the emergency room because of worsening shortness of breath and low pulse oximeter in context of discharge from the hospital yesterday, was admitted for aspiration pneumonia and dysphagia and he was discharged on Augmentin and tube feeds, found to have findings consistent with probable acute on chronic congestive heart failure and found also to have severe sepsis could be due to partially treated aspiration pneumonia. #1 acute hypoxic and hypercapnic respiratory failure: Differential diagnoses include acute on chronic CHF versus aspiration pneumonia. Patient is a big time smoker, quit smoking years ago and probably he has COPD as well. Chest x- ray reviewed, revealed increasing bilateral pleural effusion, more on the left side with findings consistent with CHF. Underlying pneumonia cannot be ruled out. Patient was discharged from the hospital yesterday on Augmentin for aspiration pneumonia. EKG revealed normal sinus rhythm with left bundle branch block which is chronic, no acute changes. Troponin is negative. He does have history of aortic and mitral valve replacement with bioprosthetic valve as well as history of CHF. He had an echocardiogram done on December 2016 that showed ejection fraction of 50%, stable appearing bioprosthetic mitral and aortic valve. No history of CAD. Plan: Admit to ICU, complete bedrest, n.p.o., insert Busch catheter, continue BiPAP, start IV Zosyn, bronchodilators, 2D echocardiogram, serial cardiac enzymes, EKG tomorrow morning, repeat lactic acid in 3 hours, blood culture, sputum culture, urine culture, repeat CBC and CMP tomorrow morning, critical care consult, PT OT evaluation and treatment. #2 severe sepsis: Based on tachypnea, hypoxia, elevated lactic acid, respiratory acidosis as well as probable evidence of infection which is the aspiration pneumonia. At this time, blood pressure and heart rate are stable. Patient received 1 L of IV fluid bolus in the ER. Plan: Blood culture, urine culture, sputum culture, IV Zosyn, repeat lactic acid in 3 hours. At this time , my suspicion is that patient has acute on chronic CHF and IV fluids might worsen his respiratory status. Plan to repeat lactic acid 3 hours and start IV antibiotics as above. #3 probable acute on chronic congestive heart failure, probably diastolic: This is based on symptoms of shortness of breath and chest x-ray findings as well as history of aortic and mitral valve replacement. EKG revealed left bundle branch block, no acute ischemic changes. Troponin is negative. Plan: 2D echocardiogram, BNP, start IV Lasix. 2D echocardiogram from December, reviewed as above. #4 recent history of aspiration pneumonia: Patient was discharged yesterday from the hospital on Augmentin. mentioned that patient may drink some water yesterday but no obvious aspiration. He has been afebrile, he does have leukocytosis. Plan: Start IV Zosyn, diabetes, blood, sputum and urine cultures #5 dysphagia status post PEG tube placement: We will keep on n.p.o. for now, nutrition consult, speech therapy evaluation and treatment. #6 status post aortic and mitral valve replacement with bioprosthetic valve: From 2D echocardiogram on December 2016, the bioprosthetic aortic and mitral valve appeared to be stable. Plan for 2D echocardiogram. #7 paroxysmal atrial fibrillation: At this time, is in sinus rhythm, rate is controlled. Plan to continue amiodarone for rate control. His INR is 2.6, therapeutic. Plan to resume Coumadin tomorrow. #8 hypothyroidism: Continue levothyroxine through GT tube. #9 history of Hodgkin's lymphoma: Status post chemotherapy, in remission, stable. #10 DVT prophylaxis: INR is 2.6. #11 CODE STATUS: Full code. After discussion with the patient and his , patient stated that he once everything to be done including CPR, chest compressions and mechanical ventilation. At this time, he seemed to be oriented and competent. was at the bedside and she agreed and she mentioned that he is alert and oriented and competent as well. This note was generated with [employer] software. It may contain incorrect words, spelling, and punctuation that were not noted in checking the note before signing. Code Visit Inpatient E&M: 56468 Init Hosp L3
--- NOTE | 2017-09-21 19:36 | ECHOD_ITS ---
Reason For Study: SOB Procedure This was a 2D Doppler, Color Flow transthoracic echocardiogram. The study was technically difficult. Exam performed portable in ICU/CCU. Left Ventricle Normal LV size. Segmental dysfunction with preserved ejection fraction (see wall motion). The estimated ejection fraction is 65 %. Post operative septal motion. Unable to assess diastolic dysfunction. Basal inferoseptal: Hypokinetic. Basal anteroseptal: Hypokinetic. Mid-inferoseptal : Hypokinetic. Mid-anteroseptal : Hypokinetic. Septal [place] : Hypokinetic. Right Ventricle Normal RV size. Normal systolic function. Atria Normal left atrium. Normal right atrium. No doppler evidence for ASD. Mitral Valve Stable appearing bioprosthetic mitral valve apparatus. Trivial transvalvular insufficiency of the mitral valve. Tricuspid Valve Normal tricuspid valve. Mild tricuspid valve insufficiency. Right ventricular systolic pressure estimated to be 39 mmHg. Aortic Valve Stable appearing bioprosthetic aortic valve apparatus. Pulmonic Valve The pulmonic valve is not well visualized. Great Vessels The aortic root is not well visualized. Pericardium/Pleural Echolucency potentially c/w a moderate pericardial effusion (located primarily posteriorly). There are no echocardiographic indications of cardiac tamponade. Echolucency c/w a large pleural effusion. MMode/2D Measurements & Calculations LVIDd: 2.8 cm IVSd: 0.97 cm LVOT diam: 1.9 cm LVIDs: 1.9 cm LVPWd: 1.2 cm LVOT area: 2.7 cm2 RVDd: 2.8 cm FS: 29.9 % Ao root diam: 2.3 cm LA dimension: 2.7 cm Doppler Measurements & Calculations MV E max donovan: 185.3 cm/sec MV V2 max: 212.2 cm/sec MV P1/2t max donovan: 207.7 cm/sec MV max P.0 mmHg MV P1/2t: 45.4 msec MV V2 mean: 133.2 cm/sec MV dec slope: 1340 cm/sec2 MV mean P.4 mmHg MVA(P1/2t): 4.8 cm2 MV V2 VTI: 32.9 cm MVA(VTI): 1.0 cm2 Ao V2 max: 107.0 cm/sec LV V1 max: 86.5 cm/sec SV(LVOT): 34.4 ml Ao max P.6 mmHg LV V1 max P.0 mmHg Ao V2 mean: 67.7 cm/sec LV V1 mean P.4 mmHg Ao mean P.1 mmHg LV V1 mean: 55.7 cm/sec Ao V2 VTI: 15.0 cm LV V1 VTI: 12.7 cm LOLITA(I,D): 2.3 cm2 LOLITA(V,D): 2.2 cm2 PA V2 max: 114.6 cm/sec TR max donovan: 280.3 cm/sec TR max P.4 mmHg Interpretation Summary The study was technically difficult. Segmental dysfunction with preserved ejection fraction (see wall motion). The estimated ejection fraction is 65 %. Post operative septal motion. Stable appearing bioprosthetic mitral valve apparatus. Trivial transvalvular insufficiency of the mitral valve. Mild tricuspid valve insufficiency. Stable appearing bioprosthetic aortic valve apparatus. Echolucency potentially c/w a moderate pericardial effusion (located primarily posteriorly) There are no echocardiographic indications of cardiac tamponade. Echolucency c/w a large pleural effusion. Right ventricular systolic pressure estimated to be 39 mmHg. Unable to assess diastolic dysfunction. Ordering Physician: Kiet Lira Referring Physician: Criss Leyva M.D. Performed By: Abby Gibson RDCS
[2017-09-21] MEDS: Piperacil/Tazobactam 3.375 GM/50 ML ML IV (20:13)
[2017-09-21] MEDS: 0.9% NaCl Peripheral Flush Adult/Peds IV (20:14)
[2017-09-21 20:26] LABS: Reflex Lactate? Y
[2017-09-21 20:47] LABS: BNP,B-Type NATRIURETIC PEPTIDE 331.7 pg/mL (0-100)
[2017-09-21 20:52] LABS: Lactic Acid 2.2 mmol/L (0.4-2.0)
[2017-09-21 21:26] LABS: M R Staph aureus DNA By PCR Negative (Negative); Specimen Processing Control PASS
[2017-09-21 21:27] LABS: Probe Check PASS
[2017-09-22] VITALS (32 sets, daily range): BP systolic 77–179; BP diastolic 52–96; PULSE 79–91; RESP 16–29; TEMP 36.5–37.7; O2SAT 88–100
[2017-09-22 00:07] LABS: Reflex Lactate? Y
[2017-09-22] MEDS: Furosemide 40 MG/4 ML Vial IV ×3 (00:08→15:13)
[2017-09-22] MEDS: 0.9% NaCl Peripheral Flush Adult/Peds IV ×3 (00:08→15:13)
[2017-09-22 00:10] LABS: Magnesium 1.9 mg/dL (1.6-2.6); Thyroid Stim Hormone (TSH) 4.26 uIU/mL (0.358-3.74)
[2017-09-22 00:15] LABS: Mucous, Urine 0 SEEN /hpf (<or=2+); Squamous Epithelial Cells - UA 0 SEEN /hpf (0-5)
[2017-09-22 00:16] LABS: Color, Urine Yellow (Yellow); Glucose, Dipstick Normal (Normal); Ketone-Dipstick 5 mg/dl (Negative); Leukocyte Esterase-Dipstick Negative /ul (Negative); Nitrite-Dipstick Negative (Negative); Occult Blood-Urine 10 /ul (Negative); Protein-Dipstick 100 mg/dl (Negative); Specific Gravity, Urine 1.025 (1.002-1.030); Urine Bilirubin Dipstick Negative (Negative); Urine Clarity Sl. Cloudy (Clear); Urine Urobilinogen Normal (Normal)
[2017-09-22 00:22] LABS: Bacteria 2+ /hpf (None Seen); Red Blood Cells-Urine 0-5 SEEN /hpf (0-5); White Blood Cells 0-5 SEEN /hpf (0-5)
[2017-09-22] MEDS: CHLORHEXIDINE GLUC 2% CLOTH 1 EACH TOWELETTE TOPICAL (04:08)
[2017-09-22] MEDS: Piperacil/Tazobactam 3.375 GM/50 ML ML IV ×3 (04:08→21:09)
--- NOTE | 2017-09-22 04:15 | CPS ---
pt wanting to take a small break off the Bipap to get his mouth wet. Pt placed on 5L NC and sats dropping into the mid to high 80's. When Bipap put back on, FiO2 needed increased to 40% to help pt recover.
[2017-09-22 04:58] LABS: ALB/GLOB Ratio 0.6 RATIO (0.9-2.4); AST(SGOT) 30 U/L (15-37); Alanine Aminotransfer ALT/SGPT 32 U/L (16-61); Albumin, Serum 2.6 g/dL (3.2-5.0); Alkaline Phosphatase 174 U/L (45-117); Anion Gap 5 (5-15); BUN 19 mg/dL (7-18); BUN/Creat Ratio 27.6 RATIO (10-20); Calcium,Total 8.6 mg/dL (8.5-10.1); Chloride 101 mmol/L (98-107); Creatinine, Serum 0.69 mg/dL (0.70-1.30); EST Glomerular Filtration Rate 124 mL/min (>60); Est Glom Filt Rate - Afr Amer 150 mL/min (>60); Estimated Creatinine Clearance 104.16 ml/min; Globulin 4.7 g/dL (2.2-4.2); Glucose 85 mg/dL (74-106); Potassium 4.2 mmol/L (3.5-5.1); Protein, Total 7.3 g/dL (6.4-8.2); Sodium Level 145 mmol/L (136-145)
[2017-09-22 05:05] LABS: International Normalized Ratio 2.1; Prothrombin Time (Protime)PT. 23.4 SECONDS (11.7-14.9)
[2017-09-22 05:08] LABS: Basophil# 0.02 X10^3/uL; Basophil% 0.1 % (0-1); Eosinophil# 0.07 X10^3/uL; Eosinophils% 0.5 % (0-5); Hematocrit 33.7 % (40-54); Hemoglobin 10.7 g/dl (13.0-16.5); Lymphocyte % 4.9 % (19-41); Mean Corp Hgb Conc 31.8 g/gl (32-36); Mean Corpuscular Hgb 28.5 pg (27.0-32.0); Mean Corpuscular Volume 89.9 fL (80-94); Mean Platelet Vol. 10.7 fl (6.2-12.0); Monocyte# 0.59 X10^3/uL; Monocyte% 4.1 % (0-10); Neutrophil # 12.97 X10^3/uL (2.7-7.7); Neutrophil % 90.1 % (47-70); Platelet Count 365 K/mm3 (150-450); RBC Distribution Width CV 19.9 % (11.6-14.6); RBC Distribution Width SD 64.4 fl (35.1-43.9); Red Blood Count 3.75 M/mm3 (4.6-6.2); White Blood Count 14.4 K/mm3 (4.4-11.0)
[2017-09-22 05:09] LABS: Absolute Nucleated RBC Count 0.11 10^3/uL (0-5); NRBC Flagged by Analyzer 0.8 % (0-5); POSITIVE COUNT NO; POSITIVE DIFFERENTIAL NO; POSITIVE MORPHOLOGY NO
--- NOTE | 2017-09-22 05:55 | EKG12_ITS ---
Test Reason : MORNING EKG Blood Pressure : / mmHG Vent. Rate : 084 BPM Atrial Rate : 084 BPM P-R Int : 224 ms QRS Dur : 128 ms QT Int : 450 ms P-R-T Axes : 082 -02 103 degrees QTc Int : 531 ms Sinus rhythm with 1st degree A-V block Left bundle branch block Abnormal ECG Confirmed by MARTÍNEZ CASON, ALYSHA ([id number]), food editor DIXON LALEN ([id number]) on 09/25/2017 4:03:32 PM Referred By: SHEREEN Confirmed By:ALYSHA SOLIZ MD
[2017-09-22] MEDS: Ipratropium/Albuterol Sulfate 3 ML AMPUL.NEB INHALATION ×4 (06:43→20:22)
--- NOTE | 2017-09-22 06:49 | PCM.CON.CC ---
Reason for Consult Date of Consultation: 09/22/17 Reason for Consultation: Acute on Chronic Respiratory Failure History of Present Illness: The patient is a 62-year-old male, with a history as outlined below, who presented to the emergency department on September 21 at the urging of his home health care nurse with shortness of breath and hypoxia. The patient has a history of Hodgkin's lymphoma status post radiation treatment with extensive malnutrition and cachexia along with recurrent aspiration events. Patient has been followed previously at the [facility] for issues relating to dysphasia. The patient was just admitted to the hospital September 16 - September 20 and treated for aspiration pneumonia. Due to his history of recurrent aspiration events, general surgery was consulted to evaluate the patient for PEG tube placement. On September 19, the patient was taken to the OR and subsequently underwent PEG tube placement by Dr. Sandoval. The patient tolerated the procedure well and was able to be started on tube feeds, which he tolerated without issue. Upon discharge from the hospital, the patient did admit to me that he did take in nutrition by mouth, despite just having had a PEG tube placed. The patient also has a history of chronic hypoxemic respiratory failure and based off of his last 6 minute walk test completed in July 2016, he required 2 L/min of supplemental oxygen with exertion. However, he admits that he does not routinely utilize supplemental oxygen, except for with sleeping at night. During the patient's most recent hospitalization, a modified barium swallow was completed on September 18 which revealed profound oropharyngeal dysphasia. At the time of his last speech therapy evaluation on September 20, the patient was noted to have a strict n.p.o. status. The patient's last surface echocardiogram from December 2016 revealed normal LV size with an ejection fraction of 50%. Pulmonary artery systolic pressure was estimated to be 45 mmHg. On presentation to the emergency department, the patient was noted to be afebrile hemodynamically stable. He was notably hypoxic on room air and required 6 L/min via nasal cannula initially to maintain appropriate oxygen saturations. Laboratory evaluation revealed an elevated white blood cell count to 15,000, which was increased from 8.9 on September 20. INR was noted to be 2.6. It appears an arterial blood gas was obtained after the patient was started on BiPAP therapy 15/6 cm of water and revealed a pH of 7.24 with a PCO2 of 75 and PO2 of 78. Chemistry profile revealed an elevated serum bicarbonate to 35. Serum lactate was mildly elevated to 2.2. BNP was increased to 331. Troponin was negative. Plain film chest x-ray revealed bilateral infiltrates and pleural effusions. The patient was started on IV diuretics along with Zosyn. He was subsequently transferred to the medical intensive care unit for ongoing management. Past Medical History Past Medical History (Chronic Problems): Chronic Problems CHF (congestive heart failure) (Chronic) Hypothyroidism (Chronic) Chronic anticoagulation (Chronic) Status post mitral valve replacement (Chronic) Status post aortic valve replacement (Chronic) Normochromic normocytic anemia (Chronic) Bilateral pleural effusion (Chronic) Atrial fibrillation (Chronic) Pleural effusion (Chronic) Hodgkin's disease in remission (Chronic) Mitral valve regurgitation (Chronic) Aortic valve regurgitation (Chronic) Allergies meloxicam Adverse Reaction (Verified 09/21/17 15:31) Nausea naproxen [From Naprosyn] Adverse Reaction (Verified 09/21/17 15:31) Nausea Home Medications: Ambulatory Orders Medication Instructions Recorded Aspirin [Aspirin, Baby] 81 mg GT DAILY@0800 01/23/16 Levothyroxine [Synthroid] 100 mcg GT DAILY 01/23/16 Amiodarone HCl [Pacerone] 100 mg GT DAILY 01/01/17 Omeprazole 20 mg GT DAILY 01/01/17 Prednisone 5 mg GT DAILY 01/01/17 Amox/Clav 400mg/5ml Susp 875 mg GT BIDCM 09/21/17 [Augmentin Suspension 400mg/5ml] Surgical History: arthroscopy, knee, - - splenectomy for Hodgkin's disease, fracture rt arm, repair of right foot drop, exploratory laparotomy of chest and abdomen for Hodgkin's disease, s/p nasal surgery, bioprosthetic AVR and MVR at [facility] Psychiatric History: No pertinent psych hx Lives: Spouse/ Significant Other Smoking Status: Former smoker Alcohol: None Drugs: None - *Family History Maternal History Items: Cancer - colon cancer Paternal History Items: No pertinent history Review of Systems Constitutional: Reports: Anorexia, Fatigue. Denies: Chills, Fever Eyes: Denies: Blurred vision, Double vision HEENT: Reports: Difficulty Swallowing, Dysphasia Cardiovascular: Denies: Chest Pain, Palpitations Respiratory: Reports: Cough, Shortness of Breath Gastrointestinal: Denies: Abdominal Pain, Nausea, Vomiting Genitourinary: Denies: Dysuria Musculoskeletal: Denies: Joint Pain, Joint Tenderness Skin: Denies: Rash, Wounds Neurological: Reports: Difficulty swallowing Psychiatric: Denies: Anxiety, Depression, Homicidal Ideations, Suicidal Ideations Hematologic/ Lymphatic: Reports: Anemia Objective: The patient's most recent lab work, culture data and imaging studies have all been personally reviewed. Blood and urine cultures are currently pending. - Physical Exam General: Alert, Cooperative, - - Mildly distressed on BiPAP. Current settings are 18/8 cm of water with an FiO2 of 40%. HEENT: Atraumatic, Normocephalic, - - Temporal wasting+ Oral: Dry Mucosa, - - Poor dentition Neck: Supple, No Nodes, Trachea Midline Lungs: No wheeze, Diminished, Rales - L>R, Tachypneic Cardiovascular: Regular rate, Regular Rhythm, Normal S1, Normal S2, No murmurs Abdomen: Bowel Sounds Present, Soft, Non Tender, - - Scaphoid abdomen with PEG tube in place Extremities: No cyanosis, Clubbing, - - Trace bilateral pedal edema Skin: No breakdown Musculoskeletal: Cachexia, Muscle Wasting Lymphatic: No Cervical, Supraclavicular, or Inguinal Adenopathy Neurological: Neuro grossly intact Psych/Mental Status: Normal Affect, Appropriate Vital Signs Temp Pulse Resp BP Pulse Ox 98.8 F 90 21 H 133/82 H 93 09/22/17 06:00 09/22/17 06:00 09/22/17 06:00 09/22/17 06:00 09/22/17 06:00 Oxygen Delivery Method Bi-pap Weight: 140 lb 10.479 oz Body Mass Index (BMI) 18.0 Intake and Output for Last 24 Hours 09/20/17 09/21/17 09/22/17 23:59 23:59 23:59 Intake Total 197.8 / 197.8 Output Total 2575 / 2575 Balance -2377.2 / -2377.2 Laboratory Tests Past 24 Hrs 09/21/17 09/21/17 09/21/17 18:15 19:50 19:50 WBC RBC Hgb Hct MCV MCH MCHC RDW RDW Differential Plt Count MPV Immature Gran % (Auto) Neut % (Auto) Lymph % (Auto) [place] % (Auto) Eos % (Auto) Baso % (Auto) Absolute Neuts (auto) Absolute Lymphs (auto) Total Counted Nucleated RBC % Absolute Retic PT INR Specimen Type ART Sample Site L Radial pH 7.24 L Bicarbonate Actual 32.2 H POC Total CO2 34 Base Excess 5 H O2 Saturation 92 L O2 % 40 ABG pCO2 75.2 H* ABG pO2 78 Percy Test POS Respiration Rate 14 O2 Delivery Device Bi / C PAP EPAP 6 IPAP 15 Blood Gas Notified Whom ED MD Blood Gas Notified Time 545 Sodium Potassium Chloride Carbon Dioxide Anion Gap BUN Creatinine Estim Creat Clear Calc Est GFR (MDRD) Af Amer Est GFR (MDRD) Non-Af BUN/Creatinine Ratio Glucose Lactic Acid 2.2 H Calcium Magnesium Total Bilirubin AST ALT Alkaline Phosphatase Troponin I < 0.015 Total Protein Albumin Globulin Albumin/Globulin Ratio TSH Free T4 Urine Color Urine Clarity Urine pH Ur Specific [place] Urine Protein Urine Glucose (UA) Urine Ketones Urine Occult Blood Urine Nitrite Urine Bilirubin Urine Urobilinogen Ur Leukocyte Esterase Urine RBC Urine WBC Ur Squamous Epith Cells Urine Bacteria Urine Mucus MRSA (PCR) 09/21/17 09/21/17 09/21/17 19:50 23:10 23:10 WBC RBC Hgb Hct MCV MCH MCHC RDW RDW Differential Plt Count MPV Immature Gran % (Auto) Neut % (Auto) Lymph % (Auto) [place] % (Auto) Eos % (Auto) Baso % (Auto) Absolute Neuts (auto) Absolute Lymphs (auto) Total Counted Nucleated RBC % Absolute Retic PT INR Specimen Type Sample Site pH Bicarbonate Actual POC Total CO2 Base Excess O2 Saturation O2 % ABG pCO2 ABG pO2 Percy Test Respiration Rate O2 Delivery Device EPAP IPAP Blood Gas Notified Whom Blood Gas Notified Time Sodium Potassium Chloride Carbon Dioxide Anion Gap BUN Creatinine Estim Creat Clear Calc Est GFR (MDRD) Af Amer Est GFR (MDRD) Non-Af BUN/Creatinine Ratio Glucose Lactic Acid Calcium Magnesium 1.9 Total Bilirubin AST ALT Alkaline Phosphatase Troponin I < 0.015 Total Protein Albumin Globulin Albumin/Globulin Ratio TSH 4.26 H Free T4 1.30 Urine Color Urine Clarity Urine pH Ur Specific [place] Urine Protein Urine Glucose (UA) Urine Ketones Urine Occult Blood Urine Nitrite Urine Bilirubin Urine Urobilinogen Ur Leukocyte Esterase Urine RBC Urine WBC Ur Squamous Epith Cells Urine Bacteria Urine Mucus MRSA (PCR) Negative 09/21/17 09/22/17 09/22/17 23:55 04:10 04:10 WBC 14.4 H RBC 3.75 L Hgb 10.7 L Hct 33.7 L MCV 89.9 MCH 28.5 MCHC 31.8 L RDW 19.9 H RDW Differential 64.4 H Plt Count 365 MPV 10.7 Immature Gran % (Auto) 0.300 Neut % (Auto) 90.1 H Lymph % (Auto) 4.9 L [place] % (Auto) 4.1 Eos % (Auto) 0.5 Baso % (Auto) 0.1 Absolute Neuts (auto) 13.0 H Absolute Lymphs (auto) 0.70 L Total Counted Not Reportable Nucleated RBC % 0.8 Absolute Retic 0.11 PT INR Specimen Type Sample Site pH Bicarbonate Actual POC Total CO2 Base Excess O2 Saturation O2 % ABG pCO2 ABG pO2 Percy Test Respiration Rate O2 Delivery Device EPAP IPAP Blood Gas Notified Whom Blood Gas Notified Time Sodium 145 Potassium 4.2 Chloride 101 Carbon Dioxide 39.0 H Anion Gap 5 BUN 19 H Creatinine 0.69 L Estim Creat Clear Calc 104.16 Est GFR (MDRD) Af Amer 150 Est GFR (MDRD) Non-Af 124 BUN/Creatinine Ratio 27.6 H Glucose 85 Lactic Acid Calcium 8.6 Magnesium Total Bilirubin 0.90 AST 30 ALT 32 Alkaline Phosphatase 174 H Troponin I Total Protein 7.3 Albumin 2.6 L Globulin 4.7 H Albumin/Globulin Ratio 0.6 L TSH Free T4 Urine Color Yellow Urine Clarity Sl. Cloudy Urine pH 6.0 Ur Specific [place] 1.025 Urine Protein 100 H Urine Glucose (UA) Normal Urine Ketones 5 H Urine Occult Blood 10 H Urine Nitrite Negative Urine Bilirubin Negative Urine Urobilinogen Normal Ur Leukocyte Esterase Negative Urine RBC 0-5 SEEN Urine WBC 0-5 SEEN Ur Squamous Epith Cells 0 SEEN Urine Bacteria 2+ Urine Mucus 0 SEEN MRSA (PCR) 09/22/17 04:10 WBC RBC Hgb Hct MCV MCH MCHC RDW RDW Differential Plt Count MPV Immature Gran % (Auto) Neut % (Auto) Lymph % (Auto) [place] % (Auto) Eos % (Auto) Baso % (Auto) Absolute Neuts (auto) Absolute Lymphs (auto) Total Counted Nucleated RBC % Absolute Retic PT 23.4 H INR 2.1 Specimen Type Sample Site pH Bicarbonate Actual POC Total CO2 Base Excess O2 Saturation O2 % ABG pCO2 ABG pO2 Percy Test Respiration Rate O2 Delivery Device EPAP IPAP Blood Gas Notified Whom Blood Gas Notified Time Sodium Potassium Chloride Carbon Dioxide Anion Gap BUN Creatinine Estim Creat Clear Calc Est GFR (MDRD) Af Amer Est GFR (MDRD) Non-Af BUN/Creatinine Ratio Glucose Lactic Acid Calcium Magnesium Total Bilirubin AST ALT Alkaline Phosphatase Troponin I Total Protein Albumin Globulin Albumin/Globulin Ratio TSH Free T4 Urine Color Urine Clarity Urine pH Ur Specific [place] Urine Protein Urine Glucose (UA) Urine Ketones Urine Occult Blood Urine Nitrite Urine Bilirubin Urine Urobilinogen Ur Leukocyte Esterase Urine RBC Urine WBC Ur Squamous Epith Cells Urine Bacteria Urine Mucus MRSA (PCR) Clinical Impression(s) from Imaging Studies Chest X-Ray 09/21/17 15:56 Clinical Impression(s) from Imaging Studies Chest X-Ray 09/21/17 15:56 Assessment/Plan RECOMMENDATIONS: 1. Continue noninvasive positive pressure ventilatory support. Recheck arterial blood gas. 2. Continue broad-spectrum antibiotics, pending repeat infectious workup. 3. Agree with obtaining repeat surface echocardiogram. 4. Patient to remain strict n.p.o. status. 5. Will ask speech therapy to reevaluate patient. 6. Given that the patient has already diuresed over 2 L, recommend de-escalation and diuretic regimen. 7. Check strep and urine Legionella antigens. 8. If the patient wishes to indulge in pleasure feeds as an outpatient, recommend a transition and CODE STATUS to DNR CCA at the very minimum. IMPRESSIONS: 1. Acute hypoxemic and hypercarbic respiratory failure Likely multifactorial in etiology with resolving aspiration pneumonia combined with superimposed pulmonary edema contributing. The patient did admit to me that he did take in nutrition by mouth upon discharge from the hospital, which likely precipitated this entire event, given his history of profound oropharyngeal dysphasia and recurrent aspiration events. The patient will remain strict n.p.o. status. He will be continued on broad-spectrum antibiotics, pending repeat infectious workup. Continue BiPAP at current pressure settings until repeat arterial blood gases obtained. Wean FiO2 to maintain oxygen saturations at or above 88%. Repeat surface echocardiogram is currently pending. The patient has diuresed over 2 L since being admitted to the hospital and placed on IV diuretic regimen. Given this, his Lasix regimen will be de-escalated. 2. Severe sepsis with concern for recurrent aspiration pneumonia While the patient's chest imaging does have evidence of bilateral infiltrates, it does not appear grossly different from previous chest imaging. The patient will be continued on antibiotics to complete his previously prescribed treatment course for aspiration pneumonia, noted during his previous hospital stay. I have a low clinical index suspicion for a new pulmonary infectious process. If preliminary cultures are negative, the patient's antibiotics can be de-escalated back to liquid Augmentin via PEG tube. 3. Presumed heart failure with preserved ejection fraction/pulmonary hypertension Awaiting repeat echocardiogram. Although, suspect that the patient does have an underlying component of diastolic dysfunction with superimposed pulmonary hypertension. He was diuresed aggressively overnight and has put out greater than 2 L of fluid. At this time, recommend de-escalation in his Lasix regimen as prescribed. 4. History of Hodgkin's lymphoma status post radiation treatment resulting in esophageal dysmotility and profound oropharyngeal dysphasia The patient has a history of recurrent aspiration events and was just recently in the hospital, during which time a PEG tube was placed. The patient was supposed to maintain a strict n.p.o. status, but appears to have taken in p.o. nutrition upon discharge from the hospital. 5. Paroxysmal atrial fibrillation/status post aortic mitral valve replacement/hypothyroidism Complicates care, management, recovery and prognosis. Continue baseline anticoagulation regimen and Synthroid. Recommend reevaluation by speech and physical therapy. From my perspective, the patient either needs to accept and be willing to maintain a strict n.p.o. status outside of the hospital bernal or consider a transition in his CODE STATUS to DNR, if he wishes to continue to take in nutrition by mouth. UPDATE: Both myself and speech therapy did speak with the patient and his regarding his current clinical state. I made it very clear to both of them that the patient needed to maintain a strict n.p.o. status and should only receive nutrition via his PEG tube. He is at exceedingly high risk for future aspiration events, with any amount of p.o. intake. He is in agreement at this time to refrain from taking in nutrition by mouth. All future nutritional support will be provided by the patient's PEG tube. TIME: 45 minutes of critical care time, independent of procedures, was spent addressing the patient's acute hypoxemic and hypercarbic respiratory failure, severe sepsis with concern for recurrent aspiration pneumonia, review of all data and collaboration with the care team. ([id number]) Code Visit 9xxxx: [id number] Critical care first hour
--- NOTE | 2017-09-22 09:26 | CASEMGMT ---
Addendum entered by Louis Winston 09/22/17 15:02: If dc this weekend- follow [facility] on chart to resume home health. Original Note: YOLANDA RAZA READMIT NOTE: Previous Admission: 09/16/17-09/20/17 -Aspiration pneumonia, failed swallow evaluation, PEG tube placement. [place] was [place] with TF supplies and [place] [facility] [place] [facility] READMIT: 09/21/17 for Acute Hypoxic and Hypercapnic resp failure. On 40% Bipap, ICU care. YOLANDA RAZA called to [facility]. Notified of pt's admission. Per ICU rounds, Palliative Care is recommended, will speak with pt and his re: this. Kymberly MCDERMOTT RN [facility] Office PH: Brooke GUERRERO PH:
[2017-09-22] MEDS: Amiodarone 200 MG Tablet 100 MG GT (12:32)
[2017-09-22] MEDS: Aspirin 81 MG TAB.CHEW GT (12:34)
[2017-09-22] MEDS: Jevity 1.5 1,000 ML 56 ML GT (15:03)
--- NOTE | 2017-09-22 17:18 | CPS ---
started by nursing
--- NOTE | 2017-09-22 18:36 | PCM.PROGNOTE ---
Subjective: Patient seen and examined today, patient admitted he was drinking liquids at home, he had been advised not to have anything oral when he left the hospital 2 days ago. Patient knows that he has a primary swallowing problem and should be n.p.o. as does his . Patient is on nasal cannula O2 at the present time. - Physical Exam General: Alert, Oriented x3, Cooperative, No apparent distress, Well developed HEENT: Atraumatic, PERRLA, EOMI, Normocephalic Oral: Moist Mucosa Neck: Supple, No JVD, No Nuchal Rigidity, Trachea Midline, Thyroid Normal Size and Texture Lungs: Clear to auscultation, Normal air movement, No rhonchi, No wheeze, No rales Cardiovascular: Regular rate, Regular Rhythm, Normal S1, Normal S2, No murmurs, No Ectopic Activity, PMI Normal, No rub noted, No Gallop Abdomen: Bowel Sounds Present, Soft, Non Tender, Non-Distended, - - PEG tube in place Extremities: No clubbing, No cyanosis, No edema, Capillary Refill Less than 3 Seconds Skin: No rashes, No breakdown Musculoskeletal: No Tenderness to Palpation of Joints or Extremities Neurological: Cranial nerves II-XII grossly intact, Neuro grossly intact, Sensory exam intact to light touch and pain, Coordination normal Psych/Mental Status: Normal Affect, Appropriate, Alert and oriented to time, place, person, mood and affect Vital Signs Temp Pulse Resp BP Pulse Ox 98.9 F 90 18 147/67 H 95 09/22/17 17:00 09/22/17 17:00 09/22/17 17:00 09/22/17 17:00 09/22/17 17:00 Oxygen Flow Rate (L/min) 5 Oxygen Delivery Method Nasal Cannula Weight: 63.8 kg Body Mass Index (BMI) 18.0 Intake and Output for Last 24 Hours 09/20/17 09/21/17 09/22/17 23:59 23:59 23:59 Intake Total 684.8 / 684.8 Output Total 4675 / 4675 Balance -3990.2 / -3990.2 Microbiology Past 72 Hours 09/22/17 10:50 Respiratory Panel (PCR) - Final Mucosa - Nasopharyngeal Laboratory Tests Past 24 Hrs 09/21/17 09/21/17 09/21/17 19:50 19:50 19:50 WBC RBC Hgb Hct MCV MCH MCHC RDW RDW Differential Plt Count MPV Immature Gran % (Auto) Neut % (Auto) Lymph % (Auto) [place] % (Auto) Eos % (Auto) Baso % (Auto) Absolute Neuts (auto) Absolute Lymphs (auto) Total Counted Nucleated RBC % Absolute Retic PT INR Sodium Potassium Chloride Carbon Dioxide Anion Gap BUN Creatinine Estim Creat Clear Calc Est GFR (MDRD) Af Amer Est GFR (MDRD) Non-Af BUN/Creatinine Ratio Glucose Lactic Acid 2.2 H Calcium Magnesium Total Bilirubin AST ALT Alkaline Phosphatase Troponin I < 0.015 Total Protein Albumin Globulin Albumin/Globulin Ratio TSH Free T4 Urine Color Urine Clarity Urine pH Ur Specific [place] Urine Protein Urine Glucose (UA) Urine Ketones Urine Occult Blood Urine Nitrite Urine Bilirubin Urine Urobilinogen Ur Leukocyte Esterase Urine RBC Urine WBC Ur Squamous Epith Cells Urine Bacteria Urine Mucus MRSA (PCR) Negative 09/21/17 09/21/17 09/21/17 23:10 23:10 23:55 WBC RBC Hgb Hct MCV MCH MCHC RDW RDW Differential Plt Count MPV Immature Gran % (Auto) Neut % (Auto) Lymph % (Auto) [place] % (Auto) Eos % (Auto) Baso % (Auto) Absolute Neuts (auto) Absolute Lymphs (auto) Total Counted Nucleated RBC % Absolute Retic PT INR Sodium Potassium Chloride Carbon Dioxide Anion Gap BUN Creatinine Estim Creat Clear Calc Est GFR (MDRD) Af Amer Est GFR (MDRD) Non-Af BUN/Creatinine Ratio Glucose Lactic Acid Calcium Magnesium 1.9 Total Bilirubin AST ALT Alkaline Phosphatase Troponin I < 0.015 Total Protein Albumin Globulin Albumin/Globulin Ratio TSH 4.26 H Free T4 1.30 Urine Color Yellow Urine Clarity Sl. Cloudy Urine pH 6.0 Ur Specific [place] 1.025 Urine Protein 100 H Urine Glucose (UA) Normal Urine Ketones 5 H Urine Occult Blood 10 H Urine Nitrite Negative Urine Bilirubin Negative Urine Urobilinogen Normal Ur Leukocyte Esterase Negative Urine RBC 0-5 SEEN Urine WBC 0-5 SEEN Ur Squamous Epith Cells 0 SEEN Urine Bacteria 2+ Urine Mucus 0 SEEN MRSA (PCR) 09/22/17 09/22/17 09/22/17 04:10 04:10 04:10 WBC 14.4 H RBC 3.75 L Hgb 10.7 L Hct 33.7 L MCV 89.9 MCH 28.5 MCHC 31.8 L RDW 19.9 H RDW Differential 64.4 H Plt Count 365 MPV 10.7 Immature Gran % (Auto) 0.300 Neut % (Auto) 90.1 H Lymph % (Auto) 4.9 L [place] % (Auto) 4.1 Eos % (Auto) 0.5 Baso % (Auto) 0.1 Absolute Neuts (auto) 13.0 H Absolute Lymphs (auto) 0.70 L Total Counted Not Reportable Nucleated RBC % 0.8 Absolute Retic 0.11 PT 23.4 H INR 2.1 Sodium 145 Potassium 4.2 Chloride 101 Carbon Dioxide 39.0 H Anion Gap 5 BUN 19 H Creatinine 0.69 L Estim Creat Clear Calc 104.16 Est GFR (MDRD) Af Amer 150 Est GFR (MDRD) Non-Af 124 BUN/Creatinine Ratio 27.6 H Glucose 85 Lactic Acid Calcium 8.6 Magnesium Total Bilirubin 0.90 AST 30 ALT 32 Alkaline Phosphatase 174 H Troponin I Total Protein 7.3 Albumin 2.6 L Globulin 4.7 H Albumin/Globulin Ratio 0.6 L TSH Free T4 Urine Color Urine Clarity Urine pH Ur Specific [place] Urine Protein Urine Glucose (UA) Urine Ketones Urine Occult Blood Urine Nitrite Urine Bilirubin Urine Urobilinogen Ur Leukocyte Esterase Urine RBC Urine WBC Ur Squamous Epith Cells Urine Bacteria Urine Mucus MRSA (PCR) Medical Necessity - Tobacco Use Smoking Status: Former smoker Assessment/Plan All Active Problems Dysphasia (Acute) Aspiration pneumonia due to food (regurgitated) (Acute) #1 acute combined respiratory failure secondary to a combination of acute diastolic congestive heart failure and aspiration pneumonia-continue to monitor O2 sat, aerosol treatments will be administered, patient was given IV Lasix, echocardiogram showed preserved ejection fraction #2 severe sepsis secondary to acute aspiration pneumonia-continue present antibiotics #3 acute aspiration pneumonia-due to patient noncompliance with n.p.o. 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 #5 severe protein and caloric malnutrition #6 Proximal atrial fibrillation-patient on Coumadin chronically #7 mild pulmonary hypertension #8 noncompliance with medical regimen #9 valvular heart disease-bioprosthetic valves #10 hypothyroidism Code Visit Inpatient E&M: 70373 Subs Hosp L2
[2017-09-23] VITALS (24 sets, daily range): BP systolic 90–143; BP diastolic 49–89; PULSE 82–88; RESP 15–21; TEMP 36.4–37.3; O2SAT 88–100
[2017-09-23] MEDS: Piperacil/Tazobactam 3.375 GM/50 ML ML IV (04:44)
[2017-09-23] MEDS: Levothyroxine 100 MCG Tablet GT (05:54)
[2017-09-23] MEDS: Ipratropium/Albuterol Sulfate 3 ML AMPUL.NEB INHALATION ×4 (06:41→19:22)
--- NOTE | 2017-09-23 06:48 | PCM.PN.INT ---
Subjective: The patient was seen and examined at the bedside this morning. Events from the last 24 hours have been reviewed. The patient is currently afebrile, hemodynamically stable and maintaining appropriate oxygen saturations on 4 L/min via nasal cannula. The patient has remained strict n.p.o. status and has been tolerating tube feeds. He reports no significant complaints this morning. Objective: The patient's most recent lab work, culture data and imaging studies have all been personally reviewed. Strep and urine Legionella antigens were both negative. Respiratory viral panel was negative. Blood and urine cultures are currently pending. Surface echocardiogram revealed segmental dysfunction with preserved ejection fraction of 65%. Right ventricular systolic pressure was estimated to be 39 mmHg. General: Alert, Oriented x3, Cooperative, No apparent distress HEENT: Atraumatic, PERRLA, Normocephalic Oral: No Gingival or Mucosal Lesions/ Ulcerations Neck: Supple, No Nodes, Trachea Midline Lungs: No rhonchi, No wheeze, No rales, Diminished Cardiovascular: Regular rate, Regular Rhythm, Normal S1 Abdomen: Bowel Sounds Present, Soft, Non Tender, - - +PEG (C/D/I). Scaphoid appearing abdomen Extremities: No clubbing, No cyanosis, - - Trace lower extremity edema Skin: - - No significant change from previous. Musculoskeletal: Cachexia, Muscle Wasting Lymphatic: No Cervical, Supraclavicular, or Inguinal Adenopathy Neurological: Neuro grossly intact Psych/Mental Status: Alert and oriented to time, place, person, mood and affect Vital Signs Temp Pulse Resp BP Pulse Ox 99.1 F 83 17 135/89 H 89 09/23/17 05:00 09/23/17 06:00 09/23/17 06:00 09/23/17 06:00 09/23/17 06:00 Oxygen Flow Rate (L/min) 4 Oxygen Delivery Method Nasal Cannula Weight: 134 lb 0.657 oz Body Mass Index (BMI) 18.0 Intake and Output for Last 24 Hours 09/21/17 09/22/17 09/23/17 23:59 23:59 23:59 Intake Total 1085.8 / 1085.8 392 / 392 Output Total 5075 / 5075 400 / 400 Balance -3989.2 / -3989.2 -8 / -8 Labs (Last 48 Hours) 09/21/17 09/21/17 09/21/17 18:15 19:50 19:50 WBC RBC Hgb Hct MCV MCH MCHC RDW RDW Differential Plt Count MPV Immature Gran % (Auto) Neut % (Auto) Lymph % (Auto) [place] % (Auto) Eos % (Auto) Baso % (Auto) Absolute Neuts (auto) Absolute Lymphs (auto) Total Counted Nucleated RBC % Absolute Retic PT INR Specimen Type ART Sample Site L Radial pH 7.24 L Bicarbonate Actual 32.2 H POC Total CO2 34 Base Excess 5 H O2 Saturation 92 L O2 % 40 ABG pCO2 75.2 H* ABG pO2 78 Percy Test POS Respiration Rate 14 O2 Delivery Device Bi / C PAP EPAP 6 IPAP 15 Blood Gas Notified Whom ED MD Blood Gas Notified Time 545 Sodium Potassium Chloride Carbon Dioxide Anion Gap BUN Creatinine Estim Creat Clear Calc Est GFR (MDRD) Af Amer Est GFR (MDRD) Non-Af BUN/Creatinine Ratio Glucose Lactic Acid 2.2 H Calcium Magnesium Total Bilirubin AST ALT Alkaline Phosphatase Troponin I < 0.015 Total Protein Albumin Globulin Albumin/Globulin Ratio TSH Free T4 Urine Color Urine Clarity Urine pH Ur Specific [place] Urine Protein Urine Glucose (UA) Urine Ketones Urine Occult Blood Urine Nitrite Urine Bilirubin Urine Urobilinogen Ur Leukocyte Esterase Urine RBC Urine WBC Ur Squamous Epith Cells Urine Bacteria Urine Mucus MRSA (PCR) 09/21/17 09/21/17 09/21/17 19:50 23:10 23:10 WBC RBC Hgb Hct MCV MCH MCHC RDW RDW Differential Plt Count MPV Immature Gran % (Auto) Neut % (Auto) Lymph % (Auto) [place] % (Auto) Eos % (Auto) Baso % (Auto) Absolute Neuts (auto) Absolute Lymphs (auto) Total Counted Nucleated RBC % Absolute Retic PT INR Specimen Type Sample Site pH Bicarbonate Actual POC Total CO2 Base Excess O2 Saturation O2 % ABG pCO2 ABG pO2 Percy Test Respiration Rate O2 Delivery Device EPAP IPAP Blood Gas Notified Whom Blood Gas Notified Time Sodium Potassium Chloride Carbon Dioxide Anion Gap BUN Creatinine Estim Creat Clear Calc Est GFR (MDRD) Af Amer Est GFR (MDRD) Non-Af BUN/Creatinine Ratio Glucose Lactic Acid Calcium Magnesium 1.9 Total Bilirubin AST ALT Alkaline Phosphatase Troponin I < 0.015 Total Protein Albumin Globulin Albumin/Globulin Ratio TSH 4.26 H Free T4 1.30 Urine Color Urine Clarity Urine pH Ur Specific [place] Urine Protein Urine Glucose (UA) Urine Ketones Urine Occult Blood Urine Nitrite Urine Bilirubin Urine Urobilinogen Ur Leukocyte Esterase Urine RBC Urine WBC Ur Squamous Epith Cells Urine Bacteria Urine Mucus MRSA (PCR) Negative 09/21/17 09/22/17 09/22/17 23:55 04:10 04:10 WBC 14.4 H RBC 3.75 L Hgb 10.7 L Hct 33.7 L MCV 89.9 MCH 28.5 MCHC 31.8 L RDW 19.9 H RDW Differential 64.4 H Plt Count 365 MPV 10.7 Immature Gran % (Auto) 0.300 Neut % (Auto) 90.1 H Lymph % (Auto) 4.9 L [place] % (Auto) 4.1 Eos % (Auto) 0.5 Baso % (Auto) 0.1 Absolute Neuts (auto) 13.0 H Absolute Lymphs (auto) 0.70 L Total Counted Not Reportable Nucleated RBC % 0.8 Absolute Retic 0.11 PT INR Specimen Type Sample Site pH Bicarbonate Actual POC Total CO2 Base Excess O2 Saturation O2 % ABG pCO2 ABG pO2 Percy Test Respiration Rate O2 Delivery Device EPAP IPAP Blood Gas Notified Whom Blood Gas Notified Time Sodium 145 Potassium 4.2 Chloride 101 Carbon Dioxide 39.0 H Anion Gap 5 BUN 19 H Creatinine 0.69 L Estim Creat Clear Calc 104.16 Est GFR (MDRD) Af Amer 150 Est GFR (MDRD) Non-Af 124 BUN/Creatinine Ratio 27.6 H Glucose 85 Lactic Acid Calcium 8.6 Magnesium Total Bilirubin 0.90 AST 30 ALT 32 Alkaline Phosphatase 174 H Troponin I Total Protein 7.3 Albumin 2.6 L Globulin 4.7 H Albumin/Globulin Ratio 0.6 L TSH Free T4 Urine Color Yellow Urine Clarity Sl. Cloudy Urine pH 6.0 Ur Specific [place] 1.025 Urine Protein 100 H Urine Glucose (UA) Normal Urine Ketones 5 H Urine Occult Blood 10 H Urine Nitrite Negative Urine Bilirubin Negative Urine Urobilinogen Normal Ur Leukocyte Esterase Negative Urine RBC 0-5 SEEN Urine WBC 0-5 SEEN Ur Squamous Epith Cells 0 SEEN Urine Bacteria 2+ Urine Mucus 0 SEEN MRSA (PCR) 09/22/17 04:10 WBC RBC Hgb Hct MCV MCH MCHC RDW RDW Differential Plt Count MPV Immature Gran % (Auto) Neut % (Auto) Lymph % (Auto) [place] % (Auto) Eos % (Auto) Baso % (Auto) Absolute Neuts (auto) Absolute Lymphs (auto) Total Counted Nucleated RBC % Absolute Retic PT 23.4 H INR 2.1 Specimen Type Sample Site pH Bicarbonate Actual POC Total CO2 Base Excess O2 Saturation O2 % ABG pCO2 ABG pO2 Percy Test Respiration Rate O2 Delivery Device EPAP IPAP Blood Gas Notified Whom Blood Gas Notified Time Sodium Potassium Chloride Carbon Dioxide Anion Gap BUN Creatinine Estim Creat Clear Calc Est GFR (MDRD) Af Amer Est GFR (MDRD) Non-Af BUN/Creatinine Ratio Glucose Lactic Acid Calcium Magnesium Total Bilirubin AST ALT Alkaline Phosphatase Troponin I Total Protein Albumin Globulin Albumin/Globulin Ratio TSH Free T4 Urine Color Urine Clarity Urine pH Ur Specific [place] Urine Protein Urine Glucose (UA) Urine Ketones Urine Occult Blood Urine Nitrite Urine Bilirubin Urine Urobilinogen Ur Leukocyte Esterase Urine RBC Urine WBC Ur Squamous Epith Cells Urine Bacteria Urine Mucus MRSA (PCR) Microbiology 09/22/17 18:00 Urine Catheter - Busch Streptococcus pneumoniae Antigen (M - Final 09/22/17 18:00 Urine Catheter - Busch Legionella Antigen - Final 09/22/17 10:50 Mucosa - Nasopharyngeal Respiratory Panel (PCR) - Final Clinical Impression(s) from Imaging Studies Chest X-Ray 09/21/17 15:56 Medical Necessity - Tobacco Use Smoking Status: Former smoker Assessment/Plan All Active Problems Dysphasia (Acute) Aspiration pneumonia due to food (regurgitated) (Acute) RECOMMENDATIONS: 1. Wean supplemental oxygen to maintain saturations at or above 90%. 2. Transition from IV Zosyn back to Augmentin suspension to complete the previously prescribed treatment course for aspiration pneumonia. 3. Patient to remain strict n.p.o. status. 4. Continue gentle diuresis as tolerated. 5. Encourage incentive spirometer use and mobilize patient as tolerated. 6. The patient should be scheduled for a follow-up office visit in the pulmonary medicine clinic within 2 weeks of his discharge from the hospital. IMPRESSIONS: 1. Acute hypoxemic and hypercarbic respiratory failure Likely multifactorial in etiology with resolving aspiration pneumonia combined with superimposed pulmonary edema contributing. The patient did admit to me that he did take in nutrition by mouth upon discharge from the hospital, which likely precipitated this entire event, given his history of profound oropharyngeal dysphasia and recurrent aspiration events. The patient will remain strict n.p.o. status. IV Zosyn can be transitioned back to Augmentin to complete his previously prescribed regimen for aspiration pneumonia. Wean supplemental oxygen to maintain saturations at or above 90%. Continue gentle diuresis as ordered. Encourage incentive spirometer use and mobilize patient as tolerated. 2. Severe sepsis with concern for recurrent aspiration pneumonia While the patient's chest imaging does have evidence of bilateral infiltrates, it does not appear grossly different from previous chest imaging. The patient will be continued on antibiotics to complete his previously prescribed treatment course for aspiration pneumonia, noted during his previous hospital stay. I have a low clinical index suspicion for a new pulmonary infectious process. 3. Presumed heart failure with preserved ejection fraction/pulmonary hypertension The patient does have an underlying component of systolic dysfunction with superimposed pulmonary hypertension. Continue gentle diuresis with Lasix as ordered. 4. History of Hodgkin's lymphoma status post radiation treatment resulting in esophageal dysmotility and profound oropharyngeal dysphasia The patient has a history of recurrent aspiration events and was just recently in the hospital, during which time a PEG tube was placed. The patient was supposed to maintain a strict n.p.o. status, but appears to have taken in p.o. nutrition upon discharge from the hospital. Following a lengthy discussion with the patient and his , the patient is now in agreement to maintain a strict n.p.o. status from this point forward, with continuous tube feeds for nutritional support. 5. Paroxysmal atrial fibrillation/status post aortic mitral valve replacement/hypothyroidism Complicates care, management, recovery and prognosis. Continue baseline anticoagulation regimen and Synthroid. This note was generated with [employer] dictation software. It may contain incorrect words, spelling, and punctuation that were not noted in checking the note before signing. DISPOSITION: The patient is medically stable for transfer out of the intensive care unit. Code Visit Inpatient E&M: 71599 [facility] L3
--- NOTE | 2017-09-23 08:06 | PCM.PN.HOSP ---
Subjective: No new events. Patient states that he is currently on oxygen at home after his most recent discharge. Vitals/I&O's: Vital Signs Temp Pulse Resp BP Pulse Ox 37.3 C 88 18 135/89 H 96 09/23/17 05:00 09/23/17 07:06 09/23/17 07:06 09/23/17 06:00 09/23/17 07:06 Oxygen Flow Rate (L/min) 3 Oxygen Delivery Method Nasal Cannula Weight: 60.8 kg Body Mass Index (BMI) 18.0 Intake and Output for Last 24 Hours 09/21/17 09/22/17 09/23/17 23:59 23:59 23:59 Intake Total 1085.8 / 1085.8 392 / 392 Output Total 5075 / 5075 400 / 400 Balance -3989.2 / -3989.2 -8 / -8 General: Alert, No apparent distress, - - Cachectic. Afebrile. No respiratory distress. No conversational dyspnea. HEENT: Atraumatic, Normocephalic Neck: No Nodes, Thyroid Normal Size and Texture Lungs: Clear to auscultation, Diminished Cardiovascular: Regular rate, Regular Rhythm, Normal S1, Normal S2, No murmurs Abdomen: Bowel Sounds Present, Soft, Non Tender, Non-Distended, No Hepato-splenomegaly Extremities: No edema, No Calf Tenderness Skin: No rashes, No breakdown Musculoskeletal: Cachexia, Muscle Wasting Neurological: Sensory exam intact to light touch and pain, - - DTRs 1 out of 4 in patellar reflexes bilaterally Psych/Mental Status: Normal Affect, Appropriate Microbiology Past 72 Hours 09/22/17 18:00 Urine Catheter - Busch Streptococcus pneumoniae Antigen (M - Final 09/22/17 18:00 Urine Catheter - Busch Legionella Antigen - Final 09/22/17 10:50 Mucosa - Nasopharyngeal Respiratory Panel (PCR) - Final Current Medications Albuterol Sulfate (Ventolin Aerosols) 2.5 mg INHALATION Q2H PRN PRN PRN Reason: Shortness of breath, wheezing Albuterol/Ipratropium (Duoneb) 3 ml INHALATION Q4HWA.RT [facility] Last Admin: 09/23/17 06:41 Dose: 3 ml Amiodarone HCl (Cordarone) 100 mg GT DAILY [facility] Last Admin: 09/22/17 12:32 Dose: 100 mg Aspirin (Aspirin, Baby) 81 mg GT DAILY@0800 [facility] Last Admin: 09/22/17 12:34 Dose: 81 mg Chlorhexidine Gluconate () 1 each TOPICAL DAILY [facility] Last Admin: 09/22/17 04:08 Dose: 1 each Furosemide (Lasix) 40 mg IV DAILY [facility] Last Admin: 09/22/17 15:13 Dose: 40 mg Famotidine 20 mg/ Sodium (Chloride) 10 mls @ 300 mls/hr IV Q12 [facility] Last Admin: 09/22/17 21:06 Dose: 300 mls/hr Piperacillin Sod/Tazobactam Sod (Zosyn) 3.375 gm in 50 mls @ 12.5 mls/hr IV Q8@0400,1200,2000 [facility] Last Admin: 09/23/17 04:44 Dose: 12.5 mls/hr Enteral Nutritional Formula (Jevity 1.5) 1,000 mls @ 56 mls/hr GT .[id number] [facility] Last Admin: 09/23/17 04:50 Dose: Not Given Levothyroxine Sodium (Synthroid) 100 mcg GT DAILY@0600 [facility] Last Admin: 09/23/17 05:54 Dose: 100 mcg Magnesium Hydroxide (Milk Of Magnesia) 30 ml PO DAILY PRN PRN PRN Reason: Constipation Morphine Sulfate () 1 - 2 mg IV Q4H PRN PRN PRN Reason: Moderate Pain (pain scale 4-5) Ondansetron HCl (Zofran) 4 mg IV Q8H PRN PRN PRN Reason: Nausea Sodium Chloride () 5 - 30 ml IV UD PRN PRN Reason: SALINE FLUSH Last Admin: 09/22/17 15:13 Dose: 10 ml Medical Necessity - Tobacco Use Smoking Status: Former smoker Assessment/Plan All Active Problems Dysphasia (Acute) Aspiration pneumonia due to food (regurgitated) (Acute) 1. Acute hypoxic and hypercapnic respiratory failure Secondary to recurrent aspiration pneumonia Patient had dietary indiscretion meaning that he ate after his most recent discharge. Patient states that he was not informed as such. Dr. Dumont has discussed with the patient and his about strict n.p.o. patient wishes to be full CODE STATUS or pleasure feeds if he wishes to her to hospice level. Patient wishes to be full CODE STATUS and therefore nothing by mouth. Wean oxygen as tolerated Patient does have oxygen at home 2. Aspiration pneumonia Antibiotics have been de-escalated to the Augmentin that he was on previously and will continue with that course of antibiotics he was previously prescribed 3. Dysphagia Secondary to pharyngeal esophageal dysphagia secondary to prior Hodgkin's disease status post radiation Patient understands that he cannot eat by mouth because any food or liquids may be aspirated into his lungs Patient asking about juice and Gatorade down his PEG tube I discouraged both of those as there is really no central tunnel qualities out of either those other than providing sugar. If any liquids to go down his tube should just be water. Additionally patient will continue with his tube feeds which is currently on a continuous infusion and then trans-be transitioned over to bolus feeds. Patient also started to take a multivitamin as well. 4. Severe sepsis Present on admission Secondary to aspiration pneumonia 5. DVT prophylaxis with SCDs Transfer out of the ICU Discontinue Busch catheter Code Visit Inpatient E&M: 69612 [facility] H[facility] L2
--- NOTE | 2017-09-23 08:14 | PN_ITS ---
Subjective: No new events. Patient states that he is currently on oxygen at home after his most recent discharge. Vitals/I&O's: Vital Signs Temp Pulse Resp BP Pulse Ox 37.3 C 88 18 135/89 H 96 09/23/17 05:00 09/23/17 07:06 09/23/17 07:06 09/23/17 06:00 09/23/17 07:06 Oxygen Flow Rate (L/min) 3 Oxygen Delivery Method Nasal Cannula Weight: 60.8 kg Body Mass Index (BMI) 18.0 Intake and Output for Last 24 Hours 09/21/17 09/22/17 09/23/17 23:59 23:59 23:59 Intake Total 1085.8 / 1085.8 392 / 392 Output Total 5075 / 5075 400 / 400 Balance -3989.2 / -3989.2 -8 / -8 General: Alert, No apparent distress, - - Cachectic. Afebrile. No respiratory distress. No conversational dyspnea. HEENT: Atraumatic, Normocephalic Neck: No Nodes, Thyroid Normal Size and Texture Lungs: Clear to auscultation, Diminished Cardiovascular: Regular rate, Regular Rhythm, Normal S1, Normal S2, No murmurs Abdomen: Bowel Sounds Present, Soft, Non Tender, Non-Distended, No Hepato- splenomegaly Extremities: No edema, No Calf Tenderness Skin: No rashes, No breakdown Musculoskeletal: Cachexia, Muscle Wasting Neurological: Sensory exam intact to light touch and pain, - - DTRs 1 out of 4 in patellar reflexes bilaterally Psych/Mental Status: Normal Affect, Appropriate Microbiology Past 72 Hours 09/22/17 18:00 Urine Catheter - Busch Streptococcus pneumoniae Antigen (M - Final 09/22/17 18:00 Urine Catheter - Busch Legionella Antigen - Final 09/22/17 10:50 Mucosa - Nasopharyngeal Respiratory Panel (PCR) - Final Current Medications Albuterol Sulfate (Ventolin Aerosols) 2.5 mg INHALATION Q2H PRN PRN PRN Reason: Shortness of breath, wheezing Albuterol/Ipratropium (Duoneb) 3 ml INHALATION Q4HWA.RT [facility] Last Admin: 09/23/17 06:41 Dose: 3 ml Amiodarone HCl (Cordarone) 100 mg GT DAILY [facility] Last Admin: 09/22/17 12:32 Dose: 100 mg Aspirin (Aspirin, Baby) 81 mg GT DAILY@0800 [facility] Last Admin: 09/22/17 12:34 Dose: 81 mg Chlorhexidine Gluconate () 1 each TOPICAL DAILY [facility] Last Admin: 09/22/17 04:08 Dose: 1 each Furosemide (Lasix) 40 mg IV DAILY [facility] Last Admin: 09/22/17 15:13 Dose: 40 mg Famotidine 20 mg/ Sodium (Chloride) 10 mls @ 300 mls/hr IV Q12 [facility] Last Admin: 09/22/17 21:06 Dose: 300 mls/hr Piperacillin Sod/Tazobactam Sod (Zosyn) 3.375 gm in 50 mls @ 12.5 mls/hr IV Q8@ 0400,1200,2000 [facility] Last Admin: 09/23/17 04:44 Dose: 12.5 mls/hr Enteral Nutritional Formula (Jevity 1.5) 1,000 mls @ 56 mls/hr GT .[id number] [facility] Last Admin: 09/23/17 04:50 Dose: Not Given Levothyroxine Sodium (Synthroid) 100 mcg GT DAILY@0600 [facility] Last Admin: 09/23/17 05:54 Dose: 100 mcg Magnesium Hydroxide (Milk Of Magnesia) 30 ml PO DAILY PRN PRN PRN Reason: Constipation Morphine Sulfate () 1 - 2 mg IV Q4H PRN PRN PRN Reason: Moderate Pain (pain scale 4-5) Ondansetron HCl (Zofran) 4 mg IV Q8H PRN PRN PRN Reason: Nausea Sodium Chloride () 5 - 30 ml IV UD PRN PRN Reason: SALINE FLUSH Last Admin: 09/22/17 15:13 Dose: 10 ml Medical Necessity - Tobacco Use Smoking Status: Former smoker Assessment/Plan All Active Problems Dysphasia (Acute) Aspiration pneumonia due to food (regurgitated) (Acute) 1. Acute hypoxic and hypercapnic respiratory failure * Secondary to recurrent aspiration pneumonia * Patient had dietary indiscretion meaning that he ate after his most recent discharge. Patient states that he was not informed as such. Dr. Dumont has discussed with the patient and his about strict n.p.o. patient wishes to be full CODE STATUS or pleasure feeds if he wishes to her to hospice level. Patient wishes to be full CODE STATUS and therefore nothing by mouth. * Wean oxygen as tolerated * Patient does have oxygen at home 2. Aspiration pneumonia * Antibiotics have been de-escalated to the Augmentin that he was on previously and will continue with that course of antibiotics he was previously prescribed 3. Dysphagia * Secondary to pharyngeal esophageal dysphagia secondary to prior Hodgkin's disease status post radiation * Patient understands that he cannot eat by mouth because any food or liquids may be aspirated into his lungs * Patient asking about juice and Gatorade down his PEG tube I discouraged both of those as there is really no central tunnel qualities out of either those other than providing sugar. * If any liquids to go down his tube should just be water. Additionally patient will continue with his tube feeds which is currently on a continuous infusion and then trans-be transitioned over to bolus feeds. Patient also started to take a multivitamin as well. 4. Severe sepsis * Present on admission * Secondary to aspiration pneumonia 5. DVT prophylaxis with SCDs Transfer out of the ICU Discontinue Busch catheter Code Visit Inpatient E&M: [id number] Subs Hosp L2
[2017-09-23] MEDS: Aspirin 81 MG TAB.CHEW GT (09:56)
[2017-09-23] MEDS: Amiodarone 200 MG Tablet 100 MG GT (09:57)
[2017-09-23] MEDS: Furosemide 40 MG Tablet GT (09:57)
[2017-09-23] MEDS: Famotidine 20 MG Tablet GT ×2 (09:57→21:05)
[2017-09-23] MEDS: Amox/Clav 400mg/5ml Susp 800 MG GT ×2 (10:06→21:05)
[2017-09-23] MEDS: Jevity 1.5 1,000 ML 50 ML GT (15:01)
[2017-09-24] VITALS (25 sets, daily range): BP systolic 80–125; BP diastolic 39–61; PULSE 81–94; RESP 16–32; TEMP 36.6–37.3; O2SAT 86–95
[2017-09-24] MEDS: Sodium Chloride 0.65% 1 SPRAY SPRAY.BTL 2 SPRAY NASAL ×3 (00:11→21:11)
[2017-09-24] MEDS: Ipratropium/Albuterol Sulfate 3 ML AMPUL.NEB INHALATION ×5 (03:19→20:51)
[2017-09-24 06:29] LABS: BUN 28 mg/dL (7-18); BUN/Creat Ratio 33.1 RATIO (10-20); Calcium,Total 8.6 mg/dL (8.5-10.1); Carbon Dioxide > 45.0 mmol/L (21.0-32.0); Chloride 91 mmol/L (98-107); Creatinine, Serum 0.85 mg/dL (0.70-1.30); EST Glomerular Filtration Rate 98 mL/min (>60); Est Glom Filt Rate - Afr Amer 118 mL/min (>60); Estimated Creatinine Clearance 76.68 ml/min; Glucose 123 mg/dL (74-106); Potassium 3.7 mmol/L (3.5-5.1); Sodium Level 141 mmol/L (136-145)
[2017-09-24] MEDS: Levothyroxine 100 MCG Tablet GT (06:36)
[2017-09-24 06:43] LABS: Absolute Lymphocyte Count 0.64 X10^3/ul (0.83-4.51); Absolute Neutrophil Count 8.8 X10^3/uL (2.0-7.7); Basophil# 0.02 X10^3/uL; Basophil% 0.2 % (0-1); Eosinophil# 0.11 X10^3/uL; Eosinophils% 1.1 % (0-5); Hematocrit 33.9 % (40-54); Hemoglobin 10.5 g/dl (13.0-16.5); Lymphocyte # 0.64 X10^3/ul (4.0); Lymphocyte % 6.3 % (19-41); Mean Corpuscular Hgb 27.9 pg (27.0-32.0); Mean Corpuscular Volume 90.2 fL (80-94); Mean Platelet Vol. 10.3 fl (6.2-12.0); Monocyte# 0.55 X10^3/uL; Monocyte% 5.4 % (0-10); Neutrophil # 8.79 X10^3/uL (2.7-7.7); Neutrophil % 86.9 % (47-70); Platelet Count 360 K/mm3 (150-450); RBC Distribution Width CV 19.1 % (11.6-14.6); RBC Distribution Width SD 62.3 fl (35.1-43.9); Red Blood Count 3.76 M/mm3 (4.6-6.2); White Blood Count 10.1 K/mm3 (4.4-11.0)
--- NOTE | 2017-09-24 06:45 | NURSING ---
Resp. therapy aware of blood gas orders.
[2017-09-24 06:46] LABS: POSITIVE COUNT NO; POSITIVE DIFFERENTIAL NO; POSITIVE MORPHOLOGY NO
[2017-09-24 06:59] LABS: Absolute Nucleated RBC Count 0.04 10^3/uL (0-5); NRBC Flagged by Analyzer 0.4 % (0-5)
[2017-09-24 07:51] LABS: Allen Test POS; Base Excess 24 mmol/L (-2 to +2); Bicarbonate 47.2 mmol/L (22-26); Blood Gas Specimen Type ART; EPAP 8; FI02 40; IPAP 18; PO2 71 mmHG (75-100); RR 16; SITE R Radial; SO2 94 % (95-99); Time Given 728; Total Carbon Dioxide 49 mmol/L; pCO2 63.2 mmHg (35-45); pH 7.48 (7.35-7.45)
--- NOTE | 2017-09-24 08:16 | PN_ITS ---
Subjective: The patient was seen and examined at the bedside this morning. Events from the last 24 hours have been reviewed. The patient is currently afebrile, hemodynamically stable and maintaining appropriate oxygen saturations on BiPAP currently. The patient did develop a contraction alkalosis on this morning labs , which is led to the discontinuation of his Lasix. He is currently overall net -2.5 L for the admission. Objective: The patient's most recent lab work, culture data and imaging studies have all been personally reviewed. Strep and urine Legionella antigens were both negative. Respiratory viral panel was negative. Blood and urine cultures are currently pending. Surface echocardiogram revealed segmental dysfunction with preserved ejection fraction of 65%. Right ventricular systolic pressure was estimated to be 39 mmHg. - Physical Exam General: Alert, Cooperative, No apparent distress, - - Currently wearing BiPAP HEENT: Atraumatic, PERRLA, Normocephalic Oral: No Gingival or Mucosal Lesions/ Ulcerations Neck: Supple, No Nodes, Trachea Midline Lungs: No rhonchi, No wheeze, No rales, Diminished Cardiovascular: Regular rate, Regular Rhythm, Normal S1, Normal S2, No murmurs Abdomen: Bowel Sounds Present, Soft, Non Tender, Non-Distended, - - +PEG (C/D/I) Extremities: No clubbing, No cyanosis, No edema Skin: - - No significant change from previous Musculoskeletal: Cachexia, Muscle Wasting Lymphatic: No Cervical, Supraclavicular, or Inguinal Adenopathy Neurological: Neuro grossly intact Psych/Mental Status: Alert and oriented to time, place, person, mood and affect Vital Signs Temp Pulse Resp BP Pulse Ox 98.4 F 88 20 H 95/60 95 09/24/17 07:40 09/24/17 07:40 09/24/17 07:40 09/24/17 07:40 09/24/17 07:40 Oxygen Flow Rate (L/min) 4 Oxygen Delivery Method Bi-pap Weight: 130 lb 15.273 oz Body Mass Index (BMI) 18.0 Intake and Output for Last 24 Hours 09/22/17 09/23/17 09/24/17 23:59 23:59 23:59 Intake Total 1085.8 / 1085.8 1456 / 1456 1054 / 1054 Output Total 5075 / 5075 900 / 900 125 / 125 Balance -3989.2 / -3989.2 556 / 556 929 / 929 Microbiology Past 72 Hours 09/21/17 23:55 Urine Culture - Preliminary Urine Catheter - Busch Culture exhibits no growth. 09/22/17 18:00 Streptococcus pneumoniae Antigen (M - Final Urine Catheter - Busch 09/22/17 18:00 Legionella Antigen - Final Urine Catheter - Busch 09/22/17 10:50 Respiratory Panel (PCR) - Final Mucosa - Nasopharyngeal Laboratory Tests Past 24 Hrs 09/24/17 09/24/17 09/24/17 05:45 05:45 07:46 WBC 10.1 RBC 3.76 L Hgb 10.5 L Hct 33.9 L MCV 90.2 MCH 27.9 MCHC 31.0 L RDW 19.1 H RDW Differential 62.3 H Plt Count 360 MPV 10.3 Immature Gran % (Auto) 0.100 Neut % (Auto) 86.9 H Lymph % (Auto) 6.3 L [place] % (Auto) 5.4 Eos % (Auto) 1.1 Baso % (Auto) 0.2 Absolute Neuts (auto) 8.8 H Absolute Lymphs (auto) 0.64 L Total Counted Not Reportable Nucleated RBC % 0.4 Absolute Retic 0.04 Specimen Type ART Sample Site R Radial pH 7.48 H Bicarbonate Actual 47.2 H POC Total CO2 49 Base Excess 24 H O2 Saturation 94 L O2 % 40 ABG pCO2 63.2 H ABG pO2 71 L Percy Test POS Respiration Rate 16 O2 Delivery Device Bi / C PAP EPAP 8 IPAP 18 Blood Gas Notified Whom HOSP Blood Gas Notified Time 728 Sodium 141 Potassium 3.7 Chloride 91 L Carbon Dioxide > 45.0 H* Anion Gap TNP BUN 28 H Creatinine 0.85 Estim Creat Clear Calc 76.68 Est GFR (MDRD) Af Amer 118 Est GFR (MDRD) Non-Af 98 BUN/Creatinine Ratio 33.1 H Glucose 123 H Calcium 8.6 Clinical Impression(s) from Imaging Studies Chest X-Ray 09/21/17 15:56 Medical Necessity - Tobacco Use Smoking Status: Former smoker Assessment/Plan All Active Problems Dysphasia (Acute) Aspiration pneumonia due to food (regurgitated) (Acute) RECOMMENDATIONS: 1. Wean supplemental oxygen to maintain saturations at or above 90%. 2. Continue Augmentin suspension to complete the previously prescribed treatment course for aspiration pneumonia. 3. Patient to remain strict n.p.o. status. 4. Discontinue Lasix as the patient developed a contraction alkalosis. 5. Encourage incentive spirometer use and mobilize patient as tolerated. 6. The patient should be scheduled for a follow-up office visit in the pulmonary medicine clinic within 2 weeks of his discharge from the hospital. IMPRESSIONS: 1. Acute hypoxemic and hypercarbic respiratory failure Likely multifactorial in etiology with resolving aspiration pneumonia combined with superimposed pulmonary edema contributing. The patient did admit to me that he did take in nutrition by mouth upon discharge from the hospital, which likely precipitated this entire event, given his history of profound oropharyngeal dysphasia and recurrent aspiration events. The patient will remain strict n.p.o. status. IV Zosyn was transitioned back to Augmentin to complete his previously prescribed regimen for aspiration pneumonia. Wean supplemental oxygen to maintain saturations at or above 90%. Diuretics have been discontinued, as the patient did develop a contraction alkalosis. Encourage incentive spirometer use and mobilize patient as tolerated. 2. Severe sepsis with concern for recurrent aspiration pneumonia While the patient's chest imaging does have evidence of bilateral infiltrates, it does not appear grossly different from previous chest imaging. The patient will be continued on antibiotics to complete his previously prescribed treatment course for aspiration pneumonia, noted during his previous hospital stay. I have a low clinical index suspicion for a new pulmonary infectious process. 3. Presumed heart failure with preserved ejection fraction/pulmonary hypertension The patient does have an underlying component of systolic dysfunction with superimposed pulmonary hypertension. Diuretics can be discontinued at this time. 4. History of Hodgkin's lymphoma status post radiation treatment resulting in esophageal dysmotility and profound oropharyngeal dysphasia The patient has a history of recurrent aspiration events and was just recently in the hospital, during which time a PEG tube was placed. The patient was supposed to maintain a strict n.p.o. status, but appears to have taken in p.o. nutrition upon discharge from the hospital. Following a lengthy discussion with the patient and his , the patient is now in agreement to maintain a strict n.p.o. status from this point forward, with continuous tube feeds for nutritional support. 5. Paroxysmal atrial fibrillation/status post aortic mitral valve replacement/ hypothyroidism Complicates care, management, recovery and prognosis. Continue baseline anticoagulation regimen and Synthroid. This note was generated with [employer] software. It may contain incorrect words, spelling, and punctuation that were not noted in checking the note before signing. Code Visit Inpatient E&M: 98977 Subs Hosp L2
[2017-09-24] MEDS: Aspirin 81 MG TAB.CHEW GT (09:30)
[2017-09-24] MEDS: Famotidine 20 MG Tablet GT ×2 (09:31→21:11)
[2017-09-24] MEDS: Amiodarone 200 MG Tablet 100 MG GT (09:31)
[2017-09-24] MEDS: Amox/Clav 400mg/5ml Susp 800 MG GT ×2 (09:34→21:11)
--- NOTE | 2017-09-24 12:25 | PCM.PN.HOSP ---
Subjective: No shortness of breath. Tolerating tube feeds. Would like cold water down his PEG. Objective: SBP registering in 80s and 90s, though pt denies any symptoms associated with it. Vitals/I&O's: Vital Signs Temp Pulse Resp BP Pulse Ox 36.9 C 83 20 H 92/50 L 90 09/24/17 10:40 09/24/17 11:24 09/24/17 11:08 09/24/17 10:40 09/24/17 10:40 Oxygen Flow Rate (L/min) 4 Oxygen Delivery Method Room Air Weight: 59.4 kg Body Mass Index (BMI) 18.0 Intake and Output for Last 24 Hours 09/22/17 09/23/17 09/24/17 23:59 23:59 23:59 Intake Total 1085.8 / 1085.8 1456 / 1456 1543 / 1543 Output Total 5075 / 5075 900 / 900 125 / 125 Balance -3989.2 / -3989.2 556 / 556 1418 / 1418 General: Alert, No apparent distress, - - up in chair. no respiratory distress. no conversational dyspnea. HEENT: Atraumatic, Normocephalic Oral: Moist Mucosa, No Gingival or Mucosal Lesions/ Ulcerations Neck: No Nodes, Thyroid Normal Size and Texture Lungs: Clear to auscultation, Normal air movement, No rhonchi, No wheeze Cardiovascular: Regular rate, Regular Rhythm, Normal S1, Normal S2, No murmurs Abdomen: Bowel Sounds Present, Soft, Non Tender, Non-Distended, No Hepato-splenomegaly Extremities: No edema, No Calf Tenderness Psych/Mental Status: Normal Affect, Appropriate Microbiology Past 72 Hours 09/21/17 23:55 Urine Catheter - Busch Urine Culture - Final Culture exhibits no growth. 09/22/17 18:00 Urine Catheter - Busch Streptococcus pneumoniae Antigen (M - Final 09/22/17 18:00 Urine Catheter - Busch Legionella Antigen - Final 09/22/17 10:50 Mucosa - Nasopharyngeal Respiratory Panel (PCR) - Final Laboratory Results 09/24/17 05:45: WBC 10.1, RBC 3.76 L, Hgb 10.5 L, Hct 33.9 L, MCV 90.2, MCH 27.9, MCHC 31.0 L, RDW 19.1 H, RDW Differential 62.3 H, Plt Count 360, MPV 10.3, Immature Gran % (Auto) 0.100, Neut % (Auto) 86.9 H, Lymph % (Auto) 6.3 L, [place] % (Auto) 5.4, Eos % (Auto) 1.1, Baso % (Auto) 0.2, Absolute Neuts (auto) 8.8 H, Absolute Lymphs (auto) 0.64 L, Total Counted Not Reportable, Nucleated RBC % 0.4, Absolute Retic 0.04 09/24/17 05:45: Sodium 141, Potassium 3.7, Chloride 91 L, Carbon Dioxide > 45.0 H*, Anion Gap TNP, BUN 28 H, Creatinine 0.85, Estim Creat Clear Calc 76.68, Est GFR (MDRD) Af Amer 118, Est GFR (MDRD) Non-Af 98, BUN/Creatinine Ratio 33.1 H, Glucose 123 H, Calcium 8.6 09/24/17 07:46: Specimen Type ART, Sample Site R Radial, pH 7.48 H, Bicarbonate Actual 47.2 H, POC Total CO2 49, Base Excess 24 H, O2 Saturation 94 L, O2 % 40, ABG pCO2 63.2 H, ABG pO2 71 L, Percy Test POS, Respiration Rate 16, O2 Delivery Device Bi / C PAP, EPAP 8, IPAP 18, Blood Gas Notified Whom HOSP , Blood Gas Notified Time 728 Current Medications Albuterol Sulfate (Ventolin Aerosols) 2.5 mg INHALATION Q2H PRN PRN PRN Reason: Shortness of breath, wheezing Albuterol/Ipratropium (Duoneb) 3 ml INHALATION Q4HWA.RT [facility] Last Admin: 09/24/17 11:06 Dose: 3 ml Amiodarone HCl (Cordarone) 100 mg GT DAILY [facility] Last Admin: 09/24/17 09:31 Dose: 100 mg Amoxicillin/Clavulanate Potassium (Augmentin Suspension 400mg/5ml) 800 mg GT BID [facility] Stop: 09/25/17 22:01 Last Admin: 09/24/17 09:34 Dose: 800 mg Aspirin (Aspirin, Baby) 81 mg GT DAILY@0800 [facility] Last Admin: 09/24/17 09:30 Dose: 81 mg Famotidine (Pepcid) 20 mg GT BID [facility] Last Admin: 09/24/17 09:31 Dose: 20 mg Enteral Nutritional Formula (Jevity 1.5) 1,000 mls @ 56 mls/hr GT .[id number] [facility] Last Admin: 09/23/17 15:01 Dose: 50 mls/hr Levothyroxine Sodium (Synthroid) 100 mcg GT DAILY@0600 [facility] Last Admin: 09/24/17 06:36 Dose: 100 mcg Magnesium Hydroxide (Milk Of Magnesia) 30 ml PO DAILY PRN PRN PRN Reason: Constipation Ondansetron HCl (Zofran) 4 mg IV Q8H PRN PRN PRN Reason: Nausea Sodium Chloride () 5 - 30 ml IV UD PRN PRN Reason: SALINE FLUSH Last Admin: 09/22/17 15:13 Dose: 10 ml Sodium Chloride ([place] Nasal [place]) 2 spray NASAL TID PRN PRN PRN Reason: NASAL DRYNESS Last Admin: 09/24/17 06:34 Dose: 2 spray Medical Necessity - Tobacco Use Smoking Status: Former smoker Assessment/Plan All Active Problems Dysphasia (Acute) Aspiration pneumonia due to food (regurgitated) (Acute) 1. Acute hypoxic and hypercapnic respiratory failure Secondary to recurrent aspiration pneumonia Patient had dietary indiscretion meaning that he ate after his most recent discharge. Patient states that he was not informed as such. Dr. Dumont has discussed with the patient and his about strict n.p.o. patient wishes to be full CODE STATUS or pleasure feeds if he wishes to her to hospice level. Patient wishes to be full CODE STATUS and therefore nothing by mouth. Wean oxygen as tolerated Patient does have oxygen at home 2. Aspiration pneumonia Antibiotics have been de-escalated to the Augmentin that he was on previously and will continue with that course of antibiotics he was previously prescribed 3. Dysphagia Secondary to pharyngeal esophageal dysphagia secondary to prior Hodgkin's disease status post radiation Patient understands that he cannot eat by mouth because any food or liquids may be aspirated into his lungs Patient asking about juice and Gatorade down his PEG tube I discouraged both of those as there is really no central tunnel qualities out of either those other than providing sugar. If any liquids to go down his tube should just be water. Minimal residuals, will change to bolus feeds to see how he tolerates it. 4. Severe sepsis Present on admission Secondary to aspiration pneumonia 5. DVT prophylaxis with SCD 6. Hypotension: asymptomatic monitor for now DW patient's family at bedside. Code Visit Inpatient E&M: [id number] Subs Hosp L2
--- NOTE | 2017-09-24 12:35 | PN_ITS ---
Subjective: No shortness of breath. Tolerating tube feeds. Would like cold water down his PEG. Objective: SBP registering in 80s and 90s, though pt denies any symptoms associated with it. Vitals/I&O's: Vital Signs Temp Pulse Resp BP Pulse Ox 36.9 C 83 20 H 92/50 L 90 09/24/17 10:40 09/24/17 11:24 09/24/17 11:08 09/24/17 10:40 09/24/17 10:40 Oxygen Flow Rate (L/min) 4 Oxygen Delivery Method Room Air Weight: 59.4 kg Body Mass Index (BMI) 18.0 Intake and Output for Last 24 Hours 09/22/17 09/23/17 09/24/17 23:59 23:59 23:59 Intake Total 1085.8 / 1085.8 1456 / 1456 1543 / 1543 Output Total 5075 / 5075 900 / 900 125 / 125 Balance -3989.2 / -3989.2 556 / 556 1418 / 1418 General: Alert, No apparent distress, - - up in chair. no respiratory distress. no conversational dyspnea. HEENT: Atraumatic, Normocephalic Oral: Moist Mucosa, No Gingival or Mucosal Lesions/ Ulcerations Neck: No Nodes, Thyroid Normal Size and Texture Lungs: Clear to auscultation, Normal air movement, No rhonchi, No wheeze Cardiovascular: Regular rate, Regular Rhythm, Normal S1, Normal S2, No murmurs Abdomen: Bowel Sounds Present, Soft, Non Tender, Non-Distended, No Hepato- splenomegaly Extremities: No edema, No Calf Tenderness Psych/Mental Status: Normal Affect, Appropriate Microbiology Past 72 Hours 09/21/17 23:55 Urine Catheter - Busch Urine Culture - Final Culture exhibits no growth. 09/22/17 18:00 Urine Catheter - Busch Streptococcus pneumoniae Antigen (M - Final 09/22/17 18:00 Urine Catheter - Busch Legionella Antigen - Final 09/22/17 10:50 Mucosa - Nasopharyngeal Respiratory Panel (PCR) - Final Laboratory Results 09/24/17 05:45: WBC 10.1, RBC 3.76 L, Hgb 10.5 L, Hct 33.9 L, MCV 90.2, MCH 27.9 , MCHC 31.0 L, RDW 19.1 H, RDW Differential 62.3 H, Plt Count 360, MPV 10.3, Immature Gran % (Auto) 0.100, Neut % (Auto) 86.9 H, Lymph % (Auto) 6.3 L, [place] % (Auto) 5.4, Eos % (Auto) 1.1, Baso % (Auto) 0.2, Absolute Neuts (auto) 8.8 H, Absolute Lymphs (auto) 0.64 L, Total Counted Not Reportable, Nucleated RBC % 0.4 , Absolute Retic 0.04 09/24/17 05:45: Sodium 141, Potassium 3.7, Chloride 91 L, Carbon Dioxide > 45.0 H*, Anion Gap TNP, BUN 28 H, Creatinine 0.85, Estim Creat Clear Calc 76.68, Est GFR (MDRD) Af Amer 118, Est GFR (MDRD) Non-Af 98, BUN/Creatinine Ratio 33.1 H, Glucose 123 H, Calcium 8.6 09/24/17 07:46: Specimen Type ART, Sample Site R Radial, pH 7.48 H, Bicarbonate Actual 47.2 H, POC Total CO2 49, Base Excess 24 H, O2 Saturation 94 L, O2 % 40, ABG pCO2 63.2 H, ABG pO2 71 L, Percy Test POS, Respiration Rate 16, O2 Delivery Device Bi / C PAP, EPAP 8, IPAP 18, Blood Gas Notified Whom HOSP , Blood Gas Notified Time 728 Current Medications Albuterol Sulfate (Ventolin Aerosols) 2.5 mg INHALATION Q2H PRN PRN PRN Reason: Shortness of breath, wheezing Albuterol/Ipratropium (Duoneb) 3 ml INHALATION Q4HWA.RT [facility] Last Admin: 09/24/17 11:06 Dose: 3 ml Amiodarone HCl (Cordarone) 100 mg GT DAILY [facility] Last Admin: 09/24/17 09:31 Dose: 100 mg Amoxicillin/Clavulanate Potassium (Augmentin Suspension 400mg/5ml) 800 mg GT BID [facility] Stop: 09/25/17 22:01 Last Admin: 09/24/17 09:34 Dose: 800 mg Aspirin (Aspirin, Baby) 81 mg GT DAILY@0800 [facility] Last Admin: 09/24/17 09:30 Dose: 81 mg Famotidine (Pepcid) 20 mg GT BID [facility] Last Admin: 09/24/17 09:31 Dose: 20 mg Enteral Nutritional Formula (Jevity 1.5) 1,000 mls @ 56 mls/hr GT .[id number] [facility] Last Admin: 09/23/17 15:01 Dose: 50 mls/hr Levothyroxine Sodium (Synthroid) 100 mcg GT DAILY@0600 [facility] Last Admin: 09/24/17 06:36 Dose: 100 mcg Magnesium Hydroxide (Milk Of Magnesia) 30 ml PO DAILY PRN PRN PRN Reason: Constipation Ondansetron HCl (Zofran) 4 mg IV Q8H PRN PRN PRN Reason: Nausea Sodium Chloride () 5 - 30 ml IV UD PRN PRN Reason: SALINE FLUSH Last Admin: 09/22/17 15:13 Dose: 10 ml Sodium Chloride ([place] Nasal [place]) 2 spray NASAL TID PRN PRN PRN Reason: NASAL DRYNESS Last Admin: 09/24/17 06:34 Dose: 2 spray Medical Necessity - Tobacco Use Smoking Status: Former smoker Assessment/Plan All Active Problems Dysphasia (Acute) Aspiration pneumonia due to food (regurgitated) (Acute) 1. Acute hypoxic and hypercapnic respiratory failure * Secondary to recurrent aspiration pneumonia * Patient had dietary indiscretion meaning that he ate after his most recent discharge. Patient states that he was not informed as such. Dr. Dumont has discussed with the patient and his about strict n.p.o. patient wishes to be full CODE STATUS or pleasure feeds if he wishes to her to hospice level. Patient wishes to be full CODE STATUS and therefore nothing by mouth. * Wean oxygen as tolerated * Patient does have oxygen at home 2. Aspiration pneumonia * Antibiotics have been de-escalated to the Augmentin that he was on previously and will continue with that course of antibiotics he was previously prescribed 3. Dysphagia * Secondary to pharyngeal esophageal dysphagia secondary to prior Hodgkin's disease status post radiation * Patient understands that he cannot eat by mouth because any food or liquids may be aspirated into his lungs * Patient asking about juice and Gatorade down his PEG tube I discouraged both of those as there is really no central tunnel qualities out of either those other than providing sugar. * If any liquids to go down his tube should just be water. * Minimal residuals, will change to bolus feeds to see how he tolerates it. 4. Severe sepsis * Present on admission * Secondary to aspiration pneumonia 5. DVT prophylaxis with SCD 6. Hypotension: * asymptomatic * monitor for now DW patient's family at bedside. Code Visit Inpatient E&M: [id number] Subs Hosp L2
[2017-09-24] MEDS: Jevity 1.5. 1,000 ML Bottle 237 ML GT ×3 (14:10→21:10)
--- NOTE | 2017-09-24 23:57 | CPS ---
Addendum entered by Quiana Minaya 09/24/17 23:58: Original Note: placed on stand-by to cannula per Dr Dumont
[2017-09-25] VITALS (9 sets, daily range): BP systolic 104–124; BP diastolic 58–71; PULSE 81–88; RESP 16–20; TEMP 36.6–36.9; O2SAT 92–97
[2017-09-25] MEDS: Levothyroxine 100 MCG Tablet GT (04:58)
[2017-09-25 06:04] LABS: Hematocrit 33.3 % (40-54); Hemoglobin 10.4 g/dl (13.0-16.5); Mean Corp Hgb Conc 31.2 g/gl (32-36); Mean Corpuscular Hgb 27.8 pg (27.0-32.0); Mean Platelet Vol. 10.7 fl (6.2-12.0); Platelet Count 371 K/mm3 (150-450); RBC Distribution Width CV 19.1 % (11.6-14.6); RBC Distribution Width SD 61.8 fl (35.1-43.9); Red Blood Count 3.74 M/mm3 (4.6-6.2); White Blood Count 10.9 K/mm3 (4.4-11.0)
[2017-09-25 06:06] LABS: Scan Indicated on CBC? Y/N NO
[2017-09-25] MEDS: Jevity 1.5. 1,000 ML Bottle 237 ML GT ×3 (06:18→14:17)
[2017-09-25 06:28] LABS: Anion Gap 6 (5-15); BUN 32 mg/dL (7-18); BUN/Creat Ratio 40.1 RATIO (10-20); Calcium,Total 8.5 mg/dL (8.5-10.1); Chloride 93 mmol/L (98-107); EST Glomerular Filtration Rate 105 mL/min (>60); Est Glom Filt Rate - Afr Amer 127 mL/min (>60); Estimated Creatinine Clearance 84.35 ml/min; Glucose 95 mg/dL (74-106); Potassium 4.2 mmol/L (3.5-5.1); Sodium Level 143 mmol/L (136-145)
[2017-09-25] MEDS: Ipratropium/Albuterol Sulfate 3 ML AMPUL.NEB INHALATION ×2 (07:19→10:34)
--- NOTE | 2017-09-25 07:48 | RAD_ITS ---
STUDY: X-RAY CHEST REASON FOR EXAM: Male, 62 years old. Shortness of breath, dyspnea TECHNIQUE: Single AP portable view of the chest. COMPARISON: 09/21/2017. 09/18/2017. CT chest 01/02/2017 FINDINGS: There are superimposed monitor leads. Mid and basal air space opacification left greater than right and left greater than right pleural effusion. Stable surgical changes upper chest wall. Stable hyperinflation right greater than left lung parenchyma. Distortion of parenchyma both apices. Sternal cerclage wires are present from a prior sternotomy and valve replacement. Stable surgical clips left hilum. Stable air column along the right trachea possible air distended esophagus. Normal visualized pulmonary arteries. There is atherosclerotic calcification of the aortic arch with tortuosity. There is demineralization of the osseous structures. Remote appearing rib deformities right hemithorax, left scapula. There is no demonstrated abnormality of the visualized soft tissue structures of the upper abdomen. RAD/Chest 1 View (Portable) IMPRESSION: No significant change of bilateral effusion and airspace disease left greater than right basis. Underlying emphysema, postsurgical change and the scarring bilateral apices suspected. Probable air distention of the esophagus. Osteoporosis and degenerative changes with remote appearing rib deformities right hemithorax and left scapula. Electronically Signed: Latricia Robertson MD at 0:25 EDT , Service support ,
--- NOTE | 2017-09-25 07:59 | PN_ITS ---
Subjective: Chief complaint: Follow-up after admission for acute hypoxic and hypercapnic respiratory failure secondary to recurrent aspiration pneumonia, found to have probable diastolic CHF. Patient seen and examined. No acute events overnight. Today, patient is feeling better, less short of breath but still complaining of dry cough with minimal sputum. He was asked to go home today and he thinks that he can go home and take care of himself. He admitted eating on the day he returned back to the hospital and he was supposed to be n.p.o. because of aspiration pneumonia. He is afebrile, blood pressure stable and heart rate are stable, pulse ox of 92% on 3 L. - Physical Exam General: Alert, Oriented x3, Cooperative, - - Cachexia, minimally short of breath. HEENT: Atraumatic, PERRLA, EOMI, Normocephalic Oral: Moist Mucosa, No Gingival or Mucosal Lesions/ Ulcerations Neck: Supple, No JVD, Negative Carotid Bruits, Trachea Midline, Thyroid Normal Size and Texture Lungs: No wheeze, No rales, Diminished, Rhonchi, - - Decreased breath sounds bilateral, scattered rhonchi. Cardiovascular: Regular rate, Regular Rhythm, Normal S1, Normal S2, PMI Normal Abdomen: Bowel Sounds Present, Soft, Non Tender, Non-Distended, No Hepato- splenomegaly, - - PEG tube in place. Extremities: No clubbing, No cyanosis, No edema Skin: No rashes, No breakdown Musculoskeletal: No Tenderness to Palpation of Joints or Extremities Lymphatic: No Cervical, Supraclavicular, or Inguinal Adenopathy Neurological: Cranial nerves II-XII grossly intact, Neuro grossly intact Psych/Mental Status: Normal Affect, Appropriate, Alert and oriented to time, place, person, mood and affect Vital Signs Temp Pulse Resp BP Pulse Ox 98.5 F 83 18 117/58 L 92 09/25/17 03:05 09/25/17 03:54 09/25/17 03:05 09/25/17 03:05 09/25/17 03:05 Oxygen Flow Rate (L/min) 3 Oxygen Delivery Method Nasal Cannula Weight: 135 lb 9.349 oz Body Mass Index (BMI) 18.0 Intake and Output for Last 24 Hours 09/23/17 09/24/17 09/25/17 23:59 23:59 23:59 Intake Total 1456 / 1456 3984 / 3984 874 / 874 Output Total 900 / 900 325 / 325 200 / 200 Balance 556 / 556 3659 / 3659 674 / 674 Microbiology Past 72 Hours 09/21/17 23:55 Urine Culture - Final Urine Catheter - Busch Culture exhibits no growth. 09/22/17 18:00 Streptococcus pneumoniae Antigen (M - Final Urine Catheter - Busch 09/22/17 18:00 Legionella Antigen - Final Urine Catheter - Busch 09/22/17 10:50 Respiratory Panel (PCR) - Final Mucosa - Nasopharyngeal Laboratory Tests Past 24 Hrs 09/24/17 09/25/17 09/25/17 07:46 05:26 05:26 WBC 10.9 RBC 3.74 L Hgb 10.4 L Hct 33.3 L MCV 89.0 MCH 27.8 MCHC 31.2 L RDW 19.1 H RDW Differential 61.8 H Plt Count 371 MPV 10.7 Specimen Type ART Sample Site R Radial pH 7.48 H Bicarbonate Actual 47.2 H POC Total CO2 49 Base Excess 24 H O2 Saturation 94 L O2 % 40 ABG pCO2 63.2 H ABG pO2 71 L Percy Test POS Respiration Rate 16 O2 Delivery Device Bi / C PAP EPAP 8 IPAP 18 Blood Gas Notified Whom HOSP Blood Gas Notified Time 728 Sodium 143 Potassium 4.2 Chloride 93 L Carbon Dioxide 44.0 H Anion Gap 6 BUN 32 H Creatinine 0.80 Estim Creat Clear Calc 84.35 Est GFR (MDRD) Af Amer 127 Est GFR (MDRD) Non-Af 105 BUN/Creatinine Ratio 40.1 H Glucose 95 Calcium 8.5 Medical Necessity - Tobacco Use Smoking Status: Former smoker Assessment/Plan All Active Problems Dysphasia (Acute) Aspiration pneumonia due to food (regurgitated) (Acute) This is a 62 years old male patient presented to the emergency room because of worsening shortness of breath and low pulse oximeter in context of discharge from the hospital yesterday, and apparently patient started eating by mouth although he was instructed to take nothing by mouth, found to have acute hypoxic and hypercapnic respiratory failure secondary to recurrent aspiration pneumonia as well as probable acute on chronic diastolic CHF. #1 acute hypoxic and hypercapnic respiratory failure: Attributed to recurrent aspiration pneumonia and probable CHF. Patient was on IV Lasix for diuresis, now discontinued. He is on antibiotics. As part of status stabilized, maintaining pulse ox on 2 L. Plan to repeat chest x-ray today. #2 severe sepsis: Secondary to aspiration pneumonia, recurrent. He has been on antibiotics, now on Augmentin through the G-tube. Cultures are negative. Has been afebrile throughout admission, other vital signs stable. #3 recurrent aspiration pneumonia: At this time, he is on Augmentin through the G-tube. He has been afebrile, other vital signs are stable. Blood cultures with no growth in 48 hours. Urine culture showed no growth. Pneumococcal and Legionella antigen were negative. Respiratory panel for viruses were negative. Today, patient admitted that he ate on the day when he returned back to the hospital although he was instructed to take nothing by mouth. Plan to continue Augmentin. #4 probable acute on chronic congestive heart failure, probably diastolic: He is off IV Lasix. 2D echocardiogram revealed segmental dysfunction with preserved ejection fraction, ejection fraction 65%, stable appearing bioprosthetic mitral and aortic valve. #5 dysphagia status post PEG tube placement: Tolerating tube feeds. 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 #7 paroxysmal atrial fibrillation: Controlled, continue amiodarone for rate control, resume Coumadin, INR. #8 hypothyroidism: Continue levothyroxine through GT tube. #9 history of Hodgkin's lymphoma: Status post chemotherapy, in remission, stable. #10 DVT prophylaxis: INR is 2.1. This note was generated with [employer] software. It may contain incorrect words, spelling, and punctuation that were not noted in checking the note before signing.
[2017-09-25 09:17] LABS: International Normalized Ratio 1.4; Prothrombin Time (Protime)PT. 17.2 SECONDS (11.7-14.9)
[2017-09-25] MEDS: Famotidine 20 MG Tablet GT (10:54)
[2017-09-25] MEDS: Amiodarone 200 MG Tablet 100 MG GT (10:54)
[2017-09-25] MEDS: Amox/Clav 400mg/5ml Susp 800 MG GT (10:54)
[2017-09-25] MEDS: Aspirin 81 MG TAB.CHEW GT (10:54)
[2017-09-25] MEDS: Sodium Chloride 0.65% 1 SPRAY SPRAY.BTL 2 SPRAY NASAL (13:16)
--- NOTE | 2017-09-25 13:18 | PCM.PROGNOTE ---
Subjective: Patient did okay overnight. No acute issues were reported. Patient is still requiring supplemental oxygen to maintain saturations. No aspiration events have been reported. Patient is currently asking to go home. Patient reports that he will not be taking any other food by mouth. Objective: Chest x-ray shows bilateral effusions with improvement compared to previous - Physical Exam General: Alert, Oriented x3, Cooperative, No apparent distress, - - Cachectic. Speaking in full sentences with a hoarse voice. HEENT: Atraumatic, PERRLA, EOMI, Normocephalic, - - Some temporal wasting noted. No epistaxis. Oral: Moist Mucosa, No Gingival or Mucosal Lesions/ Ulcerations, - - Fair dentition Neck: Supple, No JVD, No Nodes, Trachea Midline Lungs: No rhonchi, No wheeze, No rales, Diminished, - - Symmetric expansion. Slight dullness to percussion. Cardiovascular: Regular rate, Regular Rhythm, Normal S1, Normal S2, No murmurs, No rub noted, No Gallop Abdomen: Bowel Sounds Present, Soft, Non Tender, Non-Distended, - - PEG is clean, dry and intact. Extremities: No cyanosis, No edema, Capillary Refill Less than 3 Seconds, Clubbing Skin: No rashes, No breakdown Musculoskeletal: Cachexia, Muscle Wasting Lymphatic: No Cervical, Supraclavicular, or Inguinal Adenopathy Neurological: Cranial nerves II-XII grossly intact, Neuro grossly intact Psych/Mental Status: Alert and oriented to time, place, person, mood and affect Vital Signs Temp Pulse Resp BP Pulse Ox 36.7 C 87 16 124/71 H 92 09/25/17 10:00 09/25/17 12:00 09/25/17 10:34 09/25/17 10:00 09/25/17 10:00 Oxygen Flow Rate (L/min) 4 Oxygen Delivery Method Nasal Cannula Weight: 61.5 kg Body Mass Index (BMI) 18.0 Intake and Output for Last 24 Hours 09/23/17 09/24/17 09/25/17 23:59 23:59 23:59 Intake Total 1456 / 1456 3984 / 3984 1311 / 1311 Output Total 900 / 900 325 / 325 200 / 200 Balance 556 / 556 3659 / 3659 1111 / 1111 Microbiology Past 72 Hours 09/21/17 23:55 Urine Culture - Final Urine Catheter - Busch Culture exhibits no growth. 09/22/17 18:00 Streptococcus pneumoniae Antigen (M - Final Urine Catheter - Busch 09/22/17 18:00 Legionella Antigen - Final Urine Catheter - Busch 09/22/17 10:50 Respiratory Panel (PCR) - Final Mucosa - Nasopharyngeal Laboratory Tests Past 24 Hrs 09/25/17 09/25/17 09/25/17 05:26 05:26 09:04 WBC 10.9 RBC 3.74 L Hgb 10.4 L Hct 33.3 L MCV 89.0 MCH 27.8 MCHC 31.2 L RDW 19.1 H RDW Differential 61.8 H Plt Count 371 MPV 10.7 PT 17.2 H INR 1.4 Sodium 143 Potassium 4.2 Chloride 93 L Carbon Dioxide 44.0 H Anion Gap 6 BUN 32 H Creatinine 0.80 Estim Creat Clear Calc 84.35 Est GFR (MDRD) Af Amer 127 Est GFR (MDRD) Non-Af 105 BUN/Creatinine Ratio 40.1 H Glucose 95 Calcium 8.5 Medical Necessity - Tobacco Use Smoking Status: Former smoker Assessment/Plan All Active Problems Dysphasia (Acute) Aspiration pneumonia due to food (regurgitated) (Acute) RECOMMENDATIONS: 1. Wean supplemental oxygen to maintain saturations at or above 90%. 2. Continue Augmentin suspension to complete the previously prescribed treatment course for aspiration pneumonia. 3. Patient to remain strict n.p.o. status. 4. Walking oximetry prior to discharge 5. Encourage incentive spirometer use and mobilize patient as tolerated. 6. The patient should be scheduled for a follow-up office visit in the pulmonary medicine clinic within 2 weeks of his discharge from the hospital. IMPRESSIONS: 1. Acute hypoxemic and hypercarbic respiratory failure Likely multifactorial in etiology with resolving aspiration pneumonia combined with superimposed pulmonary edema contributing. Since admission to the hospital, patient has admitted to p.o. intake with both liquids and solids. Patient is now reporting he will comply with the strict n.p.o. status. Patient was de-escalated on antibiotics and appears to be doing well. No fevers have been noted overnight. Patient will need a walking oximetry prior to discharge. Would not be surprised the patient required supplemental oxygen with ambulation. 2. Severe sepsis with concern for recurrent aspiration pneumonia While the patient's chest imaging does have evidence of bilateral infiltrates, it does not appear grossly different from previous chest imaging. The patient will be continued on antibiotics to complete his previously prescribed treatment course for aspiration pneumonia, noted during his previous hospital stay. 3. Presumed heart failure with preserved ejection fraction/pulmonary hypertension The patient does have an underlying component of systolic dysfunction with superimposed pulmonary hypertension. Diuretic therapy will be very difficult given patient's severe malnourished status. 4. History of Hodgkin's lymphoma status post radiation treatment resulting in esophageal dysmotility and profound oropharyngeal dysphasia The patient has a history of recurrent aspiration events and was just recently in the hospital, during which time a PEG tube was placed. The patient was supposed to maintain a strict n.p.o. status, but appears to have taken in p.o. nutrition upon discharge from the hospital. Following a lengthy discussion with the patient and his by Dr. Dumont, the patient is now in agreement to maintain a strict n.p.o. status from this point forward, with continuous tube feeds for nutritional support. 5. Paroxysmal atrial fibrillation/status post aortic mitral valve replacement/hypothyroidism Complicates care, management, recovery and prognosis. Continue baseline anticoagulation regimen and Synthroid. This note was generated with [employer] software. It may contain incorrect words, spelling, and punctuation that were not noted in checking the note before signing. Code Visit Inpatient E&M: 26029 Subs Hosp L2
--- NOTE | 2017-09-25 13:40 | CASEMGMT ---
This RN CM to room to discuss discharge planning with pt at this time. Pt states would like to go home with resumption of HHC and on his oxygen that was already ordered and delivered last admission. Pt states that he did attempt to eat/drink and he states that he 'learned his lesson' about taking food/drink by mouth and that he will refrain at discharge. Resumption of care order was already placed and discharge info will just need faxed when pt put in for discharge. SStaten RN RY
--- NOTE | 2017-09-25 14:36 | DCINST_ITS ---
You will use the following diet at home:: Other - Strict nothing by mouth. Discharge Activity: Return to Normal Activity Weight Bearing Status: Weight bearing as tolerated Call your doctor if you observe: Fever of 101 or Higher, Shortness of breath, Dizziness, Fainting spells, Chest pain, Increased palpitations (irregular heartbeat), Uncontrolled pain Instructions: Understanding Dysphagia, Discharge Instructions for Pneumonia, Understanding PEG Tube Feeding, Taking Medication Through a Feeding Tube, Discharge Instructions: Using Oxygen at Home Allergies/Adverse Reactions: Allergies meloxicam Adverse Reaction (Verified 09/21/17 15:31) Nausea naproxen [From Naprosyn] Adverse Reaction (Verified 09/21/17 15:31) Nausea Medications to take at Discharge Aspirin [Aspirin, Baby] 81 mg GT DAILY@0800 01/23/16 Levothyroxine [Synthroid] 100 mcg GT DAILY 01/23/16 Amiodarone HCl [Pacerone] 100 mg GT DAILY 01/01/17 Omeprazole 20 mg GT DAILY 01/01/17 Amox/Clav 400mg/5ml Susp [Augmentin Suspension 400mg/5ml] 875 mg GT BIDCM #5 po.syringe 09/25/17 Jevity 1.5 237 ml GT 5X/DAY #1 bottle 09/25/17 Warfarin Sodium 1 mg GT DAILY 09/25/17 The following prescriptions were given: Jevity 1.5 237 ml GT 5X/DAY #1 bottle Amox/Clav 400mg/5ml Susp [Augmentin Suspension 400mg/5ml] 875 mg GT BIDCM #5 po.syringe Primary Care Physician: Criss Leyva MD [Primary Care Provider] - Please follow up with your Primary Care Physician in: 1 week. Test Results: Test results from this visit will be discussed in further detail at your follow- up appointment, if applicable.
--- NOTE | 2017-09-25 15:55 | PCM.DC.SUM ---
Discharge Date and Diagnosis Date of Admission: 09/21/17 Date of Discharge: 09/25/17 - Primary Discharge Diagnosis #1 acute hypoxic and hypercapnic respiratory failure. #2 severe sepsis. #3 recurrent aspiration pneumonia. #4 probable acute on chronic diastolic CHF, probably diastolic. #5 dysphagia status post PEG tube placement. - Secondary Discharge Diagnosis Chronic Problems CHF (congestive heart failure) (Chronic) Hypothyroidism (Chronic) Chronic anticoagulation (Chronic) Status post mitral valve replacement (Chronic) Status post aortic valve replacement (Chronic) Normochromic normocytic anemia (Chronic) Bilateral pleural effusion (Chronic) Atrial fibrillation (Chronic) Pleural effusion (Chronic) Hodgkin's disease in remission (Chronic) Mitral valve regurgitation (Chronic) Aortic valve regurgitation (Chronic) Hospital Course and Treatment Imaging Results: 09/25/17 07:48 CXR [Chest 1 View (Portable)] [RAD] Urgent Clinical Impression(s) from Imaging Studies Chest X-Ray 09/21/17 15:56 IMPRESSION: Central pulmonary vascular congestion vs pulmonary edema-stable. Overlying pneumonia cannot be excluded. Electronically Signed: Jose De Jesus Marie MD at 17:18 EDT , Service support , Dr. Dumont/Dr. Reid, pulmonary and critical care. Operations: None Procedures: 2-D Echocardiogram, EKG Summary of Care Provided: This is a 62 years old male patient presented to the emergency room because of worsening shortness of breath and pulse oximeter 1 day after discharge from the hospital after admission for aspiration pneumonia. Patient was found to be on acute hypoxic and hypercapnic respiratory failure attributed to recurrent aspiration pneumonia as well as probable congestive heart failure. Patient return to the ED 1 day after discharge from the hospital after admission for aspiration pneumonia and he was started on tube feeds through the PEG tube. Patient admitted that he ate on the day of readmission although he was instructed not to take anything by mouth because of dysphagia and high risk for aspiration. On admission, his ABG revealed pH of 7.24, PCO2 of 75 and PO2 of 78 consistent with acute hypoxic and hypercapnic respiratory failure with CO2 retention. Chest x-ray on admission revealed findings consistent with probable pulmonary vascular congestion as well as of underlying pneumonia which cannot be excluded. Patient was treated with BiPAP, IV antibiotics and he received IV Lasix for diuresis. His BNP was elevated. His EKG showed no evidence of acute ischemic changes and troponin was negative. His blood culture showed no growth in 48 hours. Urine culture showed no growth. Pneumococcal and Legionella antigen were negative. Respiratory panel for viruses was negative. With BiPAP, IV antibiotic therapy as well as IV Lasix, patient symptoms improved and his oxygen requirement decreased. On admission, he was on BiPAP and he required up to 6 L of oxygen. With treatment, he was able to come down to 3 L of oxygen. 2D echocardiogram revealed segmental dysfunction with ejection fraction 65%, stable appearing bioprosthetic mitral and aortic valve, RVSP of 39. Because patient returned to the hospital 1 day after discharge, I spoke with the patient on multiple occasions about [facility] to [facility] to avoid readmission and because he needs oxygen as well as he needs help with tube feeds. I recommended placement to penitentiary facility but patient refused and wants to go home. I explained to the patient that if he continue to eat by mouth, he will be ended up again in the hospital for recurrent pneumonia. He mentioned that he learned a lesson and he will avoid eating or drinking by mouth and he will use that tube feeds. Patient insisted to go home and he stated that he would be able to take care of himself, take care of the tube feeds and use oxygen at home. Patient discharged home with home health in a stable medical condition, discharged on Augmentin suspension for 5 days to complete total of 10 days of treatment, discharged on tube feeds through the PEG tube, continued on Coumadin for paroxysmal A. fib, order given to repeat INR in 3 days, discharged on oxygen at 3 L, recommended follow-up with PCP in 1 week. Discharge Activity: Return to Normal Activity Weight Bearing Status: Weight bearing as tolerated Call your doctor if you observe: Fever of 101 or Higher, Shortness of breath, Dizziness, Fainting spells, Chest pain, Increased palpitations (irregular heartbeat), Uncontrolled pain Home Medications: Medications to take at Discharge Aspirin [Aspirin, Baby] 81 mg GT DAILY@0800 01/23/16 Levothyroxine [Synthroid] 100 mcg GT DAILY 01/23/16 Amiodarone HCl [Pacerone] 100 mg GT DAILY 01/01/17 Omeprazole 20 mg GT DAILY 01/01/17 Amox/Clav 400mg/5ml Susp [Augmentin Suspension 400mg/5ml] 875 mg GT BIDCM #5 po.syringe 09/25/17 Jevity 1.5 237 ml GT 5X/DAY #1 bottle 09/25/17 Warfarin Sodium 1 mg GT DAILY 09/25/17 Following Prescrptions Were Given to Patient: Jevity 1.5 237 ml GT 5X/DAY #1 bottle Amox/Clav 400mg/5ml Susp [Augmentin Suspension 400mg/5ml] 875 mg GT BIDCM #5 po.syringe Primary Care Physician: Criss Leyva MD [Primary Care Provider] - Please follow up with your Primary Care Physician in: 1 week. Please Follow Up With: JOSEFINA OLDER N.P. Patient Instructions: Understanding Dysphagia, Understanding PEG Tube Feeding, Discharge Instructions for Pneumonia, Taking Medication Through a Feeding Tube, Discharge Instructions: Using Oxygen at Home Disposition: Home with Home Health Minutes spent on discharge:: 32 Patient Condition:: Stable Medical Necessity - Tobacco Use Smoking Status: Former smoker Meaningful Use Info Meaningful Use Diagnoses (Choose all that apply): None applicable Code Visit Inpatient E&M: 18150 Disch Hosp
--- NOTE | 2017-09-25 15:58 | CASEMGMT ---
RN CM call Brooke at [facility] and faxed over discharge instructions and resumption order. RN CM updated to add ST. CM to continue to follow and plan for safe discharge.
--- NOTE | 2017-09-25 16:11 | CASEMGMT ---
Speech therapy requesting pt have outpt therapy. Pt is currently receiving home health RN. Phone call to [facility] [employer] and they do have home speech therapy. SW met with pt and he is agreeable to [facility] YOLANDA Soto CM [facility]
--- NOTE | 2017-09-26 16:04 | CASEMGMT ---
YOLANDA RAZA Discharge F/U Phone Call LACE: 13 Strata: 4 Discharge date: 09/25/17 Call date: 09/26/17 Call time: [id number] Duration: 2 minutes Admission dx: Acute hypoxic and hypercapnic resp failure Pt states has been doing 'good' since discharge yesterday. Pt states no questions regarding discharge instructions or medications at this time. Pt states HHC came out today and is helping him with his feeding tube. Pt states no suggestions for [facility] at this time. Pt voices no further questions/concerns/needs at this time. Pt states has f/u appts scheduled and plans to keep them. SStaten YOLANDA RAZA
== END 2017-09-25 17:29 | disposition home health service (06) | DRG 871 ==
LOC: ED 16:08 → ICU 18:27 → PCU 09-23 12:26
PROVIDERS: Family Medicine; Admitting Provider Hospitalist; Emergency Provider Emergency Medicine; Family Provider Internal Medicine; PCP Internal Medicine; Visit Provider Hospitalist
DX: A41.9 Sepsis, unspecified organism (principal); R65.20 Severe sepsis without septic shock; J69.0 Pneumonitis due to inhalation of food and vomit; I50.33 Acute on chronic diastolic (congestive) heart failure; J96.21 Acute and chronic respiratory failure with hypoxia; J96.22 Acute and chronic respiratory failure with hypercapnia; E43 Unspecified severe protein-calorie malnutrition; E87.2 Acidosis; Z68.1 Body mass index [BMI] 19.9 or less, adult; E87.3 Alkalosis; I95.9 Hypotension, unspecified; Z87.01 Personal history of pneumonia (recurrent); R13.14 Dysphagia, pharyngoesophageal phase; T66.XXXS Radiation sickness, unspecified, sequela; Y84.2 Radiological procedure and radiotherapy as the cause of abnormal reaction of the patient, or of later complication, without mention of misadventure at the time of the procedure; Y92.9 Unspecified place or not applicable; I48.0 Paroxysmal atrial fibrillation; J44.9 Chronic obstructive pulmonary disease, unspecified; E03.9 Hypothyroidism, unspecified; Z93.1 Gastrostomy status; Z79.01 Long term (current) use of anticoagulants; Z79.82 Long term (current) use of aspirin; Z79.899 Other long term (current) drug therapy; Z92.21 Personal history of antineoplastic chemotherapy; Z92.3 Personal history of irradiation; Z85.72 Personal history of non-Hodgkin lymphomas; Z87.891 Personal history of nicotine dependence; Z95.2 Presence of prosthetic heart valve; Z90.81 Acquired absence of spleen; I27.20 Pulmonary hypertension, unspecified; Z91.11 Patient's noncompliance with dietary regimen; Z91.19 Patient's noncompliance with other medical treatment and regimen
CPT/HCPCS: 36415; 36600; 71045; 80048; 80053; 81001; 82803; 83605; 83735; 83880; 84439; 84443; 84484; 85025; 85027; 85610; 87040; 87086; 87449; 87633; 87641; 92526; 93005; 93306; 94002; 94003; 94640; 94667; 94668; 97110; 97162; 97166; 97802; 97803; 99283; J7030; A4216; J1940; J3490